=== PATIENT | female | born 1955 | race Caucasian/White ===

== ENCOUNTER 2019-11-07 06:00 | Outpatient (RCR) | payer MEDICARE, SELFPAY | END 2019-12-07 23:59 | disposition home or self-care (01) | LOC: TPT 06:00 | PROVIDERS: PCP Nurse Practitioner; Referring Provider Specialist; Visit Provider Specialist | DX: M75.02 Adhesive capsulitis of left shoulder (principal) | CPT/HCPCS: 80053; 80061; 82306; 84443; 85025 ==

== ENCOUNTER 2020-08-23 12:28 | Emergency (ER) | payer MEDICARE, SELFPAY ==
--- NOTE | 2020-08-23 12:34 | ECG_ITS ---
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 Measurements Intervals Proctor Rate: 75 P: 46 OH: 173 QRS: 8 QRSD: 76 T: 75 QT: 395 QTc: 444 Interpretive Statements SINUS RHYTHM SEPTAL MYOCARDIAL INFARCTION , OF INDETERMINATE AGE [40+ ms Q WAVE IN V1/V2] No previous ECG available for comparison Electronically Signed On 08-24-2020 6:50:28 CDT by Leigh Pratt M.D. [email or web address] [email or web address] – the jewish hospitalKids Quizine/store/[id number]
--- NOTE | 2020-08-23 12:34 | CT_ITS ---
WS: [id number] CT HEAD TECHNIQUE: Noncontrast CT of the head obtained from the skullbase to the vertex. CLINICAL INFORMATION: Symptoms of Acute Stroke COMPARISON: None. DLP: 835.[address] scans at [facility] use at least one of these dose optimization techniques: automat ed exposure control; mA and/or kV adjustment per patient size (includes targeted exams where dose is matched to clinical indication); or iterative reconstruction. FINDINGS: No evidence of intracranial hemorrhage or mass effect. Ventricular system and basal cisterns are zamarripa nt. Mild small vessel changes with mild parenchymal volume loss. Chronic infarct with encephalomalaci a involving the left caudate and lentiform nucleus. No extra-axial fluid collections. No evidence of mass or mass effect. Mild intracranial vascular calcification. Paranasal sinuses and mastoid air cells are well aerated. .Normal visualized soft tissues. CT/CT head wo con* [id number] IMPRESSION: 1. No evidence of intracranial hemorrhage or mass effect. 2. Mild small vessel changes moderate parenchymal volume loss. 3. Chronic lacunar infarcts left caudate and lentiform nucleus. 4. No acute intracranial findings. Notified Gaston Gomez DO at 08/23/2020 1:30 PM.
--- NOTE | 2020-08-23 12:34 | XRR_ITS ---
PROCEDURE INFORMATION: Exam: XR Chest Exam date and time: 08/23/2020 12:56 PM Age: 64 years old Clinical indication: Dyspnea TECHNIQUE: Imaging protocol: XR of the chest. Views: 1 view. COMPARISON: No relevant prior studies available. FINDINGS: Lungs: Unremarkable. No consolidation. Pleural spaces: Unremarkable. No pleural effusion. No pneumothorax. Heart/Mediastinum: Unremarkable. No cardiomegaly. Bones/joints: Unremarkable. XR/XR chest 1V portable [id number] IMPRESSION: No acute findings.
[2020-08-23 12:40] VITALS: BP 208/119; PULSE 88; RESP 16; TEMP 36.6; O2SAT 98; BMI 33.9
[2020-08-23 13:06] LABS: Basophils # 0.1 10^3/uL (0.0-0.1); Basophils % 1.1 %; Eosinophils # 0.3 10^3/uL (0.0-0.8); Eosinophils % 3.3 %; Hematocrit 45.3 % (37.0-47.0); Hemoglobin 14.7 g/dL (11.5-15.3); Lymphocytes % 36.6 %; Mean Corpuscular HGB Conc 32.5 g/dL (30.0-36.0); Mean Corpuscular Hemoglobin 30.1 pg (28.0-34.0); Mean Corpuscular Volume 92.8 fL (81-99); Mean Platelet Volume 10.9 fL (7.4-10.4); Monocytes # 0.7 10^3/uL (0.2-0.9); Monocytes % 8.3 %; Neutrophils % 50.6 %; Nucleated Red Blood Cells % 0 %; Platelet Count 299 10^3/cmm (130-400); Red Blood Count 4.88 10^6/uL (4.1-5.3); Red Cell Distribution Width 13.3 % (12.1-15.1); White Blood Count 8.3 10^3/uL (4.0-10.0)
[2020-08-23 13:16] LABS: Urine Appearance Clear (CLEAR); Urine Color Straw (Yellow); pH Urine 7 (5-7)
[2020-08-23 13:17] LABS: Add Urine Microscopic? YES; Bilirubin Urine Neg (Negative); Blood Urine 2+ (Negative); Glucose Urine UA Norm (Normal); Ketones Urine Negative (Negative); Leukocyte Esterase Urine Negative (Negative); Nitrate Urine Negative (Negative); Protein Urine Neg (Negative); Urobilinogen Urine Norm (Negative)
[2020-08-23 13:29] LABS: Amphetamines Screen Urine Negative (Negative); Barbiturates Screen Urine Negative (Negative); Benzodiazepines Screen Urine Negative (Negative); Cocaine Screen Urine Negative (Negative); Opiate Screen Urine Negative (Negative); PCP Screen Urine Negative (Negative); THC Screen Urine Negative (Negative)
[2020-08-23 13:37] LABS: Add Urine Culture? No; Bacteria Urine TRACE /hpf; Squamous Epithelial Cell Urine 0-4 /hpf (0-5)
[2020-08-23 13:47] LABS: Alanine Aminotransferase 13 U/L (0-33); Albumin Level 4.7 g/dL (3.5-5.2); Alkaline Phosphatase 83 IU/L (35-105); Aspartate Amino Transferase 18 U/L (0-32); Blood Urea Nitrogen 12 mg/dL (8-23); Calcium 9.1 mg/dL (8.5-10.5); Carbon Dioxide 27 mmol/L (22-29); Chloride 103 mmol/L (98-107); Globulin 2.7 g/dL (1.3-4.6); Glomerular Filtration Rate 62.8 mL/min (90-130); Glucose 86 mg/dL (65-115); Osmolality Calculated 289 mOsm/kg (285-295); Sodium 140 mmol/L (136-145); Total Bilirubin 0.3 mg/dL (0.15-1.2); Total Protein 7.4 g/dL (6.6-8.7)
[2020-08-23 13:50] LABS: Anion Gap 14.5 (5-19); Potassium 4.5 mmol/L (3.5-5.1)
[2020-08-23 14:02] LABS: INR 0.91 (0.8-1.2); Partial Thromboplastin Time 26.3 SECONDS (23.9-36.7)
[2020-08-23 14:50] VITALS: BP 183/94; PULSE 78; RESP 18; O2SAT 98
--- NOTE | 2020-08-23 14:55 | W.ED.DIZZY ---
HPI - Dizziness General: Chief Complaint: Dizziness Stated Complaint: dizzy, HTN, family states slurring words Time Seen by Provider: 08/23/20 12:53 Source: patient and family () Mode of arrival: ambulatory Limitations: no limitations History of Present Illness: HPI Narrative: This is a 64-year-old female with a prior history of hypertension but who has been off her antihypertensives for many years because she says her blood pressure was under control. She has no prior history of CVA. She was in her usual state of health until earlier today when her noticed that she was slurring her speech. At that time her blood pressure was significantly elevated with his systolic in the 200s when he saw her. He gave her one of his lisinopril tablets to attempt to bring her blood pressure down and then brought her to the emergency department to be evaluated. He also states that he thinks the left side of her face was drooping. The patient states that her symptoms have resolved now, she is no longer slurring her words and she feels almost back to her baseline. No focal weakness. MD elicited complaint: dizziness Onset (ago): hour(s) (2) Timing: sudden onset Severity: mild Exacerbating factors: nothing Relieving factors: rest Associated symptoms: Reports headache(s); Denies abnormal vaginal bleeding, change in hearing, chest pain, chills, cough, diaphoresis, ear discharge, ear pressure, fevers/chills, malaise, nausea, nasal congestion, palpitations, rash, short of breath, syncope, tinnitus, vomiting or weakness Associated neuro symptoms: Deny confusion, difficulty speaking, dysphagia, diplopia, extremity weakness, facial numbness, facial weakness, gait changes, numbness in extremities or visual changes Review of Systems General: Reports: 10 or more systems reviewed and unremarkable except in HPI and below Const: Denies: chills, malaise or diaphoresis ENMT: Denies: ear discharge, change in hearing, tinnitus or nasal congestion Card: Denies: chest pain, palpitations or syncope GI: Denies: nausea, vomiting or dysphagia Neuro: Reports: headache(s); Denies: numbness in extremities or confusion Physical Exam Const: COMMON NORMALS: no acute distress, average body habitus, patient oriented x3, no limitations, healthy appearing, alert and well nourished HENMT: COMMON NORMALS: normocephalic, atraumatic and moist oral mucous membranes HEAD & SCALP: normocephalic and atraumatic Eye: COMMON NORMALS: Equal, round and reactive pupils present, EOMs intact bilaterally, conjunctivae normal and no scleral icterus CONJUNCTIVA: Yes conjunctivae normal PUPIL: Yes Equal, round and reactive pupils present Neck/C-Spine: COMMON NORMALS: no meningeal signs and no JVD Resp: COMMON NORMALS: normal respiratory effort, No retractions, No use of accessory muscles, clear to auscultation bilaterally and percussion normal AUSCULTATION: clear to auscultation bilaterally PERCUSSION: percussion normal Cardio: COMMON NORMALS: no JVD, regular rate, regular rhythm, S1 normal heart sound present, S2 normal heart sound present, No gallops present (Cardio), No clicks present (Cardio), No murmurs present (Cardio), No rub (Cardio) and Peripheral pulses 2+ throughout RATE: regular rate RHYTHM: regular rhythm HEART SOUNDS: S1 normal heart sound present and S2 normal heart sound present PERIPHERAL PULSES: Peripheral pulses 2+ throughout GI: COMMON NORMALS: Normal to inspection, nondistended, normoactive bowel sounds present, Soft to palpation, non-tender, No hepatosplenomegaly present, no masses and no bruits PALPATION: Yes Soft to palpation and Yes No hepatosplenomegaly present Extremity: COMMON NORMALS: normal to inspection, full ROM, capillary refill normal, no calf tenderness and no pedal edema Neuro: COMMON NORMALS: patient oriented x3 SENSORIUM/ORIENTATION: Yes alert MENINGEAL SIGNS: Yes no meningeal signs OTHER: NIHSS zero Skin: COMMON NORMALS: no rashes or lesions noted, no wounds, turgor normal, no jaundice, no petechiae and no mottling GENERAL SKIN EXAM: no rashes or lesions noted and turgor normal Course Reevaluation(s): Reevaluation #1: Discussed her lab and imaging findings with her. Explained to her NIHSS score of 0 [address] her [address] Since her symptoms have all resolved I do not think there is any need for further aggressive work-up. She may benefit from some outpatient evaluation such as carotid Dopplers, echocardiogram. Patient and her were hesitant as they said they are uninsured and he may not be able to afford these test. I however advised that she start antihypertensives, statin, but she is unable to take aspirin. Since she said her blood pressure was well controlled with lisinopril 10 mg we will start her on the same medication and she is to follow-up with her primary care provider. They voiced understanding and they are in agreement with the plan. I explained that she may have had a TIA or may be her blood pressure was just high Time: 14:55 Vital Signs: Vital signs: Vital Signs Temperature 97.9 F 08/23/20 12:40 Pulse Rate 78 08/23/20 14:50 Respiratory Rate 18 08/23/20 14:50 Blood Pressure 183/94 08/23/20 14:50 Pulse Oximetry 98 08/23/20 14:50 MDM - Dizziness MDM Narrative: Medical decision making narrative: 64-year-old female patient who came into the emergency department with slurred speech, possible facial droop, all of which had resolved prior to arrival at the ED. Blood pressure was significantly elevated, however it improved without intervention. She used to be on antihypertensives but has been off her antihypertensives for several years. She was given a prescription for lisinopril and atorvastatin. She will follow-up with her primary care provider. Medical Records: Attestation: I reviewed the patient's medical records. Lab Data: Attestation: I reviewed the patient's lab results. Labs: Lab Results 08/23/20 08/23/20 08/23/20 Range/Units 13:00 13:00 13:00 WBC 8.3 (4.0-10.0) 10^3/ uL RBC 4.88 (4.1-5.3) 10^6/u L Hgb 14.7 (11.5-15.3) g/dL Hct 45.3 (37.0-47.0) % MCV 92.8 (81-99) fL MCH 30.1 (28.0-34.0) pg MCHC 32.5 (30.0-36.0) g/dL RDW 13.3 (12.1-15.1) % Plt Count 299 (130-400) 10^3/c mm MPV 10.9 H (7.4-10.4) fL Neut % (Auto) 50.6 % Lymph % (Auto) 36.6 % Rapides % (Auto) 8.3 % Eos % (Auto) 3.3 % Baso % (Auto) 1.1 % Neut # (Auto) 4.20 (1.8-7.7) 10^3/u L Lymph # (Auto) 3.0 (0.8-4.8) 10^3/u L Rapides # (Auto) 0.7 (0.2-0.9) 10^3/u L Eos # (Auto) 0.3 (0.0-0.8) 10^3/u L Baso # (Auto) 0.1 (0.0-0.1) 10^3/u L Nucleated RBC % (a uto) 0 % Nucleated RBCs # 0.0 /100WBC PT (12.1-14.9) SECO NDS INR (0.8-1.2) APTT (23.9-36.7) SECO NDS Sodium 140 (136-145) mmol/L Potassium 4.5 (3.5-5.1) mmol/L Chloride 103 (98-107) mmol/L Carbon Dioxide 27 (22-29) mmol/L Anion Gap 14.5 (5-19) BUN 12 (8-23) mg/dL Creatinine 0.9 (0.5-0.9) mg/dL GFR Calculation 62.8 L (90-130) mL/min Glucose 86 (65-115) mg/dL Calculated Osmolal ity 289 (285-295) mOsm/k g Calcium 9.1 (8.5-10.5) mg/dL Total Bilirubin 0.3 (0.15-1.2) mg/dL AST 18 (0-32) U/L ALT 13 (0-33) U/L Alkaline Phosphata se 83 (35-105) IU/L Total Protein 7.4 (6.6-8.7) g/dL Albumin 4.7 (3.5-5.2) g/dL Globulin 2.7 (1.3-4.6) g/dL Urine Color Straw (Yellow) Urine Appearance Clear (CLEAR) Urine pH 7 (5-7) Ur Specific Gravit y 1.010 (1.005-1.030) Urine Protein Neg (Negative) Urine Glucose (UA) Norm (Normal) Urine Ketones Negative (Negative) Urine Blood 2+ H (Negative) Urine Nitrate Negative (Negative) Urine Bilirubin Neg (Negative) Urine Urobilinogen Norm (Negative) mg/dL Ur Leukocyte Soila ase Negative (Negative) Urine RBC 5-10 H (0-2) /hpf Urine WBC None (0-5) /hpf Ur Squamous Epith Cells 0-4 H (0-5) /hpf Amorphous Sediment Not Reportable Urine Bacteria Trace (NONE) /hpf Urine Opiates Scre en (Negative) ng/mL Ur Barbiturates Sc reen (Negative) ng/mL Ur Phencyclidine S crn (Negative) ng/mL Ur Amphetamines Sc reen (Negative) ng/mL U Benzodiazepines Scrn (Negative) ng/mL Urine Cocaine Scre en (Negative) ng/mL U Marijuana (THC) Screen (Negative) ng/mL 08/23/20 08/23/20 Range/Units 13:00 13:44 WBC (4.0-10.0) 10^3/ uL RBC (4.1-5.3) 10^6/u L Hgb (11.5-15.3) g/dL Hct (37.0-47.0) % MCV (81-99) fL MCH (28.0-34.0) pg MCHC (30.0-36.0) g/dL RDW (12.1-15.1) % Plt Count (130-400) 10^3/c mm MPV (7.4-10.4) fL Neut % (Auto) % Lymph % (Auto) % Rapides % (Auto) % Eos % (Auto) % Baso % (Auto) % Neut # (Auto) (1.8-7.7) 10^3/u L Lymph # (Auto) (0.8-4.8) 10^3/u L Rapides # (Auto) (0.2-0.9) 10^3/u L Eos # (Auto) (0.0-0.8) 10^3/u L Baso # (Auto) (0.0-0.1) 10^3/u L Nucleated RBC % (a uto) % Nucleated RBCs # /100WBC PT 12.50 (12.1-14.9) SECO NDS INR 0.91 (0.8-1.2) APTT 26.3 (23.9-36.7) SECO NDS Sodium (136-145) mmol/L Potassium (3.5-5.1) mmol/L Chloride (98-107) mmol/L Carbon Dioxide (22-29) mmol/L Anion Gap (5-19) BUN (8-23) mg/dL Creatinine (0.5-0.9) mg/dL GFR Calculation (90-130) mL/min Glucose (65-115) mg/dL Calculated Osmolal ity (285-295) mOsm/k g Calcium (8.5-10.5) mg/dL Total Bilirubin (0.15-1.2) mg/dL AST (0-32) U/L ALT (0-33) U/L Alkaline Phosphata se (35-105) IU/L Total Protein (6.6-8.7) g/dL Albumin (3.5-5.2) g/dL Globulin (1.3-4.6) g/dL Urine Color (Yellow) Urine Appearance (CLEAR) Urine pH (5-7) Ur Specific Gravit y (1.005-1.030) Urine Protein (Negative) Urine Glucose (UA) (Normal) Urine Ketones (Negative) Urine Blood (Negative) Urine Nitrate (Negative) Urine Bilirubin (Negative) Urine Urobilinogen (Negative) mg/dL Ur Leukocyte Soila ase (Negative) Urine RBC (0-2) /hpf Urine WBC (0-5) /hpf Ur Squamous Epith Cells (0-5) /hpf Amorphous Sediment Urine Bacteria (NONE) /hpf Urine Opiates Scre en Negative (Negative) ng/mL Ur Barbiturates Sc reen Negative (Negative) ng/mL Ur Phencyclidine S crn Negative (Negative) ng/mL Ur Amphetamines Sc reen Negative (Negative) ng/mL U Benzodiazepines Scrn Negative (Negative) ng/mL Urine Cocaine Scre en Negative (Negative) ng/mL U Marijuana (THC) Screen Negative (Negative) ng/mL Imaging Data^: CXR: Attestation: I personally reviewed and interpreted this imaging study as follows: Radiologist's impression: [address] [id number] ReportSigned Patient: Connie Daugherty #: [id number]: 5Acct#:[id number]/Sex: 64 / FADM Date: 08/23/20Loc: ERRoom/Bed:Attending Dr: Ordering Provider/Ordering MD: Gaston Gomez DO Date of Service: 08/23/20 Procedure(s): XR chest 1V portable [id number] Accession Number(s): [id number] Report Number: [id number] PROCEDURE INFORMATION: Exam: XR Chest Exam date and time: 08/23/2020 12:56 PM Age: 64 years old Clinical indication: Dyspnea TECHNIQUE: Imaging protocol: XR of the chest. Views: 1 view. COMPARISON: No relevant prior studies available. FINDINGS: Lungs: Unremarkable. No consolidation. Pleural spaces: Unremarkable. No pleural effusion. No pneumothorax. Heart/Mediastinum: Unremarkable. No cardiomegaly. Bones/joints: Unremarkable. XR/XR chest 1V portable [id number] IMPRESSION: No acute findings. Dictated By:Laly Osorio By:Laly Osorio Date/Time:08/23/20 1313DD/ 1312 CT Head: Attestation: I personally reviewed and interpreted this imaging study as follows: Radiologist's impression: [address] [id number] Scan ReportSigned Patient: Connie Daugherty #: [id number]: 5Acct#:[id number]/Sex: 64 / FADM Date: 08/23/20Loc: ERRoom/Bed:Attending Dr: Ordering Provider/Ordering MD: Gaston Gomez DO Date of Service: 08/23/20 Procedure(s): CT head wo con* [id number] Accession Number(s): [id number] Report Number: [id number] WS: [id number] CT HEAD TECHNIQUE: Noncontrast CT of the head obtained from the skullbase to the vertex. CLINICAL INFORMATION: Symptoms of Acute Stroke COMPARISON: None. DLP: 835.[address] scans at [facility] use at least one of these dose optimization techniques: automated exposure control; mA and/or kV adjustment per patient size (includes targeted exams where dose is matched to clinical indication); or iterative reconstruction. FINDINGS: No evidence of intracranial hemorrhage or mass effect. Ventricular system and basal cisterns are patent. Mild small vessel changes with mild parenchymal volume loss. Chronic infarct with encephalomalacia involving the left caudate and lentiform nucleus. No extra-axial fluid collections. No evidence of mass or mass effect. Mild intracranial vascular calcification. Paranasal sinuses and mastoid air cells are well aerated. .Normal visualized soft tissues. CT/CT head wo con* [id number] IMPRESSION: 1. No evidence of intracranial hemorrhage or mass effect. 2. Mild small vessel changes moderate parenchymal volume loss. 3. Chronic lacunar infarcts left caudate and lentiform nucleus. 4. No acute intracranial findings. Notified Gaston Gomez DO at 08/23/2020 1:30 PM. Dictated By:Arnaldo Paulson MDSigned By:Arnaldo Paulson MDSigned Date/Time:08/23/20 1332DD/ 1324 EKG Data^: EKG 1: Attestation: I personally reviewed and interpreted this EKG as follows: EKG interpretation date: 08/23/20 EKG interpretation time: 13:45 Prior EKG tracings: not available for review Interpretation: Sinus rhythm. Heart rate [address] changes. Discharge Plan Discharge Patient Disposition: Home Clinical Impression: TIA (transient ischemic attack), Hypertensive urgency Condition: Stable Prescriptions: New lisinopril 10 mg tablet 10 mg PO DAILY Qty: 30 RF: 0 Lipitor 40 mg tablet 40 mg PO DAILY Qty: 30 RF: 0 Discharge Orders: Discharge ED (Routine); Ordered 08/23/20 Ordered By: Jennifer Alicia Discharge Diet: Usual diet Discharge Activity: Increase activity as tolerated Patient Instructions: Transient Ischemic Attack (ED), Hypertensive Crisis (ED) Activity Restrictions/Additional Instructions: Return for any new or worsening symptoms. Take the medications as prescribed. It is important to get your blood pressure under control to prevent worsening symptoms. Follow-up with your primary care provider within 3 days. Check your blood pressure at least once a day and keep a record of your readings so that your doctor can monitor your blood pressures and make adjustments if necessary. Coding Level of Care Code ED Business Systems Advisor for Chg Fwd Exam Comprehensive
== END 2020-08-23 15:17 | disposition home or self-care (01) ==
PROVIDERS: Family Medicine; Emergency Provider Family Medicine
DX: G45.9 Transient cerebral ischemic attack, unspecified (principal); I16.0 Hypertensive urgency
CPT/HCPCS: 70450; 71045; 80053; 80306; 81001; 85025; 85610; 85730; 93005; 99283

== ENCOUNTER 2020-08-23 19:50 | Inpatient (IN) | payer MEDICARE, SELFPAY ==
[2020-08-23 19:53] VITALS: BP 276/142; PULSE 89; RESP 18; TEMP 36.3; O2SAT 98; BMI 34.3
--- NOTE | 2020-08-23 19:56 | XRR_ITS ---
PROCEDURE INFORMATION: Exam: XR Chest Exam date and time: 08/23/2020 8:01 PM Age: 64 years old Clinical indication: Pain; Chest pressure; Additional info: Cp TECHNIQUE: Imaging protocol: XR of the chest. Views: 1 view. COMPARISON: CR XR chest 1V portable [id number] 08/23/2020 12:46 PM FINDINGS: Lungs: Mild chronic interstitial prominence in the lungs. The lungs are otherwise clear. No consolidation. Pleural spaces: Unremarkable. No pleural effusion. No pneumothorax. Heart/Mediastinum: Unremarkable. No cardiomegaly. Bones/joints: Mild thoracic curvature. XR/XR chest 1V portable [id number] IMPRESSION: No acute finding.
--- NOTE | 2020-08-23 19:56 | CTR_ITS ---
PROCEDURE INFORMATION: Exam: CT Angiography Head With Contrast, Arteriography Exam date and time: 08/23/2020 8:25 PM Age: 64 years old Clinical indication: Pain; Weakness and other: Nausea; Headache; Additional info: RAYA TECHNIQUE: Imaging protocol: Computed tomography angiography of the head with contrast. Exam focused on the arteries. 3D rendering (Not supervised by radiologist): MIP and/or 3D reconstructed images were created by the technologist. Radiation optimization: All CT scans at this facility use at least one of these dose optimization techniques: automated exposure control; mA and/or kV adjustment per patient size (includes targeted exams where dose is matched to clinical indication); or iterative reconstruction. Contrast material: OMNI 350; Contrast volume: 95 ml; Contrast route: INTRAVENOUS (IV); COMPARISON: CT head wo con* [id number] 08/23/2020 8:19 PM RADIATION DOSE METRICS: Total DLP (mGy-cm): 2283.23 FINDINGS: ANTERIOR CIRCULATION: Right internal carotid artery: Calcified plaque in the cavernous right internal carotid artery with moderate focal stenosis in the supraclinoid portion. Right middle cerebral artery: Unremarkable. No occlusion or significant stenosis. No aneurysm. Right anterior cerebral artery: Unremarkable. No occlusion or significant stenosis. No aneurysm. Left internal carotid artery: Mild calcified plaque in the left cavernous internal carotid artery without stenosis. Left middle cerebral artery: Unremarkable. No occlusion or significant stenosis. No aneurysm. Left anterior cerebral artery: Unremarkable. No occlusion or significant stenosis. No aneurysm. POSTERIOR CIRCULATION: Right vertebral artery: Unremarkable. No occlusion or significant stenosis. No aneurysm. Left vertebral artery: Unremarkable. No occlusion or significant stenosis. No aneurysm. Basilar artery: Unremarkable. No occlusion or significant stenosis. No aneurysm. Right posterior cerebral artery: Unremarkable. No occlusion or significant stenosis. No aneurysm. Left posterior cerebral artery: Unremarkable. No occlusion or significant stenosis. No aneurysm. Brain: No definite mass, mass effect, or midline shift. Cerebral ventricles: No ventriculomegaly. Bones/joints: Unremarkable. No acute fracture. Soft tissues: Unremarkable. IMPRESSION: 1. Moderate focal stenosis in the supraclinoid right internal carotid artery, most likely atherosclerotic disease. 2. No other large artery occlusion or stenosis identified. PROCEDURE INFORMATION: Exam: CT Angiography Neck With Contrast Exam date and time: 08/23/2020 8:25 PM Age: 64 years old Clinical indication: Pain; Weakness and other: Nausea; Headache; Additional info: RAYA TECHNIQUE: Imaging protocol: Computed tomography angiography of the neck with contrast. 3D rendering (Not supervised by radiologist): MIP and/or 3D reconstructed images were created by the technologist. Radiation optimization: All CT scans at this facility use at least one of these dose optimization techniques: automated exposure control; mA and/or kV adjustment per patient size (includes targeted exams where dose is matched to clinical indication); or iterative reconstruction. Contrast material: OMNI 350; Contrast volume: 95 ml; Contrast route: INTRAVENOUS (IV); COMPARISON: CT head wo con* [id number] 08/23/2020 8:19 PM RADIATION DOSE METRICS: Total DLP (mGy-cm): 2283.23 FINDINGS: Right common carotid artery: Hypodense segmental narrowing in the proximal right common carotid artery measures up to 3 mm in thickness and contributes up to 50% diameter stenosis. Right internal carotid artery: No stenosis of the extracranial segment. No dissection or occlusion. Right external carotid artery: No occlusion or stenosis of the origin. Right vertebral artery: No stenosis. No dissection or occlusion. Left common carotid artery: The left common carotid artery is widely patent and shares a common trunk with the innominate artery. Left internal carotid artery: No stenosis of the extracranial segment. No dissection or occlusion. Left external carotid artery: No occlusion or stenosis of the origin. Left vertebral artery: Tortuosity with kinking and mild narrowing in the proximal left vertebral artery. Otherwise widely patent. Subclavian arteries: Calcified plaque in the proximal left subclavian artery without stenosis. Thyroid: Subcentimeter hypodense nodule in the right thyroid lobe. No follow-up ultrasound is recommended. Bones/joints: No acute fracture. Soft tissues: Normal. No significant soft tissue swelling. Lymph nodes: Prominent mediastinal and hilar lymph nodes are most likely reactive. Calcified mediastinal lymph node. Lungs: Emphysema. CT/CT angio headneck* [id number] IMPRESSION: 1. 50% segmental narrowing of the proximal right common carotid artery is most likely atherosclerotic plaque. A small dissection cannot be entirely excluded. 2. No internal carotid artery stenosis. 3. Kinking and mild narrowing of the proximal left vertebral artery. COMMENTS: Consistent with the [employer]'s Incidental Findings Committee white paper (J Am Chelsey Radiol 2015): In patients aged 35 years and older with an incidental thyroid nodule equal to or greater than 1.[address], MRI or extrathyroidal US, further evaluation with dedicated thyroid US is recommended for patients with normal life expectancy and without comorbidities. For smaller nodules without suspicious features, no further evaluation or follow up is recommended. REFERENCES: NASCET CRITERIA. The degree of internal carotid artery stenosis is based on NASCET criteria. Normal is no stenosis. Mild is less than 50% stenosis. Moderate is 50-69% stenosis. Severe is 70% to 99% stenosis. Total occlusion is no detectable patent lumen. Radiation Dose CTDIVOL = (mGy): DLP = 2283.23~2283.23 (mGy-cm)
--- NOTE | 2020-08-23 19:58 | ECG_ITS ---
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 Measurements Intervals Malcolm Rate: 69 P: 57 WI: 175 QRS: 9 QRSD: 90 T: 77 QT: 424 QTc: 456 Interpretive Statements SINUS RHYTHM NONSPECIFIC T-WAVE ABNORMALITY Compared to ECG 08/23/2020 13:45:14 T-wave abnormality now present Myocardial infarct finding no longer present Electronically Signed On 08-25-2020 10:06:01 CDT by Thomas Kebede M.D. [id number]
--- NOTE | 2020-08-23 20:00 | W.ED.HA ---
HPI - Headache General: Chief Complaint: Headache Stated Complaint: RAYA Time Seen by Provider: 08/23/20 19:51 Source: patient and EMS Mode of arrival: EMS Limitations: no limitations History of Present Illness: HPI Narrative: 64-year-old female seen here earlier today for hypertensive emergency. Patient had a CT head and told she possibly could have a TIA as she had TIA-like symptoms but all her symptoms had completely resolved and her blood pressures improved. States that she went home and couple hours later started having a severe headache. She states she had difficulty walking and some slurred speech Associated symptoms: Deny chest pain, fever(s), nausea, rash or vomiting Review of Systems Const: Denies: fever(s), chills, body aches or change in appetite Eyes: Denies: blurry vision or eye discomfort ENMT: Denies: throat pain or dental pain Card: Denies: chest pain Resp: Denies: dyspnea GI: Denies: abdominal pain, nausea, vomiting or diarrhea : Denies: dysuria Musc: Denies: neck pain or back pain Skin/Breast: Denies: rash Neuro: Reports: headache(s) Psych: Denies: depression Seb/Lymph: Denies: easy bruising All/Imm: Denies: urticaria Physical Exam Const: COMMON NORMALS: no acute distress, patient oriented x3 and healthy appearing HENMT: COMMON NORMALS: normocephalic and atraumatic HEAD & SCALP: normocephalic and atraumatic Eye: COMMON NORMALS: Equal, round and reactive pupils present and EOMs intact bilaterally PUPIL: Yes Equal, round and reactive pupils present Neck/C-Spine: COMMON NORMALS: full ROM and supple Chest: COMMONS NORMALS: normal inspection of the chest and normal palpation of entire chest wall Resp: COMMON NORMALS: normal respiratory effort, No retractions, No use of accessory muscles and clear to auscultation bilaterally AUSCULTATION: clear to auscultation bilaterally Cardio: COMMON NORMALS: regular rate, regular rhythm and No murmurs present (Cardio) RATE: regular rate RHYTHM: regular rhythm GI: COMMON NORMALS: Normal to inspection, nondistended, normoactive bowel sounds present, Soft to palpation, non-tender and no masses PALPATION: Yes Soft to palpation Extremity: COMMON NORMALS: normal to inspection and full ROM Neuro: COMMON NORMALS: patient oriented x3, moves all extremities and no focal motor deficits CRANIAL NERVES: Yes CN normal except as noted SPEECH: speech normal GAIT: Yes Normal gait present Psych: COMMON NORMALS: mental status grossly normal, Normal thought process present and cooperative THOUGHT PROCESS: Normal thought process present Skin: COMMON NORMALS: no rashes or lesions noted and no wounds GENERAL SKIN EXAM: no rashes or lesions noted Course Vital Signs: Vital signs: Vital Signs Temperature 97.4 F L 08/23/20 19:53 Pulse Rate 71 08/23/20 22:20 Respiratory Rate 18 08/23/20 20:59 Blood Pressure 174/80 08/23/20 22:20 Pulse Oximetry 96 08/23/20 22:20 MDM - Headache MDM Narrative: Medical decision making narrative: Patient presents with hypertensive emergency. Patient's headache is improved and her blood pressure is improved here as well. She has no signs of a CVA. Spoke to Dr. Salcedo went over CT findings and will admit to the cardiac stepdown unit. Spoke to hospitalist who is admitting. Patient has been stable while here and is now pain-free and has no neurologic findings. Lab Data: Labs: Lab Results 08/23/20 08/23/20 08/23/20 Range/Units 20:00 20:00 20:00 WBC 10.7 H (4.0-10.0) 10^3/ uL RBC 4.81 (4.1-5.3) 10^6/u L Hgb 14.4 (11.5-15.3) g/dL Hct 44.3 (37.0-47.0) % MCV 92.1 (81-99) fL MCH 29.9 (28.0-34.0) pg MCHC 32.5 (30.0-36.0) g/dL RDW 13.2 (12.1-15.1) % Plt Count 291 (130-400) 10^3/c mm MPV 10.8 H (7.4-10.4) fL Neut % (Auto) 46.3 % Lymph % (Auto) 38.9 % Mcintosh % (Auto) 11.1 % Eos % (Auto) 2.5 % Baso % (Auto) 1.0 % Neut # (Auto) 4.95 (1.8-7.7) 10^3/u L Lymph # (Auto) 4.2 (0.8-4.8) 10^3/u L Mc[place]osh # (Auto) 1.2 H (0.2-0.9) 10^3/u L Eos # (Auto) 0.3 (0.0-0.8) 10^3/u L Baso # (Auto) 0.1 (0.0-0.1) 10^3/u L Nucleated RBC % (a uto) 0 % Nucleated RBCs # 0.0 /100WBC PT 12.60 (12.1-14.9) SECO NDS INR 0.92 (0.8-1.2) Sodium 140 (136-145) mmol/L Potassium 4.1 (3.5-5.1) mmol/L Chloride 104 (98-107) mmol/L Carbon Dioxide 27 (22-29) mmol/L Anion Gap 13.1 (5-19) BUN 17 (8-23) mg/dL Creatinine 1.2 H (0.5-0.9) mg/dL GFR Calculation 45.1 L (90-130) mL/min Glucose 74 (65-115) mg/dL Calculated Osmolal ity 290 (285-295) mOsm/k g Calcium 8.9 (8.5-10.5) mg/dL Total Bilirubin 0.2 (0.15-1.2) mg/dL AST 14 (0-32) U/L ALT 11 (0-33) U/L Alkaline Phosphata se 76 (35-105) IU/L Troponin T Baselin e (0-10) ng/L Total Protein 7.1 (6.6-8.7) g/dL Albumin 4.2 (3.5-5.2) g/dL Globulin 2.9 (1.3-4.6) g/dL 08/23/20 Range/Units 20:00 WBC (4.0-10.0) 10^3/ uL RBC (4.1-5.3) 10^6/u L Hgb (11.5-15.3) g/dL Hct (37.0-47.0) % MCV (81-99) fL MCH (28.0-34.0) pg MCHC (30.0-36.0) g/dL RDW (12.1-15.1) % Plt Count (130-400) 10^3/c mm MPV (7.4-10.4) fL Neut % (Auto) % Lymph % (Auto) % Mcintosh % (Auto) % Eos % (Auto) % Baso % (Auto) % Neut # (Auto) (1.8-7.7) 10^3/u L Lymph # (Auto) (0.8-4.8) 10^3/u L Mcintosh # (Auto) (0.2-0.9) 10^3/u L Eos # (Auto) (0.0-0.8) 10^3/u L Baso # (Auto) (0.0-0.1) 10^3/u L Nucleated RBC % (a uto) % Nucleated RBCs # /100WBC PT (12.1-14.9) SECO NDS INR (0.8-1.2) Sodium (136-145) mmol/L Potassium (3.5-5.1) mmol/L Chloride (98-107) mmol/L Carbon Dioxide (22-29) mmol/L Anion Gap (5-19) BUN (8-23) mg/dL Creatinine (0.5-0.9) mg/dL GFR Calculation (90-130) mL/min Glucose (65-115) mg/dL Calculated Osmolal ity (285-295) mOsm/k g Calcium (8.5-10.5) mg/dL Total Bilirubin (0.15-1.2) mg/dL AST (0-32) U/L ALT (0-33) U/L Alkaline Phosphata se (35-105) IU/L Troponin T Baselin e 8 (0-10) ng/L Total Protein (6.6-8.7) g/dL Albumin (3.5-5.2) g/dL Globulin (1.3-4.6) g/dL Imaging Data^: CT Head: Attestation: I personally reviewed and interpreted this imaging study as follows: Radiologist's impression: [address] [address] [address] Scan Report Signed Patient: Arianne Daugherty Unit #: [id number] : 1955 Age/Sex: 64 / F ADM Date: 08/23/20 Loc: ER Room/Bed: Attending Dr: Ordering Provider/Ordering MD: Miya Minor MD Date of Service: 08/23/20 Procedure(s): CT head wo con* [id number] Accession Number(s): [id number] Report Number: [id number] PROCEDURE INFORMATION: Exam: CT Head Without Contrast Exam date and time: 08/23/2020 8:13 PM Age: 64 years old Clinical indication: Pain; Headache not specified; Additional info: RAYA TECHNIQUE: Imaging protocol: Computed tomography of the head without contrast. Radiation optimization: All CT scans at this facility use at least one of these dose optimization techniques: automated exposure control; mA and/or kV adjustment per patient size (includes targeted exams where dose is matched to clinical indication); or iterative reconstruction. COMPARISON: CT head wo con* [id number] 08/23/2020 1:16 PM RADIATION DOSE METRICS: Total DLP (mGy-cm): 803.02 FINDINGS: Brain: Mild diffuse cortical volume loss. Mild hypodensities in supratentorial periventricular and subcortical white matter, consistent with microangiopathy. No intracranial hemorrhage. Stable lacunar infarcts involving the left caudate head, anterior limb of the left internal capsule, and lentiform nucleus. Cerebral ventricles: No ventriculomegaly. Bones/joints: Unremarkable. No acute fracture. Paranasal sinuses: Visualized sinuses are unremarkable. No fluid levels. Mastoid air cells: Visualized mastoid air cells are well aerated. Vasculature: No hyperdense artery. Soft tissues: Unremarkable. CT/CT head wo con* [id number] IMPRESSION: 1. Stable CT head. No acute findings. 2. Mild microangiopathy and chronic lacunar infarcts. EKG Data^: EKG 1: Attestation: I personally reviewed and interpreted this EKG as follows: EKG interpretation date: 08/23/20 EKG interpretation time: 21:59 Interpretation: nsr hr [address] or t wave abnormalities qrs 90 qtc 443 Discharge Plan Discharge Patient Disposition: Admitted As Inpatient Admit Provider: Raul Pineda Clinical Impression: Hypertensive urgency, Headache Condition: Stable Coding Level of Care Code ED Phlebotomy Director for Chg Fwd Exam Comprehensive
[2020-08-23] MEDS: labetalol 5 mg/mL SDV 20mL 10 MG IVP ×2 (20:02→20:53)
[2020-08-23 20:08] LABS: Basophils # 0.1 10^3/uL (0.0-0.1); Eosinophils # 0.3 10^3/uL (0.0-0.8); Eosinophils % 2.5 %; Hematocrit 44.3 % (37.0-47.0); Hemoglobin 14.4 g/dL (11.5-15.3); Lymphocytes # 4.2 10^3/uL (0.8-4.8); Lymphocytes % 38.9 %; Mean Corpuscular HGB Conc 32.5 g/dL (30.0-36.0); Mean Corpuscular Hemoglobin 29.9 pg (28.0-34.0); Mean Corpuscular Volume 92.1 fL (81-99); Mean Platelet Volume 10.8 fL (7.4-10.4); Monocytes # 1.2 10^3/uL (0.2-0.9); Monocytes % 11.1 %; Neutrophils # 4.95 10^3/uL (1.8-7.7); Neutrophils % 46.3 %; Nucleated Red Blood Cells % 0 %; Platelet Count 291 10^3/cmm (130-400); Red Blood Count 4.81 10^6/uL (4.1-5.3); Red Cell Distribution Width 13.2 % (12.1-15.1); White Blood Count 10.7 10^3/uL (4.0-10.0)
--- NOTE | 2020-08-23 20:08 | PC.NURSE ---
EKG taken and given to provider
--- NOTE | 2020-08-23 20:12 | CTR_ITS ---
PROCEDURE INFORMATION: Exam: CT Head Without Contrast Exam date and time: 08/23/2020 8:13 PM Age: 64 years old Clinical indication: Pain; Headache not specified; Additional info: RAYA TECHNIQUE: Imaging protocol: Computed tomography of the head without contrast. Radiation optimization: All CT scans at this facility use at least one of these dose optimization techniques: automated exposure control; mA and/or kV adjustment per patient size (includes targeted exams where dose is matched to clinical indication); or iterative reconstruction. COMPARISON: CT head wo con* [id number] 08/23/2020 1:16 PM RADIATION DOSE METRICS: Total DLP (mGy-cm): 803.02 FINDINGS: Brain: Mild diffuse cortical volume loss. Mild hypodensities in supratentorial periventricular and subcortical white matter, consistent with microangiopathy. No intracranial hemorrhage. Stable lacunar infarcts involving the left caudate head, anterior limb of the left internal capsule, and lentiform nucleus. Cerebral ventricles: No ventriculomegaly. Bones/joints: Unremarkable. No acute fracture. Paranasal sinuses: Visualized sinuses are unremarkable. No fluid levels. Mastoid air cells: Visualized mastoid air cells are well aerated. Vasculature: No hyperdense artery. Soft tissues: Unremarkable. CT/CT head wo con* [id number] IMPRESSION: 1. Stable CT head. No acute findings. 2. Mild microangiopathy and chronic lacunar infarcts. Radiation Dose CTDIVOL = (mGy): DLP = 803.02 (mGy-cm)
[2020-08-23 20:25] LABS: INR 0.92 (0.8-1.2)
[2020-08-23] MEDS: iohexol 350 mg/mL 100 mL Btl IV (20:28)
[2020-08-23 20:32] LABS: Alanine Aminotransferase 11 U/L (0-33); Albumin Level 4.2 g/dL (3.5-5.2); Alkaline Phosphatase 76 IU/L (35-105); Anion Gap 13.1 (5-19); Aspartate Amino Transferase 14 U/L (0-32); Blood Urea Nitrogen 17 mg/dL (8-23); Calcium 8.9 mg/dL (8.5-10.5); Carbon Dioxide 27 mmol/L (22-29); Chloride 104 mmol/L (98-107); Globulin 2.9 g/dL (1.3-4.6); Glomerular Filtration Rate 45.1 mL/min (90-130); Glucose 74 mg/dL (65-115); Osmolality Calculated 290 mOsm/kg (285-295); Potassium 4.1 mmol/L (3.5-5.1); Sodium 140 mmol/L (136-145); Total Bilirubin 0.2 mg/dL (0.15-1.2); Total Protein 7.1 g/dL (6.6-8.7)
[2020-08-23 20:34] LABS: Troponin(5th) Baseline 8 ng/L (0-10)
[2020-08-23 20:47] VITALS: BP 237/130; PULSE 82; RESP 19; O2SAT 96
[2020-08-23 20:59] VITALS: BP 185/84; PULSE 74; RESP 18; O2SAT 94
--- NOTE | 2020-08-23 21:58 | ECG_ITS ---
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 Measurements Intervals [place] Rate: 68 P: 10 VA: 168 QRS: 42 QRSD: 75 T: -15 QT: 407 QTc: 433 Interpretive Statements SINUS RHYTHM Compared to ECG 08/23/2020 13:45:14 Myocardial infarct finding no longer present Electronically Signed On 08-25-2020 23:58:32 CDT by Thomas Kebede M.D. [id number]
[2020-08-23 22:13] LABS: Troponin 5 2HR 8.63 ng/L (0-10); Troponin 5 2HR Delta 0.63 ABS# (0-10)
[2020-08-23 22:20] VITALS: BP 174/80; PULSE 71; O2SAT 96
--- NOTE | 2020-08-23 22:27 | PM.HP ---
Providers/Chief Complaint Admitting Physician: Raul Pineda Chief Complaint: RAYA History of Present Illness Arianne Daugherty is a 64 year old female with past medical history of hypertension, not treated currently who was initially seen in the emergency room this morning with complaints of headache, slurred speech, nausea, and facial droop. Blood pressure was above 200 at that time. After stabilization of the blood pressure her symptoms resolved and the patient was discharged with prescription for lisinopril and Lipitor home. However her symptoms started again later in the evening and the patient presented to emergency room. This time her blood pressure was in 260-270 range. 2 doses of labetalol were given and most of the symptoms have resolved. Currently she describes mild to moderate headache. CT in the morning and this evening showed no acute abnormalities. She has chronic microvascular changes described. Dr. Salcedo was contacted by ER physician. CTA was ordered: IMPRESSION: 1. 50% segmental narrowing of the proximal right common carotid artery is most likely atherosclerotic plaque. A small dissection cannot be entirely excluded. 2. No internal carotid artery stenosis. 3. Kinking and mild narrowing of the proximal left vertebral artery. Per ED physician, Dr. Salcedo recommended to keep the blood pressure between 160-180. She will see the patient in the morning. No additional testing at this time. The patient reports feeling better now. She reports mild to moderate headache. Her generalized weakness have resolved. No problems with speech, balance, vision at this time. Nausea has resolved. The patient denies associated sensory loss, chest pain, palpitations, vomiting, abdominal pain, fever or chills. Family history. The patient reports family history of hypertension, diabetes and heart disease. Social history. Denies alcohol and drugs. Reports regular tobacco use. Medications are reviewed. Currently takes only Tylenol. Past medical history. Hypertension, untreated Review of Systems General: Reports: 10 or more systems reviewed and unremarkable except in HPI and below Medications/Allergies Home Medications Medication Instructions Recorded Confirmed Last Taken Type atorvastatin [Lipitor] 40 mg PO DAILY #30 tab 08/23/20 Unknown Rx lisinopril 10 mg PO DAILY #30 tab 08/23/20 Unknown Rx Allergies Allergy/AdvReac Type Severity Reaction Status Date / Time codeine Allergy Unknown Verified 08/23/20 22:42 ibuprofen Allergy Unknown Verified 08/23/20 22:42 Penicillins Allergy Unknown Verified 08/23/20 22:42 oral antibiotics Allergy Unknown Uncoded 08/23/20 12:44 Vitals/I&O/Wt Last Vital Signs Temp 97.4 F L 08/23/20 19:53 Pulse 71 08/23/20 22:20 Resp 18 08/23/20 20:59 BP 174/80 08/23/20 22:20 Pulse Ox 96 08/23/20 22:20 Weight last 48 hrs Weight 77.111 kg Physical Exam Narrative: EXAM NARRATIVE: Currently the patient is awake alert oriented. No acute distress. Mood and affect are appropriate. Responses are adequate. Skin is warm and dry. Moist mucous membranes. Normal speech. No dysarthria or aphasia. No facial asymmetry. Cranial nerves II through XII are grossly intact. Eyes PERRL, extraocular muscles are intact No focal deficits or sensory loss on neuro exam. Cerebellar tests are within normal limits. Neck is supple. No JVD Lungs clear to auscultation bilaterally no wheezes or crackles Heart S1, S2, regular Abdomen soft, nontender, bowel sounds are present Extremities no edema cyanosis or calf tenderness bilaterally Data : 08/23/20 20:00 08/23/20 20:00 Other Labs: Laboratory Results WBC 10.7 10^3/uL (4.0-10.0) H 08/23/20 20:00 RBC 4.81 10^6/uL (4.1-5.3) 08/23/20 20:00 Hgb 14.4 g/dL (11.5-15.3) 08/23/20 20:00 Hct 44.3 % (37.0-47.0) 08/23/20 20:00 MCV 92.1 fL (81-99) 08/23/20 20:00 MCH 29.9 pg (28.0-34.0) 08/23/20 20:00 MCHC 32.5 g/dL (30.0-36.0) 08/23/20 20:00 RDW 13.2 % (12.1-15.1) 08/23/20 20:00 Plt Count 291 10^3/cmm (130-400) 08/23/20 20:00 MPV 10.8 fL (7.4-10.4) H 08/23/20 20:00 Neut % (Auto) 46.3 % 08/23/20 20:00 Lymph % (Auto) 38.9 % 08/23/20 20:00 [place] % (Auto) 11.1 % 08/23/20 20:00 Eos % (Auto) 2.5 % 08/23/20 20:00 Baso % (Auto) 1.0 % 08/23/20 20:00 Neut # (Auto) 4.95 10^3/uL (1.8-7.7) 08/23/20 20:00 Lymph # (Auto) 4.2 10^3/uL (0.8-4.8) 08/23/20 20:00 [place] # (Auto) 1.2 10^3/uL (0.2-0.9) H 08/23/20 20:00 Eos # (Auto) 0.3 10^3/uL (0.0-0.8) 08/23/20 20:00 Baso # (Auto) 0.1 10^3/uL (0.0-0.1) 08/23/20 20:00 Nucleated RBC % (auto) 0 % 08/23/20 20:00 Nucleated RBCs # 0.0 /100WBC 08/23/20 20:00 PT 12.60 SECONDS (12.1-14.9) 08/23/20 20:00 INR 0.92 (0.8-1.2) 08/23/20 20:00 Sodium 140 mmol/L (136-145) 08/23/20 20:00 Potassium 4.1 mmol/L (3.5-5.1) 08/23/20 20:00 Chloride 104 mmol/L (98-107) 08/23/20 20:00 Carbon Dioxide 27 mmol/L (22-29) 08/23/20 20:00 Anion Gap 13.1 (5-19) 08/23/20 20:00 BUN 17 mg/dL (8-23) 08/23/20 20:00 Creatinine 1.2 mg/dL (0.5-0.9) H 08/23/20 20:00 GFR Calculation 45.1 mL/min (90-130) L 08/23/20 20:00 Glucose 74 mg/dL (65-115) 08/23/20 20:00 Calculated Osmolality 290 mOsm/kg (285-295) 08/23/20 20:00 Calcium 8.9 mg/dL (8.5-10.5) 08/23/20 20:00 Total Bilirubin 0.2 mg/dL (0.15-1.2) 08/23/20 20:00 AST 14 U/L (0-32) 08/23/20 20:00 ALT 11 U/L (0-33) 08/23/20 20:00 Alkaline Phosphatase 76 IU/L (35-105) 08/23/20 20:00 Troponin T Baseline 8 ng/L (0-10) 08/23/20 20:00 Troponin T 120 Minute 8.63 ng/L (0-10) 08/23/20 21:47 Delta Troponin T 0.63 ABS# (0-10) 08/23/20 21:47 Total Protein 7.1 g/dL (6.6-8.7) 08/23/20 20:00 Albumin 4.2 g/dL (3.5-5.2) 08/23/20 20:00 Globulin 2.9 g/dL (1.3-4.6) 08/23/20 20:00 Impressions Chest X-Ray 08/23/20 19:56 IMPRESSION: No acute finding. Head/Neck CTA 08/23/20 19:56 IMPRESSION: 1. 50% segmental narrowing of the proximal right common carotid artery is most likely atherosclerotic plaque. A small dissection cannot be entirely excluded. 2. No internal carotid artery stenosis. 3. Kinking and mild narrowing of the proximal left vertebral artery. COMMENTS: Consistent with the [place] [employer]'s Incidental Findings Committee white paper (J Am Chelsey Radiol 2015): In patients aged 35 years and older with an incidental thyroid nodule equal to or greater than 1.[address], MRI or extrathyroidal US, further evaluation with dedicated thyroid US is recommended for patients with normal life expectancy and without comorbidities. For smaller nodules without suspicious features, no further evaluation or follow up is recommended. REFERENCES: NASCET CRITERIA. The degree of internal carotid artery stenosis is based on NASCET criteria. Normal is no stenosis. Mild is less than 50% stenosis. Moderate is 50-69% stenosis. Severe is 70% to 99% stenosis. Total occlusion is no detectable patent lumen. Radiation Dose CTDIVOL = (mGy): DLP = 2283.23~2283.23 (mGy-cm) Head CT 08/23/20 20:12 IMPRESSION: 1. Stable CT head. No acute findings. 2. Mild microangiopathy and chronic lacunar infarcts. Radiation Dose CTDIVOL = (mGy): DLP = 803.02 (mGy-cm) A&P Additional A&P Information 64-year-old female with past medical history of untreated hypertension who presents with complaints of generalized weakness, headache, nausea, slurred speech, and facial droop. The patient is found to have blood pressure reaching 270. Symptoms have resolved with correction of the blood pressure. Dr. Salcedo was called and will see the patient in the morning. Hypertensive encephalopathy. Now resolved. At this time will maintain her blood pressure at 160 180 range. The patient will be seen by Dr. Salcedo in the morning. Hypertensive emergency. We will start the patient on metoprolol and lisinopril. Will order as needed Vasotec. Possible hyperlipidemia. We will check her fasting lipids in the morning. We will continue Lipitor which was ordered earlier today by ER. DVT prophylaxis. Teds and SCDs. No anticoagulation due to hypertensive emergency and risk of intracranial bleeding. Tobacco abuse. Counseling is provided. She verbalized understanding. CODE STATUS. She wants to be full code. The plan of care was discussed with the patient. She verbalized agreement with the plan of care. Attestations Medical Necessity Statement*: Observation ..... Coding Level of Care Code Acute Optical Lab Technician for Brian Francois
[2020-08-23 22:46] VITALS: BP 168/88; PULSE 91; RESP 22; TEMP 36.5; O2SAT 97
[2020-08-23] MEDS: acetaminophen 325 mg Tablet 650 MG PO (23:38)
[2020-08-24] VITALS (13 sets, daily range): BP systolic 146–210; BP diastolic 65–106; PULSE 65–79; RESP 14–28; TEMP 36.4–36.8; O2SAT 93–96
--- NOTE | 2020-08-24 01:58 | ECG_ITS ---
[facility] Test Date: 2020-08-24 Pat Name: Arianne Daugherty Department: Room: 107 Gender: Female Program Manager Environmental Planning: : 1955 Requested By: Miya Minor Order Number: [id number] Erica MD: Thomas Kebede M.D. Measurements Intervals [place] Rate: 74 P: 45 IN: 184 QRS: 9 QRSD: 89 T: 73 QT: 408 QTc: 455 Interpretive Statements SINUS RHYTHM NONSPECIFIC T-WAVE ABNORMALITY Compared to ECG 08/23/2020 21:59:38 No significant changes Electronically Signed On 08-25-2020 23:59:06 CDT by Thomas Kebede M.D. [email or web address] [email or web address] clinic [email or web address] [email or web address], [email or web address]/store/[id number]
[2020-08-24 03:37] LABS: Basophils # 0.1 10^3/uL (0.0-0.1); Basophils % 0.8 %; Eosinophils # 0.2 10^3/uL (0.0-0.8); Eosinophils % 2.1 %; Hematocrit 39.5 % (37.0-47.0); Hemoglobin 12.4 g/dL (11.5-15.3); Lymphocytes # 3.3 10^3/uL (0.8-4.8); Lymphocytes % 32.2 %; Mean Corpuscular HGB Conc 31.4 g/dL (30.0-36.0); Mean Corpuscular Hemoglobin 29.7 pg (28.0-34.0); Mean Corpuscular Volume 94.5 fL (81-99); Mean Platelet Volume 11.1 fL (7.4-10.4); Monocytes # 1.1 10^3/uL (0.2-0.9); Monocytes % 10.4 %; Neutrophils # 5.62 10^3/uL (1.8-7.7); Neutrophils % 54.3 %; Nucleated Red Blood Cells % 0 %; Platelet Count 251 10^3/cmm (130-400); Red Blood Count 4.18 10^6/uL (4.1-5.3); Red Cell Distribution Width 13.5 % (12.1-15.1); White Blood Count 10.4 10^3/uL (4.0-10.0)
[2020-08-24 04:06] LABS: Chol HDL Ratio 4.04 mg/dL (0.0-4.40); Cholesterol 186 mg/dL (0-200); HDL Cholesterol 46 mg/dL (60-100); LDL Cholesterol Calculated 119 mg/dL (50-129); LDL HDL Ratio 2.59 RATIO (0.00-3.22); Triglycerides 107 mg/dL (0-150)
[2020-08-24 04:15] LABS: Blood Urea Nitrogen 16 mg/dL (8-23); Calcium 8.5 mg/dL (8.5-10.5); Carbon Dioxide 24 mmol/L (22-29); Chloride 104 mmol/L (98-107); Glomerular Filtration Rate 49.8 mL/min (90-130); Glucose 98 mg/dL (65-115); Magnesium 2.1 mg/dL (1.7-2.3); Osmolality Calculated 287 mOsm/kg (285-295); Sodium 138 mmol/L (136-145); Thyroid Stimulating Hormone 3.57 uIU/mL (0.27-4.20)
[2020-08-24] MEDS: lisinopril 5 mg Tablet PO ×2 (08:23→17:00)
[2020-08-24] MEDS: atorvastatin 40 mg Tablet PO (08:23)
[2020-08-24] MEDS: metoprolol tartrate 25 mg Tablet PO (08:23)
[2020-08-24] MEDS: acetaminophen 325 mg Tablet 650 MG PO ×2 (08:56→16:59)
--- NOTE | 2020-08-24 10:16 | PC.CHAP ---
Pastoral Care Encounter/Spiritual Assessment Type of Contact [] Declined patient account analyst visit [] Patient/Family/Request visit [] Outpatient visit [] Follow-up visit [] Physician referral [] Code/Alert [x] Routine visit [] Staff referral [] Actively dying [] Patient sleeping [x] Family support [] [] Out of room [] Palliative care [] [] Receiving care in room [] Pre-surgical visit [] Trauma [] Long length of stay [] ICU visit [] Other: Relational/Emotional Strength [] Patient feels connected with others/family/visitors/staff [] Distress [] Loneliness/isolation [] Abandonment Spirituality of Patient [] Person of Jessie [] Attends Moravian of their Jessie [] Believes in Prayer [] Reads Bible or Adventist materials [] There are Spiritual issues to be addressed Flat Bed Operator Interventions [x] Prayer [x] Active listening [x] Non-anxious presence [x] Spiritual/emotional support [] Crisis/trauma care [] Spiritual counseling [] Bereavement support [] Provided bereavement packet [] Provided Bible/devotional materials [] Provided toy/stuffed animal, coloring book to patient or family member [] Provided Communion [] Anointing/[place] [] Salvation [x] Completed spiritual assessment [] Other: Impact on Illness or Injury [] Angry [] Fearful [] Anxious [] Often cries [] Exhaustion [] Unable to work [] Unable to attend mandaeism [] Unable to walk/stand [] Unable to read [] Unable to drive [] Unable to eat/drink [] Unable to sleep [] Unable to be with family [] Patient intubated [] Other: Summary patient has terrible headache.. blood pressure is still high.... Time spent with patient 15 min
--- NOTE | 2020-08-24 11:20 | MR_ITS ---
WS: [id number] MRI HEAD WITHOUT CONTRAST TECHNIQUE: Sagittal T1, T2 axial, T2 axial FLAIR, axial and coronal T1 images, axial susceptibility w eighted imaging, axial diffusion weighted images, and coronal T2 images were obtained. CLINICAL INFORMATION: TIA, slurred speech, facial drooping, dizziness, RAYA COMPARISON: CT August 23, 2020 and CTA August 23, 2020 FINDINGS: Tiny focus of restricted diffusion in the right frost radiata consistent with a tiny focus of acute ischemia. Increased diffusion signal in the right centrum semiovale appears to represent T2 shine thr ough. No other foci of acute ischemia. Moderate small vessel changes. Mild parenchymal volume loss. S mall vessel changes in the sarah. Normal posterior fossa. Normal vascular flow voids at the skull base . No extra-axial fluid collections. No evidence of mass or mass effect. Chronic lacunar infarcts in the caudate bilaterally and left lent iform nucleus. Paranasal sinuses and mastoid air cells are well aerated. Normal optic chiasm and pitu itary infundibulum. Mild symmetric atrophy temporal lobes and hippocampal formations. No hemosiderin on susceptibly weighted images. MR/MR head wo con* [id number] IMPRESSION: 1. Tiny focus of acute ischemia involving the right frost radiata in the tess ventricular white matter. This most likely represents a tiny acute lacunar infa rct 2. No other foci of restricted diffusion. 3. Moderate small vessel changes with mild parenchymal volume loss. 4. Chronic lacunar infarcts involving the caudate bilaterally and left lentifo rm nucleus. 5. Small vessel changes in the sarha. 6. Mild symmetric atrophy temporal lobes and hippocampal formations. 7. No hemosiderin on susceptibly weighted images. Notified Ren Felix MD at 08/24/2020 4:15 PM.
--- NOTE | 2020-08-24 11:24 | USCV_ITS ---
Arianne Daugherty Age: 64 Gender: F : 1955 Exam Date: 08/24/2020 13:38 Ordering Phys: Ren Felix MD Technologist: Lizz Don Exam Location: [facility] [place] Indication: HTN BP: 176 / 70 HR: 67 Rhythm: Sinus Technical Quality: Adequate MEASUREMENTS (Male / Female) Normal Values 2D ECHO LV Diastolic Diameter PLAX 3.5 cm 4.2 - 5.9 / 3.9 - 5.3 cm LV Systolic Diameter PLAX 2.0 cm IVS Diastolic Thickness 1.1 cm 0.6 - 1.0 / 0.6 - 0.9 cm IVS Systolic Thickness 1.4 cm LVPW Diastolic Thickness 1.5 cm 0.6 - 1.0 / 0.6 - 0.9 cm LVPW Systolic Thickness 2.0 cm RV Chamber Size 3.6 cm LVOT Diameter 2.0 cm LV Ejection Fraction 2D Teich 73.7 % LV Ejection Fraction MOD 2C 78.5 % LV Ejection Fraction 2C AL 79.8 % LA Diameter 3.1 cm LA Width 3.3 cm LA Height 5.2 cm RA Width 3.2 cm RA Height 4.5 cm Aorta at Sinotubular Diameter 2.5 cm M-MODE LV Diastolic Diameter MM 4.0 cm 4.2 - 5.9 / 3.9 - 5.3 cm LV Systolic Diameter MM 2.2 cm LV Ejection Fraction MM Teich 77.1 % IVS Diastolic Thickness MM 1.0 cm 0.6 - 1.0 / 0.6 - 0.9 cm IVS Systolic Thickness MM 1.4 cm LVPW Diastolic Thickness MM 1.5 cm 0.6 - 1.0 / 0.6 - 0.9 cm LVPW Systolic Thickness MM 1.8 cm Aortic Annulus Diameter 2.5 cm LA Ao Ratio MM 1.2 MV E Point Septal Separation 0.4 cm DOPPLER AV Peak Velocity 163.0 cm/s LVOT Peak Velocity 132.3 cm/s AV Area Cont Eq vti 3.1 cm squared AV Area Cont Eq pk 2.6 cm squared MV Area PHT 4.4 cm squared Mitral E to A Ratio 0.9 MV E' Velocity 49.5 cm/s Mitral E to MV E' Ratio 12.5 Mitral E to LV E' Lateral Ratio 11.7 Mitral E to LV E' Septal Ratio 13.6 TR Peak Velocity 260.3 cm/s TR Peak Gradient 27.1 mmHg Right Atrial Pressure 3.0 mmHg Pulmonary Artery Systolic Pressu 30.1 mmHg PV Peak Velocity 97.0 cm/s RV Acceleration Time 0.1 s RV Ejection Time 0.3 s RV AcT/ET 0.3 FINDINGS Left Ventricle Normal left ventricular size and systolic function, EF 77 %. Mild left ventricular hypertrophy. No regional wall motion abnormalities. Grade I/IV diastolic dysfunction (abnormal relaxation filling pattern), normal to mildly elevated filling pressures. Right Ventricle The right ventricle is normal in size and function. Right Atrium The right atrium is normal in size. Left Atrium Mildly increased left atrial size. Mitral Valve Thickened mitral valve. Aortic Valve No gross abnormalities noted Tricuspid Valve Trace tricuspid valve regurgitation. Estimated pulmonary artery peak systolic pressure 30 mmHg Pulmonic Valve Structurally normal pulmonic valve without significant stenosis. There is no pulmonic regurgitation. Pericardium Normal pericardium without effusion. Aorta Normal ascending aorta dimension. CONCLUSIONS Normal left ventricular size and systolic function, EF 77 %. Mild left ventricular hypertrophy. No regional wall motion abnormalities. Grade I/IV diastolic dysfunction (abnormal relaxation filling pattern), normal to mildly elevated filling pressures. Thickened mitral valve. Trace tricuspid valve regurgitation. Estimated pulmonary artery peak systolic pressure 30 mmHg. There is no pericardial effusion. No previous study is available for comparison. Dr Thomas Kebede MD [facility] (Electronically Signed) Final Date: 25 Aug 2020 01:25 S
--- NOTE | 2020-08-24 11:25 | P.PN_ITS ---
Subjective Subjective: Interval history: Admitted overnight. H&P and labs noted. Examination patient's at bedside. Patient seems overall anxious. Denies any nausea, vomiting, headache, slurring of speech, dizziness, weakness in any of her arms or legs or facial droop anymore. Complaining of headache which is generalized. Denies any neck pain. Blood pressure better than before. Examination 140 systolics. Vitals/I&O/Wt Last Vital Signs Temp 98.3 F 08/24/20 07:20 Pulse 72 08/24/20 07:20 Resp 14 08/24/20 07:20 BP 176/70 08/24/20 07:20 Pulse Ox 93 08/24/20 07:20 08/23/20 08/24/20 08/24/20 22:59 06:59 14:59 Intake Total 50 / 50 360 / 360 Output Total Balance 49 / 49 360 / 360 Weight last 48 hrs Weight 77.111 kg Physical Exam Narrative: EXAM NARRATIVE: Currently the patient is awake alert oriented. No acute distress. Mood and affect are appropriate. Responses are adequate. Skin is warm and dry. Moist mucous membranes. Normal speech. No dysarthria or aphasia. No facial asymmetry. Cranial nerves II through XII are grossly intact. Eyes PERRL, extraocular muscles are intact No focal deficits or sensory loss on neuro exam. Cerebellar tests are within normal limits. Neck is supple. No JVD Lungs clear to auscultation bilaterally no wheezes or crackles Heart S1, S2, regular Abdomen soft, nontender, bowel sounds are present Extremities no edema cyanosis or calf tenderness bilaterally Data : 08/24/20 03:05 08/24/20 03:05 A&P Assessment and plan (1) Hypertensive urgency: Status: Acute (2) TIA (transient ischemic attack): Status: Acute (3) Headache: Status: Acute (4) HLD (hyperlipidemia): Status: Acute (5) HTN (hypertension): Status: Acute Additional A&P Information 64-year-old female with past medical history of untreated hypertension who presents with complaints of generalized weakness, headache, nausea, slurred speech, and facial droop. The patient is found to have blood pressure reaching 270. Symptoms have resolved with correction of the blood pressure. Dr. Salcedo was called and will see the patient in the morning. Hypertesive Emergency: Target BP around 170 mmhg- 25% of presenting BP. Start patient on amlodipine 10 mg daily. Change metoprolol to carvedilol 12.5 mg twice daily. Continue lisinopril 5 mg twice daily. Will uptitrate medication accordingly. Hydralazine 10 mg IV every 6 hours as needed for systolic blood pressure more than 180. TIA: Can be hypertensive encephalopathy but cannot rule out stroke given the fact that patient has hyperlipidemia and uncontrolled hypertension. MRI brain. Continue atorvastatin 40 mg daily. Lipid panel appreciated. Check HbA1c. Check echocardiogram. Continue telemetry. Possible carotid dissection: As per CTA done last night. Confirmed with Dr. Paulson. He states it is unlikely but difficult to exclude. Plan will be to follow-up with an MRI to rule out any bleed and then repeat CTA tomorrow that will be 24 hours after the last contrast study to confirm. For now continue with aspirin, statin. Headache: Could be because of hypertensive nephropathy. Case discussed with Dr. Salcedo. Have advised to start patient on D.H.E. 45 protocol. Topamax 50 mg twice daily. Check iron panel, ferritin, TSH. SCDs for DVT prophylaxis. No pharmacological DVT prophylaxis to avoid possible bleed. Cardiac diet. Physical therapy eval. Change admission to inpatient because of continuous hypertensive emergency, possible carotid dissection. Attestations Medical Necessity Statement*: Hospitalization for management of continuous hypertensive emergency, possible carotid dissection as seen on CTA head and neck. Time Spent in Patient Care: Greater than 35 minutes (>than 50% of time spent in counselling and/or direct pt care on unit) . Coding Level of Care Code Acute Planer Off Bearer for g Fwd Diagnoses Hypertensive urgency I16.0 TIA (transient ischemic attack) G45.9 Headache R51.9 HLD (hyperlipidemia) E78.5 HTN (hypertension) I10
[2020-08-24 12:04] LABS: Iron 35 ug/dL (37-145); Percent Saturation 14.6 % (20-50); Total Iron Binding Capacity 239 mcg/dl; Unsaturated Iron Binding 204 ug/dL (112-347)
[2020-08-24] MEDS: amlodipine 10 mg Tablet PO (12:10)
[2020-08-24] MEDS: topiramate 25 mg Tablet 50 MG PO ×2 (12:13→16:59)
--- NOTE | 2020-08-24 14:25 | PC.NURSE ---
to mri via stretcher at this time
--- NOTE | 2020-08-24 14:25 | PC.NURSE ---
pt's headache has gradually relieved,as bp has come under control
--- NOTE | 2020-08-24 15:49 | PC.NURSE ---
return from mri at 1530.bp 182/96.anterior headache rated 4-5/10.bp 165/71 at 1544.states when bp goes up,my headache increases.dr moses notified
[2020-08-24] MEDS: aspirin 81 mg EC Tablet PO (16:43)
[2020-08-24] MEDS: hyDRALAzine 20 mg/mL INJ 1 mL 10 MG IVP ×2 (16:44→19:55)
[2020-08-24] MEDS: carvedilol 12.5 mg Tablet PO (16:55)
--- NOTE | 2020-08-24 17:40 | CTR_ITS ---
PROCEDURE INFORMATION: Exam: CT Head Without Contrast Exam date and time: 08/24/2020 6:17 PM Age: 64 years old Clinical indication: Weakness, facial; Patient HX: Left sided facial droop, high BP TECHNIQUE: Imaging protocol: Computed tomography of the head without contrast. Radiation optimization: All CT scans at this facility use at least one of these dose optimization techniques: automated exposure control; mA and/or kV adjustment per patient size (includes targeted exams where dose is matched to clinical indication); or iterative reconstruction. Other technique: STROKE PROTOCOL was implemented. COMPARISON: CT head wo con* [id number] 08/23/2020 8:19 PM RADIATION DOSE METRICS: Total DLP (mGy-cm): 841.37 FINDINGS: Brain: There is a focal hypodensity in the left lentiform nucleus suggesting a chronic lacunar infarct. There is hypoattenuation in the periventricular and subcortical white matter consistent with chronic microvascular disease. There is no acute intracranial hemorrhage. Cerebral ventricles: There is no significant ventricular dilation. The basal cisterns are unremarkable. Bones/joints: The calvarium is intact. Paranasal sinuses: The paranasal sinuses are clear. Mastoid air cells: The mastoid air cells are clear. Soft tissues: The visible extracranial soft tissues are unremarkable. CT/CT head wo con* [id number] IMPRESSION: 1. No acute findings. 2. Old lacunar infarct in the left lentiform nucleus. ASSESSMENT: ASPECTS ([place] Stroke Program Early CT Score) is 10. Radiation Dose CTDIVOL = (mGy): DLP = 841.37 (mGy-cm)
[2020-08-24] MEDS: ondansetron 2 mg/ML SDV 2 mL 4 MG IVP (17:59)
[2020-08-24] MEDS: LORazepam 2 mg/mL INJ 1 mL 0.5 MG IVP (18:00)
--- NOTE | 2020-08-24 19:29 | PC.NURSE ---
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
[2020-08-24 20:23] LABS: Glucose Point of Care 132 mg/dL (70-110)
[2020-08-24] MEDS: sodium chloride 0.9% 1,000 ML 999 ML (20:30)
--- NOTE | 2020-08-24 20:40 | PC.NURSE ---
Around 1919: Patient sedated, drowsy, responds easily to verbal commands. Disoriented to situation. 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 Resting in bed, spouse at bedside. Around 2009: Notified by patient spouse that patient needed assistance. Entered room, Patient on diaphoretic on bedside commode c/o nausea, dizziness, and feeling hot . Spouse stated the patient threw up when he transferred her to the [facility] [place]. Patient speech slurred, hypotensive (Manual B/P:90/50). Transferred patient to bed with JENAE Delcid. All Vitals retaken taken, all WDL. Notified Dr. Pineda, Hospitalist. Orders received to transfer patient to ICU.
[2020-08-25] VITALS (20 sets, daily range): BP systolic 140–196; BP diastolic 64–102; PULSE 64–85; RESP 12–25; TEMP 36.7–36.9; O2SAT 92–97
--- NOTE | 2020-08-25 00:15 | PC.NURSE ---
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 [id number] this nurse noticed improved speech pattern, patient reported no pain at this time, able to follow commands, at bedside
--- NOTE | 2020-08-25 01:26 | P.PN_ITS ---
Subjective Subjective: Interval history: I was asked by the nurse to see the patient due to hypotension at about 1930. The patient was just diagnosed with lacunar stroke confirmed by MRI performed at about 1600. The patient received lorazepam and hydralazine prior to the event. On evaluation the patient is very weak and unresponsive, does not follow instructions. Her blood pressure is at 80s. The skin is cold and diaphoretic. The is at the bedside. He reports that the patient tried to get out just prior to the event and felt very dizzy and lightheaded. The patient was put in Trendelenburg position. A bolus of NS was given. Blood pressure improved after fluids and the patient was transferred to ICU. Their follow-up blood pressure was at 160s range. On repeat evaluation the patient has slurry speech. Mild left-sided facial droop and left upper extremity 4 out of 5 weakness. I spoke with the who is still at the bedside in ICU. According to him this weakness has improved compared to before the hypotensive event. The patient denies any headache, confusion, nausea or vomiting. No chest pain. Medications: Reviewed: Yes Medication Review Details: 3Generic Name Dose Route Start Last Admin Trade Name Freq PRN Reason Stop Dose Admin Acetaminophen 650 mg 08/23/20 22:19 08/24/20 16:59 Acetaminophen 32 5 Mg Tablet PO 650 mg Q6H PRN Administration Mild/Mod Pain Or Temp >/= 101 Amlodipine Besylat e 10 mg 08/24/20 11:25 08/24/20 12:10 Amlodipine 10 Mg Tablet PO 10 mg DAILY THEA Administration Aspirin 81 mg 08/24/20 17:00 08/24/20 16:43 Aspirin 81 Mg Ec Tablet PO 81 mg DAILY THEA Administration Atorvastatin Calci um 40 mg 08/24/20 09:00 08/24/20 08:23 Atorvastatin 40 Mg Tablet PO 40 mg DAILY THEA Administration Carvedilol 12.5 mg 08/24/20 18:00 08/24/20 16:55 Carvedilol 12.5 Mg Tablet PO 12.5 mg BID THEA Administration Hydralazine HCl 10 mg 08/24/20 16:26 08/24/20 19:55 Hydralazine 20 M g/Ml Inj 1 Ml IVP 10 mg Q4H PRN Administration SBP more than 180 mmhg Lisinopril 5 mg 08/24/20 09:00 08/24/20 17:00 Lisinopril 5 Mg Tablet PO 5 mg BID THEA Administration Lorazepam 0.5 mg 08/24/20 17:53 08/24/20 18:00 Lorazepam 2 Mg/M l Inj 1 Ml IVP 0.5 mg NOW PRN Administration ANXIETY Ondansetron HCl 4 mg 08/23/20 22:19 08/24/20 17:59 Ondansetron 2 Mg /Ml Sdv 2 Ml IVP 4 mg Q6H PRN Administration vomiting, or N/V if npo Topiramate 50 mg 08/24/20 11:05 08/24/20 16:59 Topiramate 25 Mg Tablet PO 50 mg BID THEA Administration Vitals/I&O/Wt Last Vital Signs Temp 97.6 F 08/24/20 15:32 Pulse 78 08/24/20 17:35 Resp 28 H 08/24/20 17:35 BP 178/88 08/25/20 00:00 Pulse Ox 95 08/24/20 17:35 08/24/20 08/24/20 08/25/20 14:59 22:59 06:59 Intake Total 360 / 360 Balance 360 / 360 Weight last 48 hrs Weight 77.111 kg Data : 08/24/20 03:05 08/24/20 03:05 Other Labs: Laboratory Results WBC 10.4 10^3/uL (4.0-10.0) H 08/24/20 03:05 RBC 4.18 10^6/uL (4.1-5.3) 08/24/20 03:05 Hgb 12.4 g/dL (11.5-15.3) 08/24/20 03:05 Hct 39.5 % (37.0-47.0) 08/24/20 03:05 MCV 94.5 fL (81-99) 08/24/20 03:05 MCH 29.7 pg (28.0-34.0) 08/24/20 03:05 MCHC 31.4 g/dL (30.0-36.0) 08/24/20 03:05 RDW 13.5 % (12.1-15.1) 08/24/20 03:05 Plt Count 251 10^3/cmm (130-400) 08/24/20 03:05 MPV 11.1 fL (7.4-10.4) H 08/24/20 03:05 Neut % (Auto) 54.3 % 08/24/20 03:05 Lymph % (Auto) 32.2 % 08/24/20 03:05 [place] % (Auto) 10.4 % 08/24/20 03:05 Eos % (Auto) 2.1 % 08/24/20 03:05 Baso % (Auto) 0.8 % 08/24/20 03:05 Neut # (Auto) 5.62 10^3/uL (1.8-7.7) 08/24/20 03:05 Lymph # (Auto) 3.3 10^3/uL (0.8-4.8) 08/24/20 03:05 [place] # (Auto) 1.1 10^3/uL (0.2-0.9) H 08/24/20 03:05 Eos # (Auto) 0.2 10^3/uL (0.0-0.8) 08/24/20 03:05 Baso # (Auto) 0.1 10^3/uL (0.0-0.1) 08/24/20 03:05 Nucleated RBC % (auto) 0 % 08/24/20 03:05 Nucleated RBCs # 0.0 /100WBC 08/24/20 03:05 PT 12.60 SECONDS (12.1-14.9) 08/23/20 20:00 INR 0.92 (0.8-1.2) 08/23/20 20:00 Sodium 138 mmol/L (136-145) 08/24/20 03:05 Potassium 4.0 mmol/L (3.5-5.1) 08/24/20 03:05 Chloride 104 mmol/L (98-107) 08/24/20 03:05 Carbon Dioxide 24 mmol/L (22-29) 08/24/20 03:05 Anion Gap 14.0 (5-19) 08/24/20 03:05 BUN 16 mg/dL (8-23) 08/24/20 03:05 Creatinine 1.1 mg/dL (0.5-0.9) H 08/24/20 03:05 GFR Calculation 49.8 mL/min (90-130) L 08/24/20 03:05 Glucose 98 mg/dL (65-115) 08/24/20 03:05 POC Glucose 132 mg/dL (70-110) H 08/24/20 20:21 Calculated Osmolality 287 mOsm/kg (285-295) 08/24/20 03:05 Calcium 8.5 mg/dL (8.5-10.5) 08/24/20 03:05 Magnesium 2.1 mg/dL (1.7-2.3) 08/24/20 03:05 Iron 35 ug/dL (37-145) L 08/24/20 03:05 TIBC 239 mcg/dl 08/24/20 03:05 % Saturation 14.6 % (20-50) L 08/24/20 03:05 Unsat Iron Binding 204 ug/dL (112-347) 08/24/20 03:05 Total Bilirubin 0.2 mg/dL (0.15-1.2) 08/23/20 20:00 AST 14 U/L (0-32) 08/23/20 20:00 ALT 11 U/L (0-33) 08/23/20 20:00 Alkaline Phosphatase 76 IU/L (35-105) 08/23/20 20:00 Troponin T Baseline 8 ng/L (0-10) 08/23/20 20:00 Troponin T 120 Minute 8.63 ng/L (0-10) 08/23/20 21:47 Delta Troponin T 0.63 ABS# (0-10) 08/23/20 21:47 Troponin T Hi Sens 6Hr 6.00 ng/L (0-10) 08/24/20 03:05 Troponin T Hi Sens 6Hr Delta -2.00 ng/L (0-12) L 08/24/20 03:05 Total Protein 7.1 g/dL (6.6-8.7) 08/23/20 20:00 Albumin 4.2 g/dL (3.5-5.2) 08/23/20 20:00 Globulin 2.9 g/dL (1.3-4.6) 08/23/20 20:00 Triglycerides 107 mg/dL (0-150) 08/24/20 03:05 Cholesterol 186 mg/dL (0-200) 08/24/20 03:05 LDL Cholesterol, Calc 119 mg/dL (50-129) 08/24/20 03:05 HDL Cholesterol 46 mg/dL (60-100) L 08/24/20 03:05 LDL/HDL Ratio 2.59 RATIO (0.00-3.22) 08/24/20 03:05 Cholesterol/HDL Ratio 4.04 mg/dL (0.0-4.40) 08/24/20 03:05 TSH 3.57 uIU/mL (0.27-4.20) 08/24/20 03:05 Impressions Chest X-Ray 08/23/20 19:56 IMPRESSION: No acute finding. Head/Neck CTA 08/23/20 19:56 IMPRESSION: 1. 50% segmental narrowing of the proximal right common carotid artery is most likely atherosclerotic plaque. A small dissection cannot be entirely excluded. 2. No internal carotid artery stenosis. 3. Kinking and mild narrowing of the proximal left vertebral artery. COMMENTS: Consistent with the [employer]'s Incidental Findings Committee white paper (J Am Chelsey Radiol 2015): In patients aged 35 years and older with an incidental thyroid nodule equal to or greater than 1.[address], MRI or extrathyroidal US, further evaluation with dedicated thyroid US is recommended for patients with normal life expectancy and without comorbidities. For smaller nodules without suspicious features, no further evaluation or follow up is recommended. REFERENCES: NASCET CRITERIA. The degree of internal carotid artery stenosis is based on NASCET criteria. Normal is no stenosis. Mild is less than 50% stenosis. Moderate is 50-69% stenosis. Severe is 70% to 99% stenosis. Total occlusion is no detectable patent lumen. Radiation Dose CTDIVOL = (mGy): DLP = 2283.23~2283.23 (mGy-cm) Head MRI 08/24/20 11:20 IMPRESSION: 1. Tiny focus of acute ischemia involving the right frost radiata in the periventricular white matter. This most likely represents a tiny acute lacunar infarct 2. No other foci of restricted diffusion. 3. Moderate small vessel changes with mild parenchymal volume loss. 4. Chronic lacunar infarcts involving the caudate bilaterally and left lentiform nucleus. 5. Small vessel changes in the sarah. 6. Mild symmetric atrophy temporal lobes and hippocampal formations. 7. No hemosiderin on susceptibly weighted images. Notified Ren Felix MD at 08/24/2020 4:15 PM. A&P Additional A&P Information Acute hypotensive event/orthostatic hypotension. Currently stabilized. We will go ahead and hold her maintenance blood pressure medications. The patient is transferred to ICU. Discussed with the nurse. I asked him to call me if the blood pressure is above 180. We will make a clinical decision at that time. Will allow permissive hypertension due to CVA. Acute CVA. right frost radiata. Left-sided weakness according to the has improved. Slurry speech. Continue aspirin, Lipitor, permissive hypertension. Attestations Medical Necessity Statement*: 40 minutes are spent on this encounter. Coding Level of Care Code Acute Medical Claims Analyst for Brian Francois
[2020-08-25 05:07] LABS: Basophils # 0.1 10^3/uL (0.0-0.1); Basophils % 0.7 %; Eosinophils # 0.1 10^3/uL (0.0-0.8); Eosinophils % 0.9 %; Hematocrit 44.8 % (37.0-47.0); Hemoglobin 13.8 g/dL (11.5-15.3); Lymphocytes # 2.8 10^3/uL (0.8-4.8); Lymphocytes % 24.8 %; Mean Corpuscular HGB Conc 30.8 g/dL (30.0-36.0); Mean Corpuscular Hemoglobin 29.7 pg (28.0-34.0); Mean Corpuscular Volume 96.3 fL (81-99); Mean Platelet Volume 11.2 fL (7.4-10.4); Monocytes # 0.7 10^3/uL (0.2-0.9); Monocytes % 5.9 %; Neutrophils % 67.4 %; Nucleated Red Blood Cells % 0 %; Platelet Count 284 10^3/cmm (130-400); Red Blood Count 4.65 10^6/uL (4.1-5.3); Red Cell Distribution Width 13.6 % (12.1-15.1); White Blood Count 11.1 10^3/uL (4.0-10.0)
[2020-08-25 05:21] LABS: Alanine Aminotransferase 10 U/L (0-33); Albumin Level 3.9 g/dL (3.5-5.2); Alkaline Phosphatase 73 IU/L (35-105); Anion Gap 15.2 (5-19); Aspartate Amino Transferase 14 U/L (0-32); Blood Urea Nitrogen 19 mg/dL (8-23); Calcium 8.9 mg/dL (8.5-10.5); Carbon Dioxide 20 mmol/L (22-29); Chloride 106 mmol/L (98-107); Glomerular Filtration Rate 49.8 mL/min (90-130); Glucose 108 mg/dL (65-115); Osmolality Calculated 287 mOsm/kg (285-295); Potassium 4.2 mmol/L (3.5-5.1); Sodium 137 mmol/L (136-145); Total Bilirubin 0.4 mg/dL (0.15-1.2); Total Protein 6.9 g/dL (6.6-8.7)
--- NOTE | 2020-08-25 05:35 | PC.NURSE ---
Unable to scan patient at time of delivery of fluid bolus given around [address] Pineda's orders. See MAR.
[2020-08-25 05:49] LABS: Estmated Average Glucose 97
--- NOTE | 2020-08-25 07:00 | CT_ITS ---
WS: [id number] CTA HEAD AND NECK TECHNIQUE: Contrast enhanced CTA of the head and neck with coronal and sagittal reformatted images an d maximum intensity projection (MIP) images. NASCET criteria utilized. CLINICAL INFORMATION: HTN urgency, Possible right carotid dissection COMPARISON: CTA August 23, 2020 and MRI August 24, 2020 DLP: 2354.[address] scans at [facility] use at least one of these dose optimization techniques: automat ed exposure control; mA and/or kV adjustment per patient size (includes targeted exams where dose is matched to clinical indication); or iterative reconstruction. FINDINGS: Low-attenuation change in the right frost radiata extending into the right basal ganglia consistent with subacute ischemia. This is new or progressed compared to the MRI from yesterday. This measures a pproximately 10 mm in the right frost radiata/basal ganglia. RIGHT: Right common carotid artery is patent with a more normal appearance today. No dissection. No s ignificant right ICA stenosis. Tortuous right cervical ICA. ICA is patent to the skull base. No disse ction. LEFT: Left common carotid artery is patent. Normal carotid bulb and proximal ICA. Left ICA is patent to the skull base. No significant left ICA stenosis. Tortuous cervical ICA. INTRACRANIAL CTA: Codominant and patent vertebral arteries bilaterally. Basilar artery is patent. Nor mal vascularity to the CONSUMER ATTORNEY territory bilaterally. Both ICAs are patent at the skull base. Mild cavernous carotid calcification. Moderate to severe narr owing right supraclinoid ICA unchanged from previous. Hypoplastic right A1 segment. Normal anterior c ommunicating artery. Normal vascularity to the PAULO and MCA territories bilaterally. No flow-limiting stenosis. Stable thyroid nodules CT/CT angio headneck* [id number] IMPRESSION: 1. Progression of the ischemia seen on the recent MRI involving the right sonny na radiata and extending into the basal ganglia measuring approximately 10 mm w ith low-attenuation change. 2. Moderate/severe narrowing of the right supraclinoid ICA is stable in appear ance. Residual patent lumen measuring 1.5 mm. 3. No flow-limiting intracranial stenosis. Hypoplastic right A1 segment. 4. Right common carotid artery has a more normal appearance today. No evidence of dissection. No significant right ICA stenosis. 5. No significant left ICA stenosis. 6. Both vertebral arteries are patent. 7. No other significant changes from previous. Message left for Ren Felix MD at 08/25/2020 10:43 AM.
--- NOTE | 2020-08-25 08:46 | P.CONIM_ITS ---
Providers/Reason For Consult Consulting Physican/Specialty*: Ren Felix Reason for Consult*: Waxing and waning neurologic symptoms Requesting Physcian: Ren Felix Attending Physician: Ren Felix MD History of Present Illness History of Present Illness Arianne Daugherty is a 64 year old woman with recent problems with hypertension and migrainous headache. She came to the emergency department complaining of dizziness and slurred speech with elevated blood pressure. She had a normal neurologic exam when she came to the emergency department and felt that her symptoms had resolved. Her NIH stroke scale score was [address] scan of the head was negative. Her blood pressure was treated and she was sent home. She returned several hours later complaining that she was having trouble walking and her speech was slurred. In the emergency department she had a negative n eurologic exam with stroke scale score of 0, and CT scan of the head once again showed nonspecific white matter changes. Dr. Minor called me about the patient and we discussed that it would be better, in view of the neurologic symptoms, to be cautious about dropping the blood pressure. CT angiogram showed 50% narrowing of the proximal right common carotid and the radiologist could not rule out a dissection. I discussed with Dr. Minor that the patient should be treated as a stroke with antiplatelet therapy, atorvastatin and gentle blood pressure management. I talked with Dr. Omalley yesterday as the patient was still complaining of headache and her blood pressure was elevated. I recommended D.H.E. [facility] protocol. I was called last evening stat for stroke alert because the patient had markedly elevated blood pressure with a severe headache. She was anxious and diaphoretic. She had mild dysarthria. Repeat CT scan of the head showed no changes. Brain MRI yesterday showed a tiny punctate region of ischemia in the subcortical right frost radiata. There was an old lacunar in the left internal capsule and multiple chronic white matter changes consistent with her history of smoking and migraine. She got up to the bathroom about 9:00 last night after receiving hydralazine and lorazepam. Her blood pressure dropped to 80. She was pale. She received a bolus of normal saline was transferred to ICU. Her reports that she is much better today than she was yesterday. Review of Systems Const: Reports: body aches and fatigue; Denies: fever(s) or chills Eyes: Reports: photophobia; Denies: change in vision Card: Denies: chest pain or palpitations Resp: Denies: dyspnea GI: Denies: abdominal pain or nausea : Denies: flank pain or urinary frequency Musc: Reports: neck pain Neuro: Reports: headache(s), weakness in extremities, lack of coordination, difficulty walking and dizziness; Denies: sensory changes Psych: Reports: anxiety; Denies: depression Seb/Lymph: Denies: easy bruising Meds/Allergies Home Medications and Allergies Home Medications Medication Instructions Recorded Confirmed Last Taken Type atorvastatin [Lipitor] 40 mg PO DAILY #30 tab 08/23/20 08/23/20 08/23/20 Rx diphenhydramine-acetaminophen 1 tab PO BEDTIME 08/23/20 08/23/20 1 Day Ago History [Tylenol PM Extra Strength] ~08/22/20 lisinopril 10 mg PO DAILY #30 tab 08/23/20 08/23/20 08/23/20 Rx Allergies Allergy/AdvReac Type Severity Reaction Status Date / Time codeine Allergy Unknown Verified 08/23/20 22:42 ibuprofen Allergy Unknown Verified 08/23/20 22:42 Penicillins Allergy Unknown Verified 08/23/20 22:42 oral antibiotics Allergy Unknown Uncoded 08/23/20 12:44 Current Medications Current Medications Generic Name Dose Route Start Last Admin Trade Name Freq PRN Reason Stop Dose Admin Acetaminophen 650 mg 08/23/20 22:19 08/24/20 16:59 Acetaminophen 325 Mg Tablet PO 650 mg Q6H PRN Administration Mild/Mod Pain Or Temp >/= 101 Aspirin 81 mg 08/24/20 17:00 08/24/20 16:43 Aspirin 81 Mg Ec Tablet PO 81 mg DAILY THEA Administration Atorvastatin Calcium 40 mg 08/24/20 09:00 08/24/20 08:23 Atorvastatin 40 Mg Tablet PO 40 mg DAILY THEA Administration Ondansetron HCl 4 mg 08/23/20 22:19 08/24/20 17:59 Ondansetron 2 Mg/Ml Sdv 2 Ml IVP 4 mg Q6H PRN Administration vomiting, or N/V if npo Topiramate 50 mg 08/24/20 11:05 08/24/20 16:59 Topiramate 25 Mg Tablet PO 50 mg BID THEA Administration PFSH Acute PFSH: Medical History HLD (hyperlipidemia) HTN (hypertension) Vitals/I&O/Wt Last Vital Signs Temp 97.6 F 08/24/20 15:32 Pulse 66 08/25/20 07:01 Resp 19 H 08/25/20 04:00 BP 161/80 08/25/20 04:00 Pulse Ox 92 08/25/20 04:00 08/24/20 08/25/20 08/25/20 22:59 06:59 14:59 Intake Total 482.85 / 842.85 Output Total 450 / 450 Balance 482.85 / 842.85 -450 / 392.85 Weight last 48 hrs Weight 170 lb Physical Exam Narrative: EXAM NARRATIVE: GENERAL: The patient was overweight with short stature and appropriately groomed in hospital attire. MENTAL STATUS: She has a left gaze preference. Orientation was full to 10 of 10 questions of orientation. Speech was moderately dysarthric but easily intelligible. No difficulty following a complex command. The affect was euthymic. CRANIAL NERVES: Visual hidalgo were full to confrontation, direct and consensual. Extraocular movements were full without nystagmus. Eye movements somewhat ratchety. PERRLA. Face was flat on the left. Facial sensation was intact in all three distributions of the fifth cranial nerve bilaterally to touch. Hearing was intact to soft spoken voice. Guttural and lingual movements slow. Shoulders were symmetric at rest and with shoulder shrug. MOTOR: There was no drift of the extended arms. Fine movements in the hands were rapid and symmetric. Toe tapping was rapid and symmetric. Power was 5/5 in all the muscles of all four extremities tested individually. Bulk and tone were normal. There was no atrophy. No fasciculations were seen. SENSATION: No subjective change in pin and touch on the right side compared to the left COORDINATION: No specific cerebellar findings. DEEP TENDON REFLEXES: Toes upgoing bilaterally GAIT: Not tested HEENT: Normocephalic without dysmorphic features. Conjunctivae were not injected and sclerae were nonicteric. Temporal artery pulses were strong bilaterally and the arteries were nontender. NECK: Carotid upstroke was strong bilaterally without bruits. CHEST: Clear to auscultation. CARDIOVASCULAR: The heart sounds were normal without murmur or gallop. Regular rate and rhythm. EXTREMITIES: Short stature. No deformities. A&P Assessment and plan (1) Acute right arterial ischemic stroke, middle cerebral artery (MCA): 64-year-old woman with multiple risk factors for stroke including smoking and hypertension [id number] who presents with status migrainosus and findings that suggest a right middle cerebral artery stroke. She has a suspicious region in the proximal right carotid artery that looks like a dissection. Efforts have been made to keep her blood pressure within a mild hypertensive range without overshooting. She is to have repeat CT angiogram t his morning to look for any progression of the potential dissection in the right carotid artery. Recommendations for treatment of carotid dissection, it is extracranial, have shown no difference between antiplatelet therapy and anticoagulation, a trend toward increasing hemorrhages in the anticoagulation group. There is no consensus on appropriate treatment. If there is progression of her dissection we could talk with a higher level of care about whether she would be a candidate for stenting. Continued cautious management of blood pressure is advised, as autoregulation is disturbed in the setting of acute ischemic stroke. Status: Acute (2) Hypertensive urgency: Status: Acute (3) Status migrainosus: Her headache is much better today and so is her neurologic state. Continue to use morphine as needed since all other options failed and it would be reasonable to start her on Topamax 50 mg twice a day. There is a big disconnect between her examination and her findings on MRI which could imply that some of her symptoms are migrainous. Status: Acute Coding Level of Care Code Acute Nuts And Bolts Assembler for Brian Francois Diagnoses Acute right arterial ischemic stroke, middle cerebral artery (MCA) I63.511 Hypertensive urgency I16.0 Status migrainosus G43.901
--- NOTE | 2020-08-25 08:47 | PC.CHAP ---
Pastoral Care Encounter/Spiritual Assessment Type of Contact [] Declined patient navigator visit [] Patient/Family/Request visit [] Outpatient visit [] Follow-up visit [] Physician referral [] Code/Alert [x] Routine visit [] Staff referral [] Actively dying [] Patient sleeping [x] Family support [] [] Out of room [] Palliative care [] [] Receiving care in room [] Pre-surgical visit [] Trauma [] Long length of stay [x] ICU visit [x] Other: moved from cardiac unit to ICU lst night... blood pressure dropped Relational/Emotional Strength [] Patient feels connected with others/family/visitors/staff [] Distress [] Loneliness/isolation [] Abandonment Spirituality of Patient [x] Person of Jessie [] Attends Sikh of their Jessie [] Believes in Prayer [] Reads Bible or Quaker materials [] There are Spiritual issues to be addressed A And P Technician Interventions [x] Prayer [x] Active listening [x] Non-anxious presence []x Spiritual/emotional support [] Crisis/trauma care [] Spiritual counseling [] Bereavement support [] Provided bereavement packet [] Provided Bible/devotional materials [] Provided toy/stuffed animal, coloring book to patient or family member [] Provided Communion [] Anointing/[place] [] Salvation [x] Completed spiritual assessment [] Other: Impact on Illness or Injury [] Angry [] Fearful [] Anxious [] Often cries [] Exhaustion [] Unable to work [] Unable to attend baptist [] Unable to walk/stand [] Unable to read [] Unable to drive [] Unable to eat/drink [] Unable to sleep [] Unable to be with family [] Patient intubated [] Other: Summary setting well... blood pressure seems stable.. spouse present... Time spent with patient 10 min
[2020-08-25] MEDS: aspirin 81 mg EC Tablet PO (08:57)
[2020-08-25] MEDS: atorvastatin 40 mg Tablet PO (08:57)
[2020-08-25] MEDS: topiramate 25 mg Tablet 50 MG PO ×2 (08:57→17:26)
[2020-08-25] MEDS: iodixanol 320 mg/mL 100mL Btl IV (09:50)
--- NOTE | 2020-08-25 10:32 | P.PN_ITS ---
Subjective Subjective: Interval history: Patient had hypotension for which she was moved to the ICU after giving 1 L bolus IV fluid. After that blood pressures became better. She had symptoms of slurred speech, facial droop, weakness in arms and legs which resolved a little bit but have remained persistent since then. Patient denies any headache anymore. Denies any nausea or vomiting. Medications: Reviewed: Yes Vitals/I&O/Wt Last Vital Signs Temp 97.6 F 08/24/20 15:32 Pulse 66 08/25/20 07:01 Resp 19 H 08/25/20 04:00 BP 161/80 08/25/20 04:00 Pulse Ox 92 08/25/20 04:00 08/24/20 08/25/20 08/25/20 22:59 06:59 14:59 Intake Total 482.85 / 842.85 Output Total 450 / 450 Balance 482.85 / 842.85 -450 / 392.85 Weight last 48 hrs Weight 77.111 kg Physical Exam Narrative: EXAM NARRATIVE: General: No acute distress, AO x3 HEENT: PERRLA, pupils bilaterally equal and reactive Chest: Normal vesicular breath sounds, no added sounds, equal good air entry bilaterally CVS: S1-S2 regular, no murmurs, no tachycardia, no gallops, no rubs Abdomen: Soft, nontender, no organomegaly, bowel sounds present Neuro: Facial droop present, AO x3, Visual hidalgo were full to confrontation, direct and consensual. Extraocular movements were full without nystagmus. Eye movements somewhat ratchety. PERRLA. Face was flat on the left. Facial sensation was intact in all three distributions of the fifth cranial nerve bilaterally to touch. Hearing was intact to soft spoken voice. Guttural and lingual movements slow. Shoulders were symmetric at rest and with shoulder shrug. MOTOR: There was no drift of the extended arms. Fine movements in the hands were rapid and symmetric. Toe tapping was rapid and symmetric. Power was 5/5 in all the muscles of all four extremities tested individually. Bulk and tone were normal. There was no atrophy. No fasciculations were seen. Data : 08/25/20 04:25 08/25/20 04:25 A&P Assessment and plan (1) Acute right arterial ischemic stroke, middle cerebral artery (MCA): Status: Acute (2) Status migrainosus: Status: Acute (3) Hypertensive urgency: Status: Acute (4) TIA (transient ischemic attack): Status: Acute (5) Headache: Status: Acute (6) HLD (hyperlipidemia): Status: Acute (7) HTN (hypertension): Status: Acute Additional A&P Information 64-year-old female with past medical history of untreated hypertension who presents with complaints of generalized weakness, headache, nausea, slurred speech, and facial droop. The patient is found to have blood pressure reaching 270. Symptoms have resolved with correction of the blood pressure. Dr. Salcedo was called and will see the patient in the morning. Right MCA stroke: Progressive changes on the CTA done today as compared to MRI yesterday. Appreciate Dr. Salcedo's recommendations. Permissive hypertension.We will treat if blood pressures go over 200 mmHg. Aspirin, Plavix, statin. Physical therapy, Occupational Therapy, speech therapy. Echocardiogram shows an EF of 77% with grade 1 diastolic dysfunction, mild LVH, thickened mitral valve. Patient will most likely need an event monitor and JAYSHREE as an outpatient. Hypertension: Most likely patient has had uncontrolled hypertension for a long time. Once the acute stage is gone patient will need a tighter blood pressure monitoring. Patient would benefit from lisinopril 10 mg, carvedilol 6.25 mg twice daily with up titration as an outpatient once. Of permissive hypertension is gone. Carotid dissection: Ruled out on repeat CTA. Headache: Continue with Topamax as recommended by Dr. Salcedo. Move to CSU for further monitoring. Oral iron supplementation for iron deficiency anemia. TSH, lipid panel, A1c results appreciated. Lovenox for DVT prophylaxis. Cardiac diet. Famotidine for PUD prophylaxis. Attestations Medical Necessity Statement*: Patient requires further hospitalization for progressive right MCA stroke, tighter blood pressure monitoring. Time Spent in Patient Care: Greater than 35 minutes (>than 50% of time spent in counselling and/or direct pt care on unit) . Coding Level of Care Code Acute Truck Guard for Brian Francois Diagnoses Acute right arterial ischemic stroke, middle cerebral artery (MCA) I63.511 Status migrainosus G43.901 Hypertensive urgency I16.0 TIA (transient ischemic attack) G45.9 Headache R51.9 HLD (hyperlipidemia) E78.5 HTN (hypertension) I10
[2020-08-25] MEDS: clopidogrel 75 mg Tablet PO (11:29)
[2020-08-25] MEDS: aspirin 81 mg EC Tablet 162 MG PO (11:29)
[2020-08-25] MEDS: enoxaparin 40 mg/0.4 mL Syringe SUBCUT (11:29)
--- NOTE | 2020-08-25 16:18 | PC.RESP ---
SMOKING CESSATION INFORMATION SENT TO PATIENT.
[2020-08-25] MEDS: famotidine 20 mg Tablet PO (17:26)
[2020-08-26 03:13] VITALS: BP 216/94; PULSE 81; RESP 15; TEMP 36.7; O2SAT 98
--- NOTE | 2020-08-26 03:24 | PC.NURSE ---
Spoke with Dr. Pineda regarding this patient's HTN 218/93. Received order for Hydralazine see
[2020-08-26] MEDS: hyDRALAzine 20 mg/mL INJ 1 mL 5 MG IVP (03:31)
[2020-08-26 03:55] LABS: Basophils # 0.1 10^3/uL (0.0-0.1); Basophils % 0.9 %; Eosinophils # 0.3 10^3/uL (0.0-0.8); Hematocrit 42.7 % (37.0-47.0); Hemoglobin 13.5 g/dL (11.5-15.3); Lymphocytes # 4.2 10^3/uL (0.8-4.8); Lymphocytes % 44.9 %; Mean Corpuscular HGB Conc 31.6 g/dL (30.0-36.0); Mean Corpuscular Hemoglobin 29.7 pg (28.0-34.0); Mean Corpuscular Volume 94.1 fL (81-99); Mean Platelet Volume 11.2 fL (7.4-10.4); Monocytes # 0.8 10^3/uL (0.2-0.9); Monocytes % 8.4 %; Neutrophils # 3.94 10^3/uL (1.8-7.7); Neutrophils % 42.6 %; Nucleated Red Blood Cells % 0 %; Platelet Count 287 10^3/cmm (130-400); Red Blood Count 4.54 10^6/uL (4.1-5.3); Red Cell Distribution Width 13.4 % (12.1-15.1); White Blood Count 9.3 10^3/uL (4.0-10.0)
[2020-08-26 04:29] LABS: Alanine Aminotransferase 9 U/L (0-33); Albumin Level 3.8 g/dL (3.5-5.2); Alkaline Phosphatase 70 IU/L (35-105); Anion Gap 15.7 (5-19); Aspartate Amino Transferase 14 U/L (0-32); Blood Urea Nitrogen 17 mg/dL (8-23); Calcium 8.9 mg/dL (8.5-10.5); Carbon Dioxide 20 mmol/L (22-29); Chloride 108 mmol/L (98-107); Glucose 80 mg/dL (65-115); Osmolality Calculated 291 mOsm/kg (285-295); Potassium 3.7 mmol/L (3.5-5.1); Sodium 140 mmol/L (136-145); Total Bilirubin 0.5 mg/dL (0.15-1.2); Total Protein 6.8 g/dL (6.6-8.7)
[2020-08-26 06:11] VITALS: PULSE 89
[2020-08-26 07:29] VITALS: BP 179/81; PULSE 75; RESP 19; TEMP 36.8; O2SAT 97
[2020-08-26] MEDS: topiramate 25 mg Tablet 50 MG PO (08:44)
[2020-08-26] MEDS: aspirin 81 mg EC Tablet PO (08:45)
[2020-08-26] MEDS: clopidogrel 75 mg Tablet PO (08:45)
[2020-08-26] MEDS: atorvastatin 40 mg Tablet PO (08:45)
[2020-08-26] MEDS: famotidine 20 mg Tablet PO (08:45)
--- NOTE | 2020-08-26 11:07 | PM.DCS ---
Discharge Providers Date of Admission: 08/24/20 11:20 Date of Discharge: August 26, 2020 Attending Provider at Admission: Raul Pineda Attending Provider at Discharge: Ren Felix MD Consults: Neurology: Dr. Salcedo Diagnoses at Discharge Discharge Diagnosis (1) Acute right arterial ischemic stroke, middle cerebral artery (MCA): Status: Acute (2) Status migrainosus: Status: Acute (3) Hypertensive urgency: Status: Acute (4) TIA (transient ischemic attack): Status: Acute (5) Headache: Status: Acute (6) HLD (hyperlipidemia): Status: Acute (7) HTN (hypertension): Status: Acute Reason for Visit Reason for Visit: RAYA Hospital Course Hospital Course Arianne Daugherty is a 64 year old female with past medical history of hypertension, not treated currently who was initially seen in the emergency room this morning with complaints of headache, slurred speech, nausea, and facial droop. Blood pressure was above 200 at that time. After stabilization of the blood pressure her symptoms resolved and the patient was discharged with prescription for lisinopril and Lipitor home. However her symptoms started again later in the evening and the patient presented to emergency room. This time her blood pressure was in 260-270 range. 2 doses of labetalol were given and most of the symptoms have resolved. Currently she describes mild to moderate headache. CT in the morning and this evening showed no acute abnormalities. She has chronic microvascular changes described. Dr. Salcedo was contacted by ER physician. Patient was admitted to the hospital for further management. At first it was thought that patient's symptoms are most likely because of hypertensive urgency. She was treated by oral antihypertensives with goal blood pressures of 20 to 25% of her presenting blood pressures. CTA done on the admission was suspicious for possible right common carotid small dissection. MRI was done which was consistent with lacunar infarct. Her hospital stay was complicated by developing further neurological symptoms for which repeat CTA was done which was consistent with progressive right MCA infarct but ruled out common carotid dissection. She was treated with permissible hypertension and once out of window antihypertensives were adjusted. Patient was seen by physical therapy, social welfare administrator, occupational and speech therapy. She is been discharged with home health for further rehabitation on oral antihypertensives. Family and patient has been counseled in detail regarding proper medication and blood pressure monitoring at home while she would maintain a blood pressure diary and foot follow-up with her primary care provider on the same date for further adjustment of antihypertensives and follow-up with Dr. Salcedo in 2 weeks. Medications have been provided to her at bedside. Walker has been ordered for her as per physical therapy recommendations. Physical Exam Narrative: EXAM NARRATIVE: General: No acute distress, AO x3 HEENT: PERRLA, pupils bilaterally equal and reactive Chest: Normal vesicular breath sounds, no added sounds, equal good air entry bilaterally CVS: S1-S2 regular, no murmurs, no tachycardia, no gallops, no rubs Abdomen: Soft, nontender, no organomegaly, bowel sounds present Neuro: Facial droop present, AO x3, Visual h[place] were full to confrontation, direct and consensual. Extraocular movements were full without nystagmus. Eye movements somewhat ratchety. PERRLA. Face was flat on the left. Facial sensation was intact in all three distributions of the fifth cranial nerve bilaterally to touch. Hearing was intact to soft spoken voice. Guttural and lingual movements slow. Shoulders were symmetric at rest and with shoulder shrug. MOTOR: There was no drift of the extended arms. Fine movements in the hands were rapid and symmetric. Toe tapping was rapid and symmetric. Power was 5/5 in all the muscles of all four extremities tested individually. Bulk and tone were normal. There was no atrophy. No fasciculations were seen. Discharge Data Data Completed and Pending: Completed Studies During Hospitalization Category Date Time Status CT angio headneck * [id number] Rout ine Cat Scan 08/25/20 07:[address] angio headneck * [id number] Urge nt Cat Scan 08/23/20 19:[address] head wo con* 7 0450 Stat Cat Scan 08/24/20 17:[address] head wo con* 7 0450 Urgent Cat Scan 08/23/20 20:12 Completed XR chest 1V emma ble [id number] Urgent Exams 08/23/20 19:56 Completed MR head wo con* 7 0551 Urgent MRI 08/24/20 11:20 Completed CV echo complete* [id number] Routine Ultrasound 08/24/20 11:24 Completed Pending at discharge Category Date Time Status MR head wo con* 7 0551 Urgent MRI 08/24/20 14:30 Unverified Labs from last 24 hours 08/26/20 08/26/20 03:15 03:15 WBC 9.3 RBC 4.54 Hgb 13.5 Hct 42.7 MCV 94.1 MCH 29.7 MCHC 31.6 RDW 13.4 Plt Count 287 MPV 11.2 H Neut % (Auto) 42.6 Lymph % (Auto) 44.9 [place] % (Auto) 8.4 Eos % (Auto) 3.0 Baso % (Auto) 0.9 Neut # (Auto) 3.94 Lymph # (Auto) 4.2 [place] # (Auto) 0.8 Eos # (Auto) 0.3 Baso # (Auto) 0.1 Nucleated RBC % (a uto) 0 Nucleated RBCs # 0.0 Sodium 140 Potassium 3.7 Chloride 108 H Carbon Dioxide 20 L Anion Gap 15.7 BUN 17 Creatinine 0.8 GFR Calculation 72.0 L Glucose 80 Calculated Osmolal ity 291 Calcium 8.9 Total Bilirubin 0.5 AST 14 ALT 9 Alkaline Phosphata se 70 Total Protein 6.8 Albumin 3.8 Globulin 3.0 Addt'l Data from Hospital Stay: Laboratory Results WBC 9.3 10^3/uL (4.0- 10.0) 08/26/20 03:15 RBC 4.54 10^6/uL (4.1 -5.3) 08/26/20 03:15 Hgb 13.5 g/dL (11.5-1 5.3) 08/26/20 03:15 Hct 42.7 % (37.0-47.0 ) 08/26/20 03:15 MCV 94.1 fL (81-99) 08/26/20 03:15 MCH 29.7 pg (28.0-34. 0) 08/26/20 03:15 MCHC 31.6 g/dL (30.0-3 6.0) 08/26/20 03:15 RDW 13.4 % (12.1-15.1 ) 08/26/20 03:15 Plt Count 287 10^3/cmm (130 -400) 08/26/20 03:15 MPV 11.2 fL (7.4-10.4 ) H 08/26/20 03:15 Neut % (Auto) 42.6 % 08/26/20 03:15 Lymph % (Auto) 44.9 % 08/26/20 03:15 [place] % (Auto) 8.4 % 08/26/20 03:15 Eos % (Auto) 3.0 % 08/26/20 03:15 Baso % (Auto) 0.9 % 08/26/20 03:15 Neut # (Auto) 3.94 10^3/uL (1.8 -7.7) 08/26/20 03:15 Lymph # (Auto) 4.2 10^3/uL (0.8- 4.8) 08/26/20 03:15 [place] # (Auto) 0.8 10^3/uL (0.2- 0.9) 08/26/20 03:15 Eos # (Auto) 0.3 10^3/uL (0.0- 0.8) 08/26/20 03:15 Baso # (Auto) 0.1 10^3/uL (0.0- 0.1) 08/26/20 03:15 Nucleated RBC % (a uto) 0 % 08/26/20 03:15 Nucleated RBCs # 0.0 /100WBC 08/26/20 03:15 PT 12.60 SECONDS (12 .1-14.9) 08/23/20 20:00 INR 0.92 (0.8-1.2) 08/23/20 20:00 Sodium 140 mmol/L (136-1 45) 08/26/20 03:15 Potassium 3.7 mmol/L (3.5-5 .1) 08/26/20 03:15 Chloride 108 mmol/L (98-10 7) H 08/26/20 03:15 Carbon Dioxide 20 mmol/L (22-29) L 08/26/20 03:15 Anion Gap 15.7 (5-19) 08/26/20 03:15 BUN 17 mg/dL (8-23) 08/26/20 03:15 Creatinine 0.8 mg/dL (0.5-0. 9) 08/26/20 03:15 GFR Calculation 72.0 mL/min (90-1 30) L 08/26/20 03:15 Glucose 80 mg/dL (65-115) 08/26/20 03:15 POC Glucose 132 mg/dL (70-110 ) H 08/24/20 20:21 Estimat Average Gl ucose 97 08/25/20 04:25 Hemoglobin A1c 5.0 % (4.0-6.0) 08/25/20 04:25 Calculated Osmolal ity 291 mOsm/kg (285- 295) 08/26/20 03:15 Calcium 8.9 mg/dL (8.5-10 .5) 08/26/20 03:15 Magnesium 2.1 mg/dL (1.7-2. 3) 08/24/20 03:05 Iron 35 ug/dL (37-145) L 08/24/20 03:05 TIBC 239 mcg/dl 08/24/20 03:05 % Saturation 14.6 % (20-50) L 08/24/20 03:05 Unsat Iron Binding 204 ug/dL (112-34 7) 08/24/20 03:05 Total Bilirubin 0.5 mg/dL (0.15-1 .2) 08/26/20 03:15 AST 14 U/L (0-32) 08/26/20 03:15 ALT 9 U/L (0-33) 08/26/20 03:15 Alkaline Phosphata se 70 IU/L (35-105) 08/26/20 03:15 Troponin T Baselin e 8 ng/L (0-10) 08/23/20 20:00 Troponin T 120 Min nome 8.63 ng/L (0-10) 08/23/20 21:47 Delta Troponin T 0.63 ABS# (0-10) 08/23/20 21:47 Troponin T Hi Sens 6Hr 6.00 ng/L (0-10) 08/24/20 03:05 Troponin T Hi Sens 6Hr Delta -2.00 ng/L (0-12) L 08/24/20 03:05 Total Protein 6.8 g/dL (6.6-8.7 ) 08/26/20 03:15 Albumin 3.8 g/dL (3.5-5.2 ) 08/26/20 03:15 Globulin 3.0 g/dL (1.3-4.6 ) 08/26/20 03:15 Triglycerides 107 mg/dL (0-150) 08/24/20 03:05 Cholesterol 186 mg/dL (0-200) 08/24/20 03:05 LDL Cholesterol, C alc 119 mg/dL (50-129 ) 08/24/20 03:05 HDL Cholesterol 46 mg/dL (60-100) L 08/24/20 03:05 LDL/HDL Ratio 2.59 RATIO (0.00- 3.22) 08/24/20 03:05 Cholesterol/HDL Ra kaylene 4.04 mg/dL (0.0-4 .40) 08/24/20 03:05 TSH 3.57 uIU/mL (0.27 -4.20) 08/24/20 03:05 Impressions Chest X-Ray 08/23/20 19:56 IMPRESSION: No acute finding. Head MRI 08/24/20 11:20 IMPRESSION: 1. Tiny focus of acute ischemia involving the right frost radiata in the periventricular white matter. This most likely represents a tiny acute lacunar infarct 2. No other foci of restricted diffusion. 3. Moderate small vessel changes with mild parenchymal volume loss. 4. Chronic lacunar infarcts involving the caudate bilaterally and left lentiform nucleus. 5. Small vessel changes in the sarah. 6. Mild symmetric atrophy temporal lobes and hippocampal formations. 7. No hemosiderin on susceptibly weighted images. Notified Ren Felix MD at 08/24/2020 4:[address] 08/24/20 17:40 IMPRESSION: 1. No acute findings. 2. Old lacunar infarct in the left lentiform nucleus. ASSESSMENT: ASPECTS (Rosa M Stroke Program Early CT Score) is 10. Radiation Dose CTDIVOL = (mGy): DLP = 841.37 (mGy-cm) ADDENDUM: 08/25/20 0709 THIS REPORT CONTAINS FINDINGS THAT MAY BE CRITICAL TO PATIENT CARE. The findings were verbally communicated via telephone conference with REN FELIX at 6:48 PM CDT on 08/24/2020. The findings were acknowledged and understood. Radiation Dose CTDIVOL = (mGy): DLP = 841.37 (mGy-cm) Head/Neck CTA 08/25/20 07:00 IMPRESSION: 1. Progression of the ischemia seen on the recent MRI involving the right frost radiata and extending into the basal ganglia measuring approximately 10 mm with low-attenuation change. 2. Moderate/severe narrowing of the right supraclinoid ICA is stable in appearance. Residual patent lumen measuring 1.5 mm. 3. No flow-limiting intracranial stenosis. Hypoplastic right A1 segment. 4. Right common carotid artery has a more normal appearance today. No evidence of dissection. No significant right ICA stenosis. 5. No significant left ICA stenosis. 6. Both vertebral arteries are patent. 7. No other significant changes from previous. Message left for Ren Felix MD at 08/25/2020 10:43 AM Vitals: Last Vital Signs Temp 98.2 F 08/26/20 07:29 Pulse 75 08/26/20 07:29 Resp 19 H 08/26/20 07:29 BP 179/81 08/26/20 07:29 Pulse Ox 97 08/26/20 07:29 Discharge Plan Discharge Patient Disposition: Home Health Service Condition: Stable Prescriptions: New topiramate 25 mg Tablet 50 mg PO BID 30 Days Qty: 120 RF: 0 clopidogrel 75 mg Tablet 75 mg PO DAILY Qty: 30 RF: 0 aspirin 81 mg Tablet,Delayed Release (Dr/Ec) 81 mg PO DAILY Qty: 30 RF: 0 famotidine 20 mg Tablet 20 mg PO BID Qty: 60 RF: 0 Coreg 6.25 mg tablet 6.25 mg PO BID Qty: 60 RF: 0 Continued Tylenol PM Extra Strength 25-500 mg Tablet 1 tab PO BEDTIME RF: 0 Lipitor 40 mg tablet 40 mg PO DAILY Qty: 30 RF: 0 lisinopril 10 mg tablet 10 mg PO DAILY Qty: 30 RF: 0 Discharge Orders: Discharge Order (Routine); Ordered 08/26/20 Ordered By: Ren Felix Other Ambulatory Orders: DME: Adeel (Order) Location: None Selected Ordered By: Ren Felix Referrals: [facility] [Outside] Jimena Salcedo MD [Physician] - 2 weeks (YOU HAVE A FOLLOW UP APPOINTMENT WITH DR. SALCEDO ON September AT 215 PM. IF YOU HAVE ANY QUESTION OR NEED TO RESHEDULE PLEASE CALL [phone]. ) Tay Egan, COMMERCIAL CREDIT ANALYST-C [Nurse Practitioner] - 08/29/20 11:20 am Discharge Diet: Cardiac and Low Fat Discharge Activity: Resume usual activity Patient Instructions: Famotidine (By mouth), Aspirin (By mouth), Topiramate (By mouth), Carvedilol (By mouth), Clopidogrel (By mouth), Hypertension, Transient Ischemic Attack (DC), Ischemic Stroke (DC), Self Care Measures After a Stroke (DC), Hypertensive Crisis (DC), Hypertension (DC), Fall Prevention (DC), Opioid Safety Activity Restrictions/Additional Instructions: Please check your blood pressure twice and maintain a blood pressure diary. Please follow-up with your primary care provider on the set date and follow-up with the blood pressure diary for further adjustment of blood pressure medications as needed. Please follow-up with Dr. Salcedo from neurology in 2 weeks. Discharge Attestations Time Spent in Discharge Care*: greater than 30 min Specific Discharge Activities: educating patient, discussing with pcp/other providers, discussing with case aide/social workers/dc planners, documenting/other paperwork and evaluating patient/reviewing data Status at Discharge: Cognitive status at discharge: cognitively intact, Behavioral status at discharge: cooperative, Functional status at discharge: uses cane/walker Overall status at discharge: patient is progressing back to baseline Quality Metrics Clinical Quality Measures During this hospital stay, did patient experience: None Coding Level of Care Code Acute Chg FW DC note Diagnoses Acute right arterial ischemic stroke, middle cerebral artery (MCA) I63.511 Status migrainosus G43.901 Hypertensive urgency I16.0 TIA (transient ischemic attack) G45.9 Headache R51.9 HLD (hyperlipidemia) E78.5 HTN (hypertension) I10
[2020-08-26 11:12] VITALS: BP 149/89; PULSE 73; RESP 21; TEMP 36.9; O2SAT 97
[2020-08-26 11:37] VITALS: BP 149/89; PULSE 73; RESP 21; TEMP 36.9; O2SAT 97
--- NOTE | 2020-08-26 11:59 | PC.NURSE ---
Meds to bed Dr. Javed would like it new Rx to meds to bed. Called meds.
[2020-08-26] MEDS: enoxaparin 40 mg/0.4 mL Syringe SUBCUT (12:17)
--- NOTE | 2020-08-26 13:00 | PC.NURSE ---
Discharge to home Informed pt that she needs to follow-up on Saturday for her pcp and neurologist. Educated pt and her regarding new meds actions, dosing, timing and possible side effects. Discuss extensively to pt and on how to quit smoking, fall prevention, stroke after care measures. Discharge packet provided to pt.
[2020-08-26] MEDS: ondansetron 2 mg/ML SDV 2 mL 4 MG IVP (14:11)
== END 2020-08-26 15:06 | disposition home health service (06) | DRG 65 ==
LOC: ER 21:48 → CSU 22:25 → ICU 08-24 20:29 → CSU 08-25 14:19
PROVIDERS: Admitting Provider Internal Medicine; Emergency Provider Emergency Medicine; Visit Provider Student in an Organized Health Care Education/Training Program
DX: I63.81 Other cerebral infarction due to occlusion or stenosis of small artery (principal); G81.94 Hemiplegia, unspecified affecting left nondominant side; R47.81 Slurred speech; R29.810 Facial weakness; R29.703 NIHSS score 3; I10 Essential (primary) hypertension; I16.0 Hypertensive urgency; E78.5 Hyperlipidemia, unspecified; I65.21 Occlusion and stenosis of right carotid artery; I95.1 Orthostatic hypotension; F17.210 Nicotine dependence, cigarettes, uncomplicated; G43.901 Migraine, unspecified, not intractable, with status migrainosus
CPT/HCPCS: 36415; 36416; 70450; 70496; 70498; 70551; 71045; 80048; 80053; 80061; 80306; 81001; 82962; 83036; 83540; 83550; 83735; 84443; 84484; 85025; 85610; 85730; 92523; 92610; 93005; 93306; 96372; 96374; 96375; 96376; 97161; 97166; 97530; 99283; 99291; G0378; J0360; J1650; J2060; J2405; J3490; J7030; Q9967

== ENCOUNTER → 2020-09-20 13:49 | Outpatient (BNVA) | payer MEDICARE, SELFPAY | PROVIDERS: PCP Nurse Practitioner; Referring Provider Student in an Organized Health Care Education/Training Program; Visit Provider Specialist | DX: I69.354 Hemiplegia and hemiparesis following cerebral infarction affecting left non-dominant side (principal); I65.21 Occlusion and stenosis of right carotid artery; G43.901 Migraine, unspecified, not intractable, with status migrainosus; I10 Essential (primary) hypertension; Z87.891 Personal history of nicotine dependence | CPT/HCPCS: 99205 ==

== ENCOUNTER 2020-10-03 09:49 | Outpatient (CLI) | payer MEDICARE, SELFPAY ==
--- NOTE | 2020-10-03 10:30 | CT_ITS ---
WS: [id number] CT ANGIOGRAM CEREBRAL ARTERIES HISTORY: I63.9 - Cerebral infarction, unspecified TECHNIQUE: Pre and postcontrast imaging through the brain. CT angiogram is performed of the cerebral arteries. During arterial injection imaging is obtained from the skull vertex to the skull base in 1. 25 mm imaging. Coronal and sagittal reformats are submitted. Additional multi planar reformats of the cerebral arteries are submitted, MIP imaging also reviewed. All CT scans at [facility] use at least one of these dose optimization techniques: automated exposure control; mA and/or kV adju stment per patient size (includes targeted exams where dose is matched to clinical indication); or it erative reconstruction. CONTRAST: Omnipaque 300; 95 mL IV. DLP: 1286.64 mGycm COMPARISON: 08/25/[address] CT [address] Non[address] head CT negative for acute infarct infarct or hemorrhage. Prior ischemic infarct in the R IGHT frost radiata and basal ganglia. Prior lacunar infarct in the LEFT caudate head and basal gangl ia. Intracranial vertebral arteries: Normal with no significant atherosclerosis. Basilar artery: No significant stenosis or occlusion. No aneurysm. Intracranial Internal carotid arteries: Small caliber RIGHT intracranial carotid artery. There is mil d intimal thickening without significant calcified plaque. Significant narrowing of the RIGHT supracl inoid ICA. Similar to the prior study. Middle cerebral arteries: Small caliber RIGHT middle cerebral artery as compared to the LEFT but unch anged. No aneurysm. Normal LEFT MCA. Anterior cerebral arteries and ACOM: Hypoplastic RIGHT A1 segment. No aneurysm. Posterior cerebral arteries and PCOM's: Normal. Dural venous sinuses are normally enhancing. Mastoid air cells: Normal. Paranasal sinuses: Normal. Calvarium: Normal. CT/CT angio head [id number] IMPRESSION: 1. Stable severe narrowing of the RIGHT supraclinoid ICA measuring 1.5 mm. 2. No significant LEFT ICA stenosis. 3. No dissection or aneurysm. 4. Prior infarcts in the RIGHT frost radiata with extension to the basal gang [place] and the LEFT caudate head and basal ganglia.
--- NOTE | 2020-10-03 10:34 | MR_ITS ---
WS: [id number] MRA ANGIOGRAPHY [place] HISTORY: I63.9 - Cerebral infarction, unspecified COMPARISON: 10/03/2020 CT angiogram. TECHNIQUE: 3-D MR angiography is performed of the [place]. All images are reviewed including source images. Distal vertebral and basilar arteries are intact with no significant stenosis or plaque. Posterior ce rebral arteries are normal course and caliber. Posterior communicating arteries are both patent. Small caliber RIGHT supraclinoid ICA is similar to prior studies. No evident dissection or aneurysm. RIGHT MCA is smaller caliber than the LEFT but this is stable. No aneurysms. Hypoplastic RIGHT A1 seg ment is similar to prior studies. Posterior cerebral arteries are normal. MR/MR angio head wo con [id number] IMPRESSION: 1. Small caliber, 2 mm, RIGHT supraclinoid ICA is similar to prior studies. 2. No cerebral aneurysm. 3. Hypoplastic RIGHT A1 segment.
[2020-10-03] MEDS: iohexol 350 mg/mL 100 mL Btl IV (10:54)
== END 2020-10-03 09:50 | disposition home or self-care (01) ==
PROVIDERS: PCP Nurse Practitioner; Visit Provider Specialist
DX: I63.9 Cerebral infarction, unspecified (principal)
CPT/HCPCS: 70496; 70544; Q9967

== ENCOUNTER 2020-11-30 21:16 | Emergency (ER) | payer MEDICARE, SELFPAY ==
[2020-11-30 22:59] VITALS: BP 145/85; PULSE 57; RESP 16; TEMP 37.8; O2SAT 98; BMI 32.3
--- NOTE | 2020-11-30 23:26 | W.ED.NAVMDI ---
HPI - Nausea/Vomiting/Diarrhea General: Chief complaint: Nausea/Vomiting/Diarrhea Stated complaint: diarrhea,vomiting Time Seen by Provider: 11/30/20 23:25 History of Present Illness: HPI Narrative: 64-year-old female comes in today with complaints of sore throat starting yesterday with nausea, poor appetite and diarrhea today. Patient is also had a fever at times. Patient has not been able to get her Covid vaccine due to allergies to medications. Patient does have a history of CVA and takes routine medications for hypertension and stroke prevention. Patient has been a previous smoker but does no longer smoke. Review of Systems General: Reports: 10 or more systems reviewed and unremarkable except in HPI and below Const: Reports: fever(s) ENMT: Reports: throat pain GI: Reports: diarrhea PFSH ED PFSH: Medical History (Updated 12/01/20 @ 01:50 by YRIS Pabon) WILFRIDO (generalized anxiety disorder) Headache History of DVT of lower extremity HLD (hyperlipidemia) HTN (hypertension) Status migrainosus TIA (transient ischemic attack) Surgical History (Updated 09/22/20 @ 10:05 by CHARITY Shepherd) History of hysterectomy Family History Other Hypertension Denies family history of Stroke Social History Smoking and tobacco status: former smoker Second hand smoke exposure: No Smoking risk assessment/counseling performed?: No Alcohol intake: never Desire information about alcohol rehabilitation?: No Counseling given: No Desire information about substance/drug rehabilitation?: No Counseling given: No Adopted: No Caregiver/support person: No Lives independently: Yes Household members: spouse Housing: House Marital status: Number of children: 3 service: No Current occupational status: unemployed History of recent travel: No Current gender identity: Female Physical Exam Const: COMMON NORMALS: no acute distress and patient oriented x3 GENERAL APPEARANCE: cooperative HENMT: COMMON NORMALS: normocephalic, TM's normal bilaterally and Normal external nose present HEAD & SCALP: normal to inspection and normocephalic NOSE: Normal external nose present TYMPANIC MEMBRANE: TM's normal bilaterally MOUTH: Normal oral and palatal mucosa present THROAT: posterior oropharynx normal Eye: GENERAL EYE: appearance normal, both eyes and all related structures Neck/C-Spine: COMMON NORMALS: full ROM Lymph: LYMPHATIC: no lymphadenopathy noted Chest: COMMONS NORMALS: normal inspection of the chest Resp: COMMON NORMALS: normal respiratory effort EFFORT & INSPECTION: Yes able to speak in complete sentences Cardio: COMMON NORMALS: regular rate and regular rhythm RATE: regular rate RHYTHM: regular rhythm GI: COMMON NORMALS: non-tender AUSCULTATION: Yes Hyperactive bowel sounds present : COMMON NORMALS: Yes no CVA tenderness BLADDER/KIDNEY EXAM: Yes no CVA tenderness Back/Pelvis: COMMON NORMALS: no CVA tenderness and thoracic and lumbar spine normal to inspection Extremity: COMMON NORMALS: normal to inspection Neuro: COMMON NORMALS: patient oriented x3 and moves all extremities Psych: COMMON NORMALS: mental status grossly normal and cooperative Skin: COMMON NORMALS: no rashes or lesions noted GENERAL SKIN EXAM: no rashes or lesions noted Course Vital Signs: Vital signs: Vital Signs Temperature 100.0 F H 11/30/20 22:59 Pulse Rate 58 L 12/01/20 00:43 Respiratory Rate 18 12/01/20 00:43 Blood Pressure 154/76 12/01/20 00:43 Pulse Oximetry 99 12/01/20 00:43 MDM - Nausea/Vomiting/Diarrhea MDM Narrative: Medical decision making narrative: 64-year-old female comes in today with onset of sore throat yesterday with diarrhea today. Patient also reports some fever. Patient reports last week she had been to several doctors visits and is concerned she might of gotten COVID-19. Patient appears mildly unwell but not toxic. Abdomen is soft and nontender with hyperactive bowel sounds. Skin is warm and dry. Vital signs are normal except for a low-grade temperature of 100. Differential diagnosis includes viral syndrome, gastroenteritis, abscess or infectious process in the abdomen, COVID-19, strep pharyngitis. Strep test was negative, COVID-19 was positive, laboratory values were unremarkable. Chest x-ray was normal. Feel the patient probably has COVID-19 she is in the acute phase at day 2. I discussed with patient the use of monoclonal antibodies and recommended treatment with that she wanted to wait at this time and will discuss it with her spouse and her primary care provider. We will go ahead and offer supportive care encouraged Tylenol, oral liquids, Zofran for nausea, and Imodium for diarrhea. Patient reported understanding of care plan and need for follow-up or return to the ER for shortness of breath or other new concerns. Lab Data: Labs: Lab Results 11/30/20 11/30/20 12/01/20 Range/Units 23:52 23:52 00:52 WBC 6.7 (4.0-10.0) 10^3/ uL RBC 3.96 L (4.1-5.3) 10^6/u L Hgb 12.1 (11.5-15.3) g/dL Hct 38.4 (37.0-47.0) % MCV 97.0 (81-99) fl MCH 30.6 (28.0-34.0) pg MCHC 31.5 (30.0-36.0) g/dL RDW 13.2 (12.1-15.1) % Plt Count 232 (130-400) 10^3/c mm MPV 10.5 H (7.4-10.4) fL Neut % (Auto) 71.3 % Lymph % (Auto) 19.0 % Burnett % (Auto) 9.0 % Eos % (Auto) 0.1 % Baso % (Auto) 0.3 % Neut # (Auto) 4.78 (1.8-7.7) 10^3/u L Lymph # (Auto) 1.3 (0.8-4.8) 10^3/u L Burnett # (Auto) 0.6 (0.2-0.9) 10^3/u L Eos # (Auto) 0.0 (0.0-0.8) 10^3/u L Baso # (Auto) 0.0 (0.0-0.1) 10^3/u L Nucleated RBC % (a uto) 0 % Nucleated RBCs # 0.0 /100WBC Sodium 137 (136-145) mmol/L Potassium 4.3 (3.5-5.1) mmol/L Chloride 104 (98-107) mmol/L Carbon Dioxide 20 L (22-29) mmol/L Anion Gap 17.3 (5-19) BUN 13 (8-23) mg/dL Creatinine 1.0 H (0.5-0.9) mg/dL GFR Calculation 55.6 L (90-130) mL/min Glucose 101 (65-115) mg/dL Calculated Osmolal ity 284 L (285-295) mOsm/k g Calcium 8.7 (8.5-10.5) mg/dL Total Bilirubin 0.4 (0.15-1.2) mg/dL AST 16 (0-32) U/L ALT 12 (0-33) U/L Alkaline Phosphata se 86 (35-105) IU/L Total Protein 7.2 (6.6-8.7) g/dL Albumin 4.1 (3.5-5.2) g/dL Globulin 3.1 (1.3-4.6) g/dL Lipase 55 (13-60) U/L SARS-CoV-2 Ag (Rap id) Positive H (Negative) Group A Strep Rapi d (Negative) 12/01/20 Range/Units 00:52 WBC (4.0-10.0) 10^3/ uL RBC (4.1-5.3) 10^6/u L Hgb (11.5-15.3) g/dL Hct (37.0-47.0) % MCV (81-99) fl MCH (28.0-34.0) pg MCHC (30.0-36.0) g/dL RDW (12.1-15.1) % Plt Count (130-400) 10^3/c mm MPV (7.4-10.4) fL Neut % (Auto) % Lymph % (Auto) % Burnett % (Auto) % Eos % (Auto) % Baso % (Auto) % Neut # (Auto) (1.8-7.7) 10^3/u L Lymph # (Auto) (0.8-4.8) 10^3/u L Burnett # (Auto) (0.2-0.9) 10^3/u L Eos # (Auto) (0.0-0.8) 10^3/u L Baso # (Auto) (0.0-0.1) 10^3/u L Nucleated RBC % (a uto) % Nucleated RBCs # /100WBC Sodium (136-145) mmol/L Potassium (3.5-5.1) mmol/L Chloride (98-107) mmol/L Carbon Dioxide (22-29) mmol/L Anion Gap (5-19) BUN (8-23) mg/dL Creatinine (0.5-0.9) mg/dL GFR Calculation (90-130) mL/min Glucose (65-115) mg/dL Calculated Osmolal ity (285-295) mOsm/k g Calcium (8.5-10.5) mg/dL Total Bilirubin (0.15-1.2) mg/dL AST (0-32) U/L ALT (0-33) U/L Alkaline Phosphata se (35-105) IU/L Total Protein (6.6-8.7) g/dL Albumin (3.5-5.2) g/dL Globulin (1.3-4.6) g/dL Lipase (13-60) U/L SARS-CoV-2 Ag (Rap id) (Negative) Group A Strep Rapi d Negative (Negative) Discharge Plan Discharge Patient Disposition: Home Clinical Impression: COVID-19 Condition: Stable Prescriptions: New Imodium A-D 2 mg tablet 2 mg PO Q4H PRN (Reason: loose stool) Qty: 20 RF: 0 ondansetron 4 mg tablet,disintegrating 4 mg PO Q8H PRN (Reason: nausea and vomiting) Qty: 10 RF: 0 No Action aspirin 81 mg tablet,delayed release (DR/EC) 81 mg PO DAILY Qty: 30 RF: 2 Lipitor 40 mg tablet 40 mg PO DAILY Qty: 30 RF: 2 Coreg 6.25 mg tablet 6.25 mg PO BID Qty: 60 RF: 2 clopidogrel 75 mg tablet 75 mg PO DAILY Qty: 30 RF: 2 famotidine 20 mg tablet 20 mg PO BID Qty: 60 RF: 2 lisinopril 20 mg tablet 20 mg PO DAILY Qty: 30 RF: 2 topiramate 25 mg tablet 25 mg PO BID 30 Days Qty: 60 RF: 2 lisinopril 10 mg tablet 10 mg PO .daily in PM Qty: 30 RF: 2 venlafaxine [Effexor XR] 37.5 mg capsule,extended release 24hr 37.5 mg PO DAILY Qty: 30 RF: 1 Tylenol PM Extra Strength 25-500 mg Tablet 1 tab PO BEDTIME RF: 0 Discharge Orders: Discharge ED (Routine); Ordered 12/01/20 Ordered By: Priyank Rodriguez Referrals: Tay Egan, ELENAC [Primary Care Provider] - Discharge Diet: Usual diet Discharge Activity: Increase activity as tolerated Patient Instructions: Viral Syndrome (ED), Opioid Safety Activity Restrictions/Additional Instructions: Home and rest. Drink plenty of fluids. Use Zofran, ondansetron, every 8 hours as needed for nausea or vomiting. Use loperamide every 4 hours as needed for diarrhea or loose stools. Use Tylenol for pain and fever. Is important to stay well-hydrated. Follow-up with primary care for further instructions. Return to the emergency department for worsening shortness of breath, inability to hold fluids down, or new concerns. Coding Level of Care Code ED Wallboard Worker for Brian Fwd Exam Comprehensive
--- NOTE | 2020-11-30 23:27 | XRR_ITS ---
PROCEDURE INFORMATION: Exam: XR Chest Exam date and time: 11/30/2020 11:27 PM Age: 64 years old Clinical indication: Cough and fever and shortness of breath; Additional info: Cough, fever TECHNIQUE: Imaging protocol: XR of the chest. Views: 1 view. COMPARISON: CR XR chest 1V portable [id number] 08/23/2020 8:08 PM FINDINGS: Lungs: Unremarkable. No consolidation. Pleural spaces: Unremarkable. No pleural effusion. No pneumothorax. Heart/Mediastinum: Unremarkable. No cardiomegaly. Bones/joints: Unremarkable. XR/XR chest 1V portable [id number] IMPRESSION: No change, unremarkable
[2020-11-30 23:57] LABS: Basophils % 0.3 %; Eosinophils % 0.1 %; Hematocrit 38.4 % (37.0-47.0); Hemoglobin 12.1 g/dL (11.5-15.3); Lymphocytes # 1.3 10^3/uL (0.8-4.8); Mean Corpuscular HGB Conc 31.5 g/dL (30.0-36.0); Mean Corpuscular Hemoglobin 30.6 pg (28.0-34.0); Mean Platelet Volume 10.5 fL (7.4-10.4); Monocytes # 0.6 10^3/uL (0.2-0.9); Neutrophils # 4.78 10^3/uL (1.8-7.7); Neutrophils % 71.3 %; Nucleated Red Blood Cells % 0 %; Platelet Count 232 10^3/cmm (130-400); Red Blood Count 3.96 10^6/uL (4.1-5.3); Red Cell Distribution Width 13.2 % (12.1-15.1); White Blood Count 6.7 10^3/uL (4.0-10.0)
[2020-12-01 00:14] LABS: Alanine Aminotransferase 12 U/L (0-33); Albumin Level 4.1 g/dL (3.5-5.2); Alkaline Phosphatase 86 IU/L (35-105); Anion Gap 17.3 (5-19); Aspartate Amino Transferase 16 U/L (0-32); Blood Urea Nitrogen 13 mg/dL (8-23); Calcium 8.7 mg/dL (8.5-10.5); Carbon Dioxide 20 mmol/L (22-29); Chloride 104 mmol/L (98-107); Globulin 3.1 g/dL (1.3-4.6); Glomerular Filtration Rate 55.6 mL/min (90-130); Glucose 101 mg/dL (65-115); Lipase 55 U/L (13-60); Osmolality Calculated 284 mOsm/kg (285-295); Potassium 4.3 mmol/L (3.5-5.1); Sodium 137 mmol/L (136-145); Total Bilirubin 0.4 mg/dL (0.15-1.2); Total Protein 7.2 g/dL (6.6-8.7)
[2020-12-01] MEDS: sodium chloride 0.9% 1,000 ML 999 ML IV (00:41)
[2020-12-01 00:43] VITALS: BP 154/76; PULSE 58; RESP 18; O2SAT 99
[2020-12-01 01:22] LABS: Rapid Strep A Test Negative (Negative)
[2020-12-01 01:25] LABS: SARS Covid-2 Antigen Positive (Negative)
[2020-12-01] MEDS: diphenoxylate/atropine Tablet 2 TAB PO (02:27)
[2020-12-01] MEDS: ondansetron 4 MG Tablet PO (02:30)
[2020-12-01 02:50] VITALS: BP 165/79; PULSE 65; RESP 18; TEMP 37.2; O2SAT 97
--- NOTE | 2020-12-01 18:07 | PC.NURSE ---
2 prescriptions called in to [facility] in [place], [place]. Imodium A-D 2mg tablet, 2mg PO Q4H PRN QTY 20, RF:0 ondansetron 4mg tablet, disintegrating 4mg PO Q8H PRN, QTY 10, RF 0
== END 2020-12-01 02:51 | disposition home or self-care (01) ==
PROVIDERS: Emergency Medicine; Emergency Provider Nurse Practitioner Family; PCP Nurse Practitioner
DX: U07.1 COVID-19 (principal); Z79.82 Long term (current) use of aspirin; Z79.02 Long term (current) use of antithrombotics/antiplatelets; E78.5 Hyperlipidemia, unspecified; I10 Essential (primary) hypertension; Z86.73 Personal history of transient ischemic attack (TIA), and cerebral infarction without residual deficits; Z86.718 Personal history of other venous thrombosis and embolism; Z87.891 Personal history of nicotine dependence
CPT/HCPCS: 71045; 80053; 83690; 85025; 87081; 87426; 87880; 96360; 99283; J7030; Q0162

== ENCOUNTER 2020-12-09 10:24 | Outpatient (CLI) | payer MEDICARE, SELFPAY ==
[2020-12-09 10:29] VITALS: BP 123/62; PULSE 49; RESP 20; TEMP 36.7; O2SAT 95; BMI 31.3
[2020-12-09 12:40] VITALS: BP 113/57; PULSE 50; RESP 16; TEMP 36.7; O2SAT 96
== END 2020-12-09 10:25 | disposition home or self-care (01) ==
LOC: OPS 10:28
PROVIDERS: PCP Nurse Practitioner; Visit Provider Nurse Practitioner
DX: U07.1 COVID-19 (principal)
CPT/HCPCS: 96365

== ENCOUNTER → 2020-12-22 16:15 | Outpatient (BNVA) | payer MEDICARE, SELFPAY | PROVIDERS: PCP Nurse Practitioner; Visit Provider Nurse Practitioner Family | DX: R06.02 Shortness of breath (principal); U07.1 COVID-19 | CPT/HCPCS: 71046 ==

== ENCOUNTER → 2021-01-02 13:49 | Outpatient (BNVA) | payer MEDICARE, SELFPAY | PROVIDERS: PCP Nurse Practitioner; Visit Provider Nurse Practitioner | DX: R06.02 Shortness of breath (principal); F41.1 Generalized anxiety disorder | CPT/HCPCS: 80053; 85025; 85379 ==

== ENCOUNTER 2021-01-06 13:15 | Outpatient (CLI) | payer MEDICARE, SELFPAY ==
[2021-01-06] MEDS: iodixanol 320 mg/mL 100mL Btl IV (14:13)
--- NOTE | 2021-01-06 15:00 | CT_ITS ---
WS: [id number] CTA OF THE CHEST WITH PULMONARY EMBOLISM PROTOCOL TECHNIQUE: High-resolution contrast enhanced CTA of the chest with coronal and sagittal reformatted i mages with pulmonary embolism protocol. MIP images are also reviewed. CLINICAL INFORMATION: R06.02 - Shortness of breath COMPARISON: None. DLP: [address] scans at [facility] use at least one of these dose optimization techniques: automated e xposure control; mA and/or kV adjustment per patient size (includes targeted exams where dose is matc hed to clinical indication); or iterative reconstruction. FINDINGS: Proximal main pulmonary arteries are normal. Normal segmental and subsegmental pulmonary arteries. No evidence of pulmonary embolus. Normal caliber thoracic aorta. Moderate chronic emphysematous changes . Patchy subpleural hazy groundglass infiltrates in both lungs likely infectious or inflammatory. Recommend correlation with history of Covid 19 pneumonia. No focal conso lidation or pleural fluid. Subpleural nodule right upper lobe measuring 5 mm. Subsegmental atelectasi s the lung bases. A few enlarged peribronchial lymph nodes nonspecific but likely reactive. Enlarged right hilar and hdz bcarinal lymph nodes. Calcified subcarinal lymph nodes. Adrenal glands are normal. Normal GE junction. Mild hypertrophic changes thoracic spine. CT/CT angio chest PE protcl [id number] IMPRESSION: 1. Proximal main pulmonary arteries are normal. No evidence of pulmonary embol us. 2. Moderate chronic emphysematous changes. 3. Bilateral diffuse Patchy hazy groundglass opacities within both lungs likel y due to history of COVID 19 pneumonia. 4. No focal consolidation or pleural fluid. 5. A few enlarged anterior mediastinal, subcarinal and right hilar lymph nodes nonspecific but likely reactive. 6. Normal caliber thoracic aorta. 7. Noncalcified nodule right upper lobe measuring 5 mm. Recommend 6 month foll ow-up chest CT.
== END 2021-01-06 13:16 | disposition home or self-care (01) ==
PROVIDERS: PCP Nurse Practitioner; Visit Provider Nurse Practitioner
DX: R06.02 Shortness of breath (principal); R91.1 Solitary pulmonary nodule
CPT/HCPCS: 71275; Q9967

== ENCOUNTER 2021-06-23 13:06 | Emergency (ER) | payer MEDICARE, SELFPAY ==
[2021-06-23 13:20] VITALS: BP 114/67; PULSE 72; RESP 16; TEMP 36.7; O2SAT 99; BMI 33.9
--- NOTE | 2021-06-23 13:29 | XR_ITS ---
WS: [id number] XR shoulder LT min 2V* [id number] REASON FOR EXAM: injury, possible rotator cuff FINDINGS: The acromial clavicular joint is narrowed with mild subchondral sclerosis and cystic change. No findi ngs of AC separation. The humeral head is close approximation of the acromial process on the external rotation view. On the internal rotation view there is a double density of the humeral head. XR/XR shoulder LT min 2V* [id number] IMPRESSION: Mildly displaced fracture of the biceps tuberosity.
--- NOTE | 2021-06-23 13:31 | W.ED.EXTPRO ---
HPI - Extremity Problem General: Chief complaint: Extremity Injury, Upper Stated complaint: Left arm pain, cant hardle move around Time Seen by Provider: 06/23/21 13:08 History of Present Illness: Patient injured left shoulder approximately 3 weeks ago when she was holding the handle in the truck to get out which she does all the time because she is so short but she felt a pull and she has had difficulty moving her left shoulder since then. Associated symptoms: Deny chest pain, fever(s) or rash Review of Systems Const: Denies: fever(s), chills or body aches Eyes: Denies: eye discomfort ENMT: Denies: throat pain Card: Denies: chest pain Resp: Denies: dyspnea GI: Denies: abdominal pain, nausea or vomiting Musc: Reports: joint pain (Left shoulder is hurting x3 weeks) and limited range of motion (Hurts back of the shoulder and back the humerus area.) Skin/Breast: Denies: rash Neuro: Denies: headache(s) Psych: Denies: depression or suicidal ideation PFS ED PFSH: Medical History (Updated 06/23/21 @ 13:58 by YRIS Mcgee) WILFRIDO (generalized anxiety disorder) Headache History of COVID-19 12/01/20 History of DVT of lower extremity HLD (hyperlipidemia) HTN (hypertension) Lung nodule < 6cm on CT Status migrainosus TIA (transient ischemic attack) Surgical History History of hysterectomy Family History Other Hypertension Denies family history of Stroke Social History Second hand smoke exposure: No Smoking risk assessment/counseling performed?: No Alcohol intake: never Desire information about alcohol rehabilitation?: No Counseling given: No Desire information about substance/drug rehabilitation?: No Counseling given: No Adopted: No Caregiver/support person: No Lives independently: Yes Household members: spouse Housing: House Marital status: Number of children: 3 service: No Current occupational status: unemployed History of recent travel: No Current gender identity: Female Physical Exam Const: COMMON NORMALS: no acute distress, patient oriented x3 and alert HENMT: COMMON NORMALS: normocephalic and external ears normal HEAD & SCALP: normocephalic EXTERNAL EAR: Yes external ears normal Eye: COMMON NORMALS: EOMs intact bilaterally Neck/C-Spine: COMMON NORMALS: no JVD Resp: COMMON NORMALS: normal respiratory effort and No use of accessory muscles Cardio: COMMON NORMALS: no JVD GI: INSPECTION: Yes normal to inspection Extremity: COMMON NORMALS: normal to inspection and full ROM LEFT UPPER EXTREMITY: Yes shoulder joint (Tenderness to anterior and posterior aspects of the shoulder. Patient is a) Left shoulder joint: Yes ROM (She is unable to lift arm up but can go anterior posterior), Yes neurovascular exam (Intact) and Yes special tests Left shoulder special tests: Apley scratch test: Positive and Crossover impingement test: Positive Neuro: COMMON NORMALS: patient oriented x3 SENSORIUM/ORIENTATION: Yes alert Psych: COMMON NORMALS: mental status grossly normal Skin: COMMON NORMALS: no rashes or lesions noted GENERAL SKIN EXAM: no rashes or lesions noted Course Vital Signs: Vital signs: Vital Signs Temperature 98.0 F 06/23/21 13:20 Pulse Rate 72 06/23/21 13:20 Respiratory Rate 16 06/23/21 13:20 Blood Pressure 114/67 06/23/21 13:20 Pulse Oximetry 99 06/23/21 13:20 MDM - Extremity (Nontraumatic) Medical Decision Making Clinical exam Radiology picture consistent with rotator cuff injury or tendinosis. Patient given prescription asked follow-up primary care doctor and do exercises as we discussed. Discharge Plan Discharge Patient Disposition: Home Clinical Impression: Rotator cuff injury Condition: Stable Prescriptions: New Ivelisse Arthritis Pain 1 % gel 4 g topical QID Qty: 100 0RF Rx Instructions: apply to single knee, ankle, foot; for foot includes sole/toes/top of foot hydrocodone-acetaminophen 5-325 mg tablet 1 tab PO TID PRN (Reason: pain) Qty: 14 0RF No Action ondansetron HCl [Zofran] 4 mg tablet 4 mg PO Q8H PRN (Reason: nausea and vomiting) Qty: 20 0RF (DME) Pulse oximetry See Rx Instructions .Route .MEDSUPPLY Qty: 1 0RF Rx Instructions: As directed (DME) nebulizer accessories Kit See Rx Instructions .Route Qty: 1 0RF Rx Instructions: As directed furosemide [Lasix] 20 mg tablet 20 mg PO QAM Qty: 30 2RF lisinopril 20 mg tablet 20 mg PO BID Qty: 60 2RF Lipitor 40 mg tablet 40 mg PO DAILY Qty: 30 2RF Brebilltri Aerosphere 160-9-4.8 mcg/actuation HFA aerosol inhaler 2 inh inhalation BID Qty: 10.7 2RF Coreg 6.25 mg tablet 6.25 mg PO BID Qty: 60 2RF Rx Instructions: must administer with a meal/food clopidogrel 75 mg tablet 75 mg PO DAILY Qty: 30 2RF famotidine 20 mg tablet 20 mg PO BID Qty: 60 2RF topiramate 25 mg tablet 25 mg PO BID 30 Days Qty: 60 2RF sertraline [Zoloft] 50 mg tablet 50 mg PO DAILY Qty: 30 2RF albuterol sulfate [Ventolin HFA] 90 mcg/actuation HFA aerosol inhaler 2 puff inhalation Q6H PRN (Reason: shortness of breath or wheezing) Qty: 8.5 2RF aspirin 81 mg tablet,delayed release (DR/EC) 81 mg PO DAILY Qty: 30 2RF (DME) compressor, for nebulizer Device See Rx Instructions .Route Qty: 1 0RF Rx Instructions: As directed albuterol sulfate 2.5 mg /3 mL (0.083 %) solution for nebulization 2.5 mg inhalation QID PRN (Reason: shortness of breath or wheezing) Qty: 180 0RF (DME) oxygen concentrator See Rx Instructions .Route .MEDSUPPLY Qty: 1 0RF Rx Instructions: As directed oxygen concentrator 2liters n/c nocturnal daily Tylenol PM Extra Strength 25-500 mg Tablet 1 tab PO BEDTIME 0RF Imodium A-D 2 mg tablet 2 mg PO Q4H PRN (Reason: loose stool) Qty: 20 0RF Rx Instructions: do not exceed 16 mg per 24 hrs Discharge Orders: Discharge ED (Routine); Ordered 06/23/21 Ordered By: Cristobal Ramírez Referrals: Tay Egan, RADIAGRAPH OPERATOR-C [Primary Care Provider] - Discharge Diet: Usual diet Discharge Activity: Increase activity as tolerated Patient Instructions: Rotator Cuff Injury (ED) Activity Restrictions/Additional Instructions: Follow-up with medical provider as directed. Take medications as prescribed. Return to the ER or your medical provider if condition worsens. Please read and understand discharge instructions. If any questions ask please. Do physical therapy exercises we discussed. Coding Level of Care Code ED Flat Polisher for Brian Fwmeliza Exam Comprehensive
--- NOTE | 2021-06-23 15:21 | W.ED.EXTPRO ---
HPI - Extremity Problem General: Chief complaint: Extremity Injury, Upper Stated complaint: Left arm pain, cant hardle move around Time Seen by Provider: 06/23/21 13:08 History of Present Illness: possible fractured bicep tuberosity [facility] ED PFS: Medical History (Updated 06/23/21 @ 15:18 by YRIS Mcgee) WILFRIDO (generalized anxiety disorder) Headache History of COVID-19 12/01/20 History of DVT of lower extremity HLD (hyperlipidemia) HTN (hypertension) Lung nodule < 6cm on CT Status migrainosus TIA (transient ischemic attack) Surgical History History of hysterectomy Family History Other Hypertension Denies family history of Stroke Social History Second hand smoke exposure: No Smoking risk assessment/counseling performed?: No Alcohol intake: never Desire information about alcohol rehabilitation?: No Counseling given: No Desire information about substance/drug rehabilitation?: No Counseling given: No Adopted: No Caregiver/support person: No Lives independently: Yes Household members: spouse Housing: House Marital status: Number of children: 3 service: No Current occupational status: unemployed History of recent travel: No Current gender identity: Female Course Vital Signs: Vital signs: Vital Signs Temperature 98.0 F 06/23/21 13:20 Pulse Rate 72 06/23/21 13:20 Respiratory Rate 16 06/23/21 13:20 Blood Pressure 114/67 06/23/21 13:20 Pulse Oximetry 99 06/23/21 13:20 MDM - Extremity (Nontraumatic) Medical Decision Making Radiology study reveals possible fracture of the biceps tuberosity. Patient does appear to have rotator cuff problems also. And some arthritic changes. Message left on patient's phone at 1521 today to tell her that she can have a follow-up appointment with orthopedic clinic that she which should wear sling take medication as directed. Lab Data Radiology Impressions Shoulder X-Ray 06/23/21 13:29 IMPRESSION: Mildly displaced fracture of the biceps tuberosity. Discharge Plan Discharge Patient Disposition: Home Clinical Impression: Rotator cuff injury Fracture, humerus Qualifiers: Encounter type: initial encounter Humerus Location: proximal Fracture type: closed Fracture alignment: displaced Laterality: left Condition: Stable Prescriptions: New Voltaren Arthritis Pain 1 % gel 4 g topical QID Qty: 100 0RF Rx Instructions: apply to single knee, ankle, foot; for foot includes sole/toes/top of foot hydrocodone-acetaminophen 5-325 mg tablet 1 tab PO TID PRN (Reason: pain) Qty: 14 0RF No Action ondansetron HCl [Zofran] 4 mg tablet 4 mg PO Q8H PRN (Reason: nausea and vomiting) Qty: 20 0RF (DME) Pulse oximetry See Rx Instructions .Route .MEDSUPPLY Qty: 1 0RF Rx Instructions: As directed (DME) nebulizer accessories Kit See Rx Instructions .Route Qty: 1 0RF Rx Instructions: As directed furosemide [Lasix] 20 mg tablet 20 mg PO QAM Qty: 30 2RF lisinopril 20 mg tablet 20 mg PO BID Qty: 60 2RF Lipitor 40 mg tablet 40 mg PO DAILY Qty: 30 2RF Breztri Aerosphere 160-9-4.8 mcg/actuation HFA aerosol inhaler 2 inh inhalation BID Qty: 10.7 2RF Coreg 6.25 mg tablet 6.25 mg PO BID Qty: 60 2RF Rx Instructions: must administer with a meal/food clopidogrel 75 mg tablet 75 mg PO DAILY Qty: 30 2RF famotidine 20 mg tablet 20 mg PO BID Qty: 60 2RF topiramate 25 mg tablet 25 mg PO BID 30 Days Qty: 60 2RF sertraline [Zoloft] 50 mg tablet 50 mg PO DAILY Qty: 30 2RF albuterol sulfate [Ventolin HFA] 90 mcg/actuation HFA aerosol inhaler 2 puff inhalation Q6H PRN (Reason: shortness of breath or wheezing) Qty: 8.5 2RF aspirin 81 mg tablet,delayed release (DR/EC) 81 mg PO DAILY Qty: 30 2RF (DME) compressor, for nebulizer Device See Rx Instructions .Route Qty: 1 0RF Rx Instructions: As directed albuterol sulfate 2.5 mg /3 mL (0.083 %) solution for nebulization 2.5 mg inhalation QID PRN (Reason: shortness of breath or wheezing) Qty: 180 0RF (DME) oxygen concentrator See Rx Instructions .Route .MEDSUPPLY Qty: 1 0RF Rx Instructions: As directed oxygen concentrator 2liters n/c nocturnal daily Tylenol PM Extra Strength 25-500 mg Tablet 1 tab PO BEDTIME 0RF Imodium A-D 2 mg tablet 2 mg PO Q4H PRN (Reason: loose stool) Qty: 20 0RF Rx Instructions: do not exceed 16 mg per 24 hrs Discharge Orders: Discharge ED (Routine); Ordered 06/23/21 Ordered By: Cristobal Ramírez Referrals: Tay Egan, ELENAC [Primary Care Provider] - Discharge Diet: Usual diet Discharge Activity: Increase activity as tolerated Patient Instructions: Rotator Cuff Injury (ED) Activity Restrictions/Additional Instructions: Follow-up with medical provider as directed. Take medications as prescribed. Return to the ER or your medical provider if condition worsens. Please read and understand discharge instructions. If any questions ask please. Do physical therapy exercises we discussed. Coding Level of Care Code ED Natural Science Manager for Brian Francois
--- NOTE | 2021-06-26 11:21 | DCPLANNER ---
Addendum entered by Toña Zhang 07/14/21 09:12: Patient had a follow up appointment with ortho - patient did attend appointment. Addendum entered by Toña Zhang 06/27/21 08:40: Patient has a follow up appointment scheduled for Saturday, July 05, 2021 at 8:[address] Leiva at ortho. Clinic will call patient with appointment information. Original Note: architectural project manager had message to schedule a follow up appointment for patient with ortho. architectural project manager called the ortho clinic, spoke with Althea, gave clinic patients information. architectural project manager was told that patients information would be printed and reviewed. Clinic will call patient with appointment information.
== END 2021-06-23 14:07 | disposition home or self-care (01) ==
PROVIDERS: Emergency Provider Nurse Practitioner Family; PCP Nurse Practitioner
DX: S42.202A Unspecified fracture of upper end of left humerus, initial encounter for closed fracture (principal); S46.002A Unspecified injury of muscle(s) and tendon(s) of the rotator cuff of left shoulder, initial encounter; E78.5 Hyperlipidemia, unspecified; I10 Essential (primary) hypertension; Z86.73 Personal history of transient ischemic attack (TIA), and cerebral infarction without residual deficits; Z79.02 Long term (current) use of antithrombotics/antiplatelets; Z79.82 Long term (current) use of aspirin; X50.9XXA Other and unspecified overexertion or strenuous movements or postures, initial encounter
CPT/HCPCS: 73030; 99282

== ENCOUNTER → 2021-07-05 08:07 | Outpatient (BNVA) | payer MEDICARE, SELFPAY | PROVIDERS: PCP Nurse Practitioner; Referring Provider Nurse Practitioner Family; Visit Provider Specialist | DX: S42.302A Unspecified fracture of shaft of humerus, left arm, initial encounter for closed fracture (principal); X58.XXXA Exposure to other specified factors, initial encounter; Z46.89 Encounter for fitting and adjustment of other specified devices; S42.295D Other nondisplaced fracture of upper end of left humerus, subsequent encounter for fracture with routine healing; X58.XXXD Exposure to other specified factors, subsequent encounter | CPT/HCPCS: 73030; 97760; L3670 ==

== ENCOUNTER 2021-07-05 11:20 | Outpatient (CLI) | payer MEDICARE, SELFPAY | END 2021-07-05 11:21 | disposition home or self-care (01) | LOC: SPT 11:24 | PROVIDERS: PCP Nurse Practitioner; Visit Provider Specialist | DX: Z46.89 Encounter for fitting and adjustment of other specified devices (principal); S42.295D Other nondisplaced fracture of upper end of left humerus, subsequent encounter for fracture with routine healing; X58.XXXD Exposure to other specified factors, subsequent encounter | CPT/HCPCS: 97760; L3670 ==

== ENCOUNTER → 2021-07-10 13:53 | Outpatient (BNVA) | payer MEDICARE, SELFPAY | PROVIDERS: PCP Nurse Practitioner; Visit Provider Nurse Practitioner | DX: I10 Essential (primary) hypertension (principal) | CPT/HCPCS: 80053; 80061; 85025 ==

== ENCOUNTER → 2021-07-12 08:21 | Outpatient (BNVA) | payer MEDICARE, SELFPAY | PROVIDERS: PCP Nurse Practitioner; Visit Provider Nurse Practitioner | DX: D64.9 Anemia, unspecified (principal) | CPT/HCPCS: 83540 ==

== ENCOUNTER 2021-08-07 10:32 | Outpatient (CLI) | payer MEDICARE, SELFPAY ==
--- NOTE | 2021-08-07 11:00 | CT_ITS ---
WS: [id number] CT CHEST WITHOUT INTRAVENOUS CONTRAST HISTORY: R91.1 - Solitary pulmonary nodule TECHNIQUE: Contiguous 5 mm axial imaging performed on the thorax. Coronal and sagittal reformats are submitted. All CT scans at [facility] use at least one of these dose optimization techniques: automated exposure control; mA and/or kV adjustment per patient size (includes targeted exams where dose is matched to clinical indication); or iterative reconstruction. CONTRAST: None DLP: 707.36 mGy.cm COMPARISON: 01/06/2021 Lungs and central airway: Improved aeration throughout both lungs. Less reticular nodular interstitia l thickening in the periphery. Noncalcified 2 mm micronodule anterior RIGHT upper lobe. The 5 mm nodu le in the RIGHT lower lobe described on the prior study is slightly smaller in size with no increase. No new nodule or mass. No pneumonia. Pleura: Normal. No pleural effusion. Heart and pericardium: Normal size heart with no pericardial effusion. Mediastinum and sharee: Mediastinal and hilar lymph nodes have improved since the prior study. No enlar ging or new lymph nodes. Vessels: Very minimal atherosclerotic disease thoracic aorta. Normal size pulmonary artery. Chest wall and lower neck: No soft tissue masses. Upper abdomen: Small hiatal hernia. No adrenal mass. Visualized liver is heterogeneous but no mass id entified on this unenhanced study. Osseous structures: Increase in thoracic kyphosis. CT/CT chest wo con [id number] IMPRESSION: 1. No interval increase in size of the 5 mm RIGHT upper lobe pulmonary nodule. There is an additional micronodule in the RIGHT upper lobe which is also uncha nged. Recommend [address] follow-up. 2. Improved areas of pneumonitis in the periphery of both lungs. 3. Improved reactive lymphadenopathy described on the prior study.
== END 2021-08-07 10:33 | disposition home or self-care (01) ==
LOC: RAD 10:38
PROVIDERS: PCP Nurse Practitioner; Visit Provider Nurse Practitioner
DX: R91.1 Solitary pulmonary nodule (principal)
CPT/HCPCS: 71250

== ENCOUNTER 2021-08-28 07:51 | Outpatient (CLI) | payer MEDICARE, SELFPAY ==
--- NOTE | 2021-08-28 08:00 | MR_ITS ---
WS: [id number] MRI LEFT SHOULDER NONCONTRAST TECHNIQUE: Sagittal T2, coronal T1, T2 and proton density imaging. Axial gradient PDE imaging. CLINICAL INFORMATION: T14.8XXA - Other injury of unspecified body region, initi... COMPARISON: None. FINDINGS: Mild degenerative arthritis at the AC joint. Mild edema. Moderate downsloping acromion. Slight imping ement on the distal supraspinatus with mild tendinopathy. Small amount of subacromial/subdeltoid flui d. Tiny intrasubstance and undersurface tears involving the distal supraspinatus. Normal infraspinatus. Normal teres minor. Subscapularis is intact. Normal biceps tendon in the bicipi kailey groove. Normal glenoid labrum. Normal bone marrow signal in the humerus and glenoid. Intra-articu lar biceps tendon is intact. No other significant findings. MR/MR shoulder LT wo con* [id number] IMPRESSION: 1. 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 2. Slight impingement on the distal supraspinatus with tiny undersurface and i ntrasubstance tears involving the distal supraspinatus with tendinopathy. 3. Rotator cuff is otherwise intact. No high-grade rotator cuff tears. 4. Normal biceps tendon in the bicipital groove. Normal biceps labral anchor. 5. Intra-articular biceps tendon appears intact. 6. Normal bone marrow signal in the humerus and glenoid.
== END 2021-08-28 07:52 | disposition home or self-care (01) ==
PROVIDERS: PCP Nurse Practitioner; Visit Provider Specialist
DX: M25.512 Pain in left shoulder (principal); M19.012 Primary osteoarthritis, left shoulder
CPT/HCPCS: 73221

== ENCOUNTER → 2021-08-30 10:40 | Outpatient (BNVA) | payer MEDICARE, SELFPAY | PROVIDERS: PCP Nurse Practitioner; Visit Provider Specialist | DX: M75.02 Adhesive capsulitis of left shoulder (principal) | CPT/HCPCS: 20610; 99213 ==

== ENCOUNTER 2021-09-05 06:00 | Outpatient (RCR) | payer MEDICARE, SELFPAY | END 2021-09-05 23:55 | disposition home or self-care (01) | LOC: TPT 06:00 | PROVIDERS: PCP Nurse Practitioner; Referring Provider Specialist; Visit Provider Specialist | DX: M75.02 Adhesive capsulitis of left shoulder (principal) | CPT/HCPCS: 97110; 97162 ==

== ENCOUNTER 2021-09-06 06:00 | Outpatient (RCR) | payer MEDICARE, SELFPAY | END 2021-10-05 23:59 | disposition home or self-care (01) | LOC: TPT 06:00 | PROVIDERS: PCP Nurse Practitioner; Referring Provider Specialist; Visit Provider Specialist | DX: M75.02 Adhesive capsulitis of left shoulder (principal) | CPT/HCPCS: 97110; 97140 ==

== ENCOUNTER 2021-09-12 20:01 | Emergency (ER) | payer MEDICARE, SELFPAY ==
[2021-09-12 20:08] VITALS: BP 132/65; PULSE 73; RESP 16; TEMP 36.6; O2SAT 98; BMI 33.1
--- NOTE | 2021-09-13 00:08 | ED_ITS ---
HPI - Extremity Problem General: Chief complaint: Extremity Injury, Upper Stated complaint: injured R hand Time Seen by Provider: 09/13/21 00:08 History of Present Illness: Patient is a 65-year-old female comes to the ED with right hand swelling. Patient states that she noticed the swelling on dorsal aspect of right hand today after she was cleaning her oven. She denies any pain or injury besides potentially bumping her hand on the oven. She is currently on Plavix and has a history of a past DVT in left leg and history of stroke as well. Denies any chest pain, shortness of breath or hemoptysis. Associated symptoms: Deny chest pain, fever(s) or rash Review of Systems Const: Denies: fever(s), chills or fatigue Eyes: Denies: change in vision or eye discomfort ENMT: Denies: throat pain, odynophagia, nasal discharge or nasal congestion Card: Denies: chest pain, palpitations, edema, swelling of feet/ankles, dyspnea on exertion or orthopnea Resp: Denies: dyspnea, productive cough or non-productive cough GI: Denies: abdominal pain, nausea, vomiting, diarrhea, constipation or hematochezia : Denies: flank pain, dysuria or hematuria Musc: Reports: extremity swelling (Right hand swelling); Denies: neck pain or back pain Skin/Breast: Denies: rash or new lesions Neuro: Denies: headache(s), numbness in extremities or weakness in extremities PFS ED PFSH: Medical History WILFRIDO (generalized anxiety disorder) Headache History of COVID-19 12/01/20 History of DVT of lower extremity HLD (hyperlipidemia) HTN (hypertension) Lung nodule < 6cm on CT Status migrainosus TIA (transient ischemic attack) Surgical History History of hysterectomy Family History Other Hypertension Denies family history of Anesthesia complication Bleeding disorder Stroke Social History Smoking and tobacco status: former smoker Second hand smoke exposure: No Smoking risk assessment/counseling performed?: No Alcohol intake: never Desire information about alcohol rehabilitation?: No Counseling given: No Desire information about substance/drug rehabilitation?: No Counseling given: No Adopted: No Caregiver/support person: No Lives independently: Yes Household members: spouse Housing: House Marital status: Number of children: 3 service: No Current occupational status: unemployed History of recent travel: No Current gender identity: Female Physical Exam Const: COMMON NORMALS: no acute distress, patient oriented x3 and alert GENERAL APPEARANCE: cooperative and comfortable HENMT: COMMON NORMALS: normocephalic HEAD & SCALP: normocephalic MOUTH: Normal oral and palatal mucosa present THROAT: posterior oropharynx normal and uvula midline Neck/C-Spine: COMMON NORMALS: supple GENERAL: Yes normal visual inspection Resp: COMMON NORMALS: normal respiratory effort, No retractions, No use of accessory muscles and clear to auscultation bilaterally AUSCULTATION: clear to auscultation bilaterally Cardio: COMMON NORMALS: regular rate, regular rhythm, S1 normal heart sound present, S2 normal heart sound present, No gallops present (Cardio), No clicks present (Cardio), No murmurs present (Cardio) and Peripheral pulses 2+ throughout RATE: regular rate RHYTHM: regular rhythm HEART SOUNDS: S1 n ormal heart sound present and S2 normal heart sound present PERIPHERAL PULSES: Peripheral pulses 2+ throughout GI: COMMON NORMALS: Normal to inspection, nondistended, normoactive bowel sounds present, Soft to palpation, non-tender and no masses PALPATION: Yes Soft to palpation : COMMON NORMALS: Yes no CVA tenderness BLADDER/KIDNEY EXAM: Yes no CVA tenderness Back/Pelvis: COMMON NORMALS: no CVA tenderness Extremity: NARRATIVE EXTREMITY EXAM: Patient has a small hematoma and contusion on dorsal aspect of right hand. Nontender to palpation. Neuro: COMMON NORMALS: patient oriented x3 and moves all extremities SENSORIUM/ORIENTATION: Yes alert Skin: GENERAL SKIN EXAM: dry skin Course Vital Signs: Vital signs: Vital Signs Temperature 97.9 F 09/12/21 20:08 Pulse Rate 73 09/12/21 20:08 Respiratory Rate 16 09/12/21 20:08 Blood Pressure 132/65 09/12/21 20:08 Pulse Oximetry 98 09/12/21 20:08 MDM - Extremity (Nontraumatic) Medical Decision Making Patient is a 65-year-old female comes to the ED with swelling on right hand. Patient is currently on a blood thinner and says she was cleaning her oven today and then noticed the swelling on her right hand. Denies any pain and thinks she could have bumped her hand while cleaning. She does have a history of DVTs. Denies any chest pain, shortness of breath or hemoptysis. Vitals are stable. Exam shows a he return to work she reviewed left dorsal aspect of right hand. nontender to palpation. The rest of exam is benign. Ultrasound venous duplex of right upper extremity showed no DVTs or clots seen. Patient was diagnosed with hematoma and contusion of right hand and was discharged home. She is told to follow-up with her PCP in the next week for reevaluation. Return ED precautions given. Patient is done agree with plan. Lab Data Radiology Impressions Venous Duplex 09/13/21 00:12 IMPRESSION: 1. No evidence of acute right upper extremity DVT. 2. Other details discussed above. Discharge Plan Discharge Patient Disposition: Home Clinical Impression: Hematoma and contusion Condition: Stable Prescriptions: No Action (DME) Pulse oximetry See Rx Instructions .Route .MEDSUPPLY Qty: 1 0RF Rx Instructions: As directed (DME) nebulizer accessories Kit See Rx Instructions .Route Qty: 1 0RF Rx Instructions: As directed albuterol sulfate [Ventolin HFA] 90 mcg/actuation HFA aerosol inhaler 2 puff inhalation Q6H PRN (Reason: shortness of breath or wheezing) Qty: 8.5 2RF aspirin 81 mg tablet,delayed release (DR/EC) 81 mg PO DAILY Qty: 30 2RF Lipitor 40 mg tablet 40 mg PO DAILY Qty: 30 2RF Coreg 6.25 mg tablet 6.25 mg PO BID Qty: 60 2RF Rx Instructions: must administer with a meal/food clopidogrel 75 mg tablet 75 mg PO DAILY Qty: 30 2RF famotidine 20 mg tablet 20 mg PO BID Qty: 60 2RF furosemide [Lasix] 20 mg tablet 20 mg PO QAM Qty: 30 2RF lisinopril 20 mg tablet 20 mg PO BID Qty: 60 2RF sertraline [Zoloft] 50 mg tablet 50 mg PO DAILY Qty: 30 2RF topiramate 25 mg tablet 25 mg PO BID 30 Days Qty: 60 2RF meloxicam [Mobic] 15 mg tablet 15 mg PO DAILY Qty: 30 0RF (DME) Shoulder immobilizer See Rx Instructions .Route .MEDSUPPLY Qty: 1 0RF Rx Instructions: As directed (DME) compressor, for nebulizer Device See Rx Instructions .Route Qty: 1 0RF Rx Instructions: As directed albuterol sulfate 2.5 mg /3 mL (0.083 %) solution for nebulization 2.5 mg inhalation QID PRN (Reason: shortness of breath or wheezing) Qty: 180 0RF (DME) oxygen concentrator See Rx Instructions .Route .MEDSUPPLY Qty: 1 0RF Rx Instructions: As directed oxygen concentrator 2liters n/c nocturnal daily Tylenol PM Extra Strength 25-500 mg Tablet 1 tab PO BEDTIME 0RF Imodium A-D 2 mg tablet 2 mg PO Q4H PRN (Reason: loose stool) Qty: 20 0RF Rx Instructions: do not exceed 16 mg per 24 hrs Voltaren Arthritis Pain 1 % gel 4 g topical QID Qty: 100 0RF Rx Instructions: apply to single knee, ankle, foot; for foot includes sole/toes/top of foot Discharge Orders: Discharge ED (Routine); Ordered 09/13/21 Ordered By: Cristóbal Augustin Referrals: Tay Egan, NON DESTRUCTIVE TESTING SPECIALIST-C [Primary Care Provider] - Discharge Diet: Regular Discharge Activity: Increase activity as tolerated Activity Restrictions/Additional Instructions: Follow-up with medical provider as directed in the next 5 to 7 days reevaluation. Continue taking all home medications as previously prescribed. Return to the ER or your medical provider if condition worsens. Please read and understand discharge instructions. Thank you for choosing [facility] for your healthcare needs today. Please realize this is an emergency room and that we are providing you with a medical screening exam and this may not be complete and all inclusive of all the testing and or work up that you may need to determine your ailment or severity of your illness. It is very important that you follow up as instructed or that you return to the Emergency Department should you have concerns or if your condition changes or worsens in any way. Coding Level of Care Code ED Signals Intelligence Analysis Manager for Brian Fwmeliza Exam Comprehensive
--- NOTE | 2021-09-13 00:12 | USR_ITS ---
PROCEDURE INFORMATION: Exam: US Duplex Right Upper Extremity Veins, Limited Exam date and time: 09/13/2021 12:50 AM Age: 65 years old Clinical indication: Swelling (edema) of limb; Upper extremity, left; Additional info: Swelling in right hand, history of dvt TECHNIQUE: Imaging protocol: Real-time Duplex ultrasound of the Right Upper Extremity with 2-D fiore scale, color Doppler flow and spectral waveform analysis with image documentation. Limited exam focused on the right upper extremity veins. COMPARISON: No relevant prior studies available. FINDINGS: Evaluated veins include the internal jugular, subclavian, axillary, brachial, basilic, cephalic, radial, and ulnar veins. No visible clot in the included veins. The included veins appear normally compressible. Duplex Doppler evaluation demonstrates flow in the evaluated veins. US/[place] [id number] IMPRESSION: 1. No evidence of acute right upper extremity DVT. 2. Other details discussed above.
== END 2021-09-13 02:08 | disposition home or self-care (01) ==
PROVIDERS: Emergency Provider Physician Assistant; PCP Nurse Practitioner
DX: S60.221A Contusion of right hand, initial encounter (principal); Z86.718 Personal history of other venous thrombosis and embolism; Z87.891 Personal history of nicotine dependence; X58.XXXA Exposure to other specified factors, initial encounter; Z86.73 Personal history of transient ischemic attack (TIA), and cerebral infarction without residual deficits; Z79.02 Long term (current) use of antithrombotics/antiplatelets; Z79.82 Long term (current) use of aspirin
CPT/HCPCS: 93971; 99283

== ENCOUNTER 2021-10-06 06:00 | Outpatient (RCR) | payer MEDICARE, SELFPAY | END 2021-11-05 23:59 | disposition home or self-care (01) | LOC: TPT 06:00 | PROVIDERS: PCP Nurse Practitioner; Referring Provider Specialist; Visit Provider Specialist | DX: M75.02 Adhesive capsulitis of left shoulder (principal) | CPT/HCPCS: 97110; 97140 ==

== ENCOUNTER → 2021-11-06 14:23 | Outpatient (BNVA) | payer MEDICARE, SELFPAY | PROVIDERS: PCP Nurse Practitioner; Visit Provider Nurse Practitioner | DX: I10 Essential (primary) hypertension (principal); E55.9 Vitamin D deficiency, unspecified; J43.9 Emphysema, unspecified; I65.21 Occlusion and stenosis of right carotid artery; I63.511 Cerebral infarction due to unspecified occlusion or stenosis of right middle cerebral artery; R51.9 Headache, unspecified | CPT/HCPCS: 80053; 80061; 82306; 84443; 85025 ==

== ENCOUNTER → 2022-04-26 10:19 | Outpatient (BNVA) | payer MEDICARE, SELFPAY | PROVIDERS: PCP Nurse Practitioner; Visit Provider Nurse Practitioner | DX: I10 Essential (primary) hypertension (principal); R51.9 Headache, unspecified; I63.511 Cerebral infarction due to unspecified occlusion or stenosis of right middle cerebral artery; I65.21 Occlusion and stenosis of right carotid artery; J43.9 Emphysema, unspecified; J06.9 Acute upper respiratory infection, unspecified | CPT/HCPCS: 80053; 80061 ==

== ENCOUNTER → 2022-05-10 09:57 | Outpatient (BNVA) | payer MEDICARE, SELFPAY | PROVIDERS: PCP Nurse Practitioner | DX: I10 Essential (primary) hypertension (principal) | CPT/HCPCS: 71046 ==

== ENCOUNTER 2022-08-21 10:19 | Outpatient (CLI) | payer MEDICARE, OTHER, SELFPAY ==
--- NOTE | 2022-08-21 10:30 | CT_ITS ---
WS: [id number] LDCT LUNG CANCER SCREENING HISTORY: lung CA screening TECHNIQUE: Axial imaging performed from the apices to 1 cm below the costophrenic angles. Coronal and sagittal reformats are submitted with axial MIP series. All CT scans at [facility] use at least one of these dose optimization techniques: automated exposure control; mA and/or kV adjustment per patient size (includes targeted exams where dose is matched to clinical indication); or iterativ e reconstruction. DLP: 69.02 mGy.cm DIvol: Mean CTDIvol: 1.70 (mGy) COMPARISON: 08/07/2021 Diagnostic quality: Satisfactory Lungs: Hyperinflated lungs with emphysema. Previously described nodule periphery RIGHT upper lobe is not identified. No suspicious masses or nodules. Linear scar in the lingula. No endobronchial lesions . Heart: Normal size heart with no pericardial effusion.. Other findings: Atherosclerosis aorta. Small mediastinal and hilar lymph nodes measure up to 10 mm in diameter. No interval change. No adrenal mass. Mild increase in thoracic kyphosis. CT/CT lung screening [id number] IMPRESSION: LUNG-RADS: 1-Negative FOLLOW UP: 12 Month: Continue annual screening with LDCT OTHER FINDINGS (S MODIFIER): None.
== END 2022-08-21 10:20 | disposition home or self-care (01) ==
LOC: RAD 10:24
PROVIDERS: PCP Family Medicine; Visit Provider Family Medicine
DX: R91.1 Solitary pulmonary nodule (principal); F17.219 Nicotine dependence, cigarettes, with unspecified nicotine-induced disorders
CPT/HCPCS: 71271; 80053; 82306; 85025

== ENCOUNTER 2022-08-29 12:00 | Outpatient (CLI) | payer MEDICARE, SELFPAY | END 2022-08-29 12:01 | disposition home or self-care (01) | LOC: SLEEP 08-30 11:13 | PROVIDERS: PCP Family Medicine; Visit Provider Family Medicine | DX: G47.33 Obstructive sleep apnea (adult) (pediatric) (principal); G47.36 Sleep related hypoventilation in conditions classified elsewhere; R06.83 Snoring | CPT/HCPCS: G0399 ==

== ENCOUNTER → 2022-11-12 11:59 | Outpatient (BNVA) | payer MEDICARE, SELFPAY | PROVIDERS: PCP Family Medicine; Visit Provider Family Medicine | DX: E55.9 Vitamin D deficiency, unspecified (principal) | CPT/HCPCS: 82306 ==

== ENCOUNTER 2022-11-24 18:47 | Emergency (ER) | payer MEDICARE, SELFPAY ==
[2022-11-24 18:56] VITALS: BP 130/74; PULSE 104; RESP 18; TEMP 36.3; O2SAT 98; BMI 37.3
--- NOTE | 2022-11-24 20:00 | W.ED.ABDPA2 ---
HPI - Abdominal Pain General: Chief Complaint: Abdominal Pain Stated Complaint: abd pain/left side Time Seen by Provider: 11/24/22 19:40 Source: patient Mode of arrival: ambulatory History of Present Illness: Six 6-year-old female presents emergency room complaining intermittent abdominal pain for the last several hours. It comes and goes. She has not noticed anything that exacerbates or relieves it. No hematochezia melena hematemesis cough cramps no fever sweats or chills. Localizes most of the pain to the left lower quadrant no dysuria urgency or frequency. MD elicited complaint: abdominal pain Onset (ago): hour(s) Pain Consistency: constant Location: LLQ Severity: severe Quality: cramping Radiation: none Exacerbating factors: nothing Relieving factors: nothing Associated Symptoms: Reports nausea; Denies anorexia, belching, bloating, change in bowel habits, change in stool character, chills, coffee ground emesis, constipation, GI cramping, diarrhea, dyspepsia, dysuria, excessive flatus, fever(s), heartburn, hematochezia, hematuria, hematemesis, fecal incontinence, loose stools, melena, poor appetite and vomiting Review of Systems Const: Denies: fever(s) or chills Card: Denies: chest pain Resp: Denies: dyspnea, productive cough or non-productive cough GI: Reports: abdominal pain and nausea; Denies: vomiting, hematemesis, coffee ground emesis, heartburn, diarrhea, constipation, bloating, GI cramping, belching, excessive flatus, fecal incontinence, change in bowel habits, change in stool character, hematochezia or melena : Denies: dysuria or hematuria Skin/Breast: Denies: rash or pruritus PFS ED PFSH: Medical History WILFRIDO (generalized anxiety disorder) Headache History of COVID-19 12/01/20 History of DVT of lower extremity HLD (hyperlipidemia) HTN (hypertension) Lung nodule < 6cm on CT [place] (obstructive sleep apnea) Status migrainosus TIA (transient ischemic attack) Vitamin D deficiency Surgical History History of hysterectomy Family History Mother Cancer breast->bone Other Chronic kidney disease (CKD) Diabetes Heart disease Hypertension Lung disease Psychiatric illness Stroke Denies family history of Clotting disorder Dementia Hyperlipidemia Anesthesia complication Bleeding disorder Social History Smoking and tobacco status: former smoker Second hand smoke exposure: No Smoking risk assessment/counseling performed?: No Alcohol intake: never Desire information about alcohol rehabilitation?: No Counseling given: No Substance/Drug Use: never Desire information about substance/drug rehabilitation?: No Counseling given: No Adopted: No Caregiver/support person: No Lives independently: Yes Household members: spouse Housing: House Marital status: Number of children: 3 service: No Current occupational status: unemployed Do you think of yourself as: Straight/Heterosexual Current gender identity: Female Special perla needs: No Agree to transfusion: Yes Physical Exam Const: GENERAL APPEARANCE: cooperative and comfortable ORIENTATION/CONSCIOUSNESS: Yes awake, Yes oriented to person, Yes oriented to place and Yes oriented to time HENMT: COMMON NORMALS: normocephalic, atraumatic and hearing grossly normal bilaterally HEAD & SCALP: normocephalic and atraumatic Resp: COMMON NORMALS: normal respiratory effort, No retractions, No use of accessory muscles and clear to auscultation bilaterally AUSCULTATION: clear to auscultation bilaterally Cardio: COMMON NORMALS: regular rate, regular rhythm and No murmurs present (Cardio) RATE: regular rate RHYTHM: regular rhythm GI: COMMON NORMALS: Soft to palpation and No hepatosplenomegaly present AUSCULTATION: Yes normoactive bowel sounds PALPATION: Yes Soft to palpation, Yes Tenderness to palpation present (GI) Details: LLQ, No Guarding due to palpation present (GI) and Yes No hepatosplenomegaly present Extremity: COMMON NORMALS: normal to inspection, capillary refill normal, no clubbing, cyanosis or edema, no calf tenderness and no pedal edema Neuro: SENSORIUM/ORIENTATION: Yes oriented to person, Yes oriented to place and Yes oriented to time Skin: COMMON NORMALS: no rashes or lesions noted GENERAL SKIN EXAM: no rashes or lesions noted Course Vital Signs: Vital signs: Vital Signs Temperature 97.4 F L 11/24/22 18:56 Pulse Rate 83 11/24/22 20:25 Respiratory Rate 16 11/24/22 20:25 Blood Pressure 163/97 11/24/22 20:25 Pulse Oximetry 100 11/24/22 20:25 Oxygen Delivery Me thod Room Air 11/24/22 18:56 MDM - Abdominal Pain Medical Decision Making Labs and imaging reviewed white count normal CT does not show any diverticulitis does show fair amount of retained stool. We will treat as constipation if has any worsening or change symptoms develops fever return to the emergency room. UA reviewed no sign of contamination no sign of nephrolithiasis. Medical Records I reviewed the patient's medical records. Lab Data I reviewed the patient's lab results. 11/24/22 20:20 11/24/22 20:20 Labs/Radiology: Radiology Impressions Abdomen/Pelvis CT 11/24/22 20:05 IMPRESSION: No acute intra-abdominal or intrapelvic pathology. Laboratory Results WBC 9.5 10^3/uL (4.0-10.0) 11/24/22 20:20 RBC 3.69 10^6/uL (4.1-5.3) L 11/24/22 20:20 Hgb 10.9 g/dL (11.5-15.3) L 11/24/22 20:20 Hct 32.5 % (37.0-47.0) L 11/24/22 20:20 MCV 88.1 fl (81-99) 11/24/22 20:20 MCH 29.5 pg (28.0-34.0) 11/24/22 20:20 MCHC 33.5 g/dL (30.0-36.0) 11/24/22 20:20 RDW 13.4 % (12.1-15.1) 11/24/22 20:20 Plt Count 284 10^3/cmm (130-400) 11/24/22 20:20 MPV 10.4 fL (7.4-10.4) 11/24/22 20:20 Neut % (Auto) 47.2 % 11/24/22 20:20 Lymph % (Auto) 37.0 % 11/24/22 20:20 [place] % (Auto) 10.3 % 11/24/22 20:20 Eos % (Auto) 4.4 % 11/24/22 20:20 Baso % (Auto) 0.8 % 11/24/22 20:20 Neut # (Auto) 4.46 10^3/uL (1.8-7.7) 11/24/22 20:20 Lymph # (Auto) 3.5 10^3/uL (0.8-4.8) 11/24/22 20:20 [place] # (Auto) 1.0 10^3/uL (0.2-0.9) H 11/24/22 20:20 Eos # (Auto) 0.4 10^3/uL (0.0-0.8) 11/24/22 20:20 Baso # (Auto) 0.1 10^3/uL (0.0-0.1) 11/24/22 20:20 Nucleated RBC % (auto) 0 % 11/24/22 20:20 Nucleated RBCs # 0.0 /100WBC 11/24/22 20:20 Sodium 140 mmol/L (136-145) 11/24/22 20:20 Potassium 4.7 mmol/L (3.5-5.1) 11/24/22 20:20 Chloride 103 mmol/L (98-107) 11/24/22 20:20 Carbon Dioxide 27 mmol/L (22-29) 11/24/22 20:20 Anion Gap 14.7 (5-19) 11/24/22 20:20 BUN 28 mg/dL (8-23) H 11/24/22 20:20 Creatinine 1.2 mg/dL (0.5-0.9) H 11/24/22 20:20 GFR Calculation 44.8 mL/min (90-130) L 11/24/22 20:20 Glucose 91 mg/dL (65-115) 11/24/22 20:20 Calculated Osmolality 295 mOsm/kg (285-295) 11/24/22 20:20 Calcium 9.2 mg/dL (8.5-10.5) 11/24/22 20:20 Total Bilirubin 0.2 mg/dL (0.15-1.2) 11/24/22 20:20 AST 16 U/L (0-32) 11/24/22 20:20 ALT 16 U/L (0-33) 11/24/22 20:20 Alkaline Phosphatase 81 U/L (35-105) 11/24/22 20:20 Total Protein 7.2 g/dL (6.6-8.7) 11/24/22 20:20 Albumin 4.2 g/dL (3.5-5.2) 11/24/22 20:20 Globulin 3.0 g/dL (1.3-4.6) 11/24/22 20:20 Urine Color Other (Yellow) 11/24/22 20:01 Urine Appearance Clear (CLEAR) 11/24/22 20:01 Urine pH 5 (5-7) 11/24/22 20:01 Ur Specific [place] 1.020 (1.005-1.030) 11/24/22 20:01 Urine Protein Neg (Negative) 11/24/22 20:01 Urine Glucose (UA) Norm (Normal) 11/24/22 20:01 Urine Ketones 1+ (Negative) H 11/24/22 20:01 Urine Blood 2+ (Negative) H 11/24/22 20:01 Urine Nitrate Negative (Negative) 11/24/22 20:01 Urine Bilirubin 1+ (Negative) H 11/24/22 20:01 Urine Urobilinogen 1 mg/dL (Negative) H 11/24/22 20:01 Ur Leukocyte Esterase Negative (Negative) 11/24/22 20:01 Urine RBC 0-4 /hpf (0-2) H 11/24/22 20:01 Urine WBC 0-4 /hpf (0-5) H 11/24/22 20:01 Ur Squamous Epith Cells 0-4 /hpf (0-5) H 11/24/22 20:01 Amorphous Sediment Not Reportable 11/24/22 20:01 Urine Bacteria 1+ /hpf (NONE) H 11/24/22 20:01 Discharge Plan Discharge Patient Disposition: Home Clinical Impression: Abdominal pain, Constipation Condition: Stable Prescriptions: No Action (DME) Pulse oximetry See Rx Instructions .Route .MEDSUPPLY Qty: 1 0RF Rx Instructions: As directed (DME) nebulizer accessories Kit See Rx Instructions .Route Qty: 1 0RF Rx Instructions: As directed ezetimibe 10 mg tablet 10 mg PO DAILY Qty: 60 1RF omeprazole 40 mg capsule,delayed release(DR/EC) 40 mg PO DAILY Qty: 90 1RF aspirin 81 mg tablet,delayed release (DR/EC) 81 mg PO DAILY Qty: 30 2RF albuterol sulfate [Ventolin HFA] 90 mcg/actuation HFA aerosol inhaler 2 puff inhalation Q6H PRN (Reason: shortness of breath or wheezing) Qty: 8.5 2RF ergocalciferol (vitamin D2) [Vitamin D2] 1,250 mcg (50,000 unit) capsule 1,250 mcg PO .qweekly 56 Days Qty: 8 0RF (DME) compressor, for nebulizer Device See Rx Instructions .Route Qty: 1 0RF Rx Instructions: As directed (DME) CPAP 14cm See Rx Instructions .Route .MEDSUPPLY Qty: 1 0RF Rx Instructions: As directed (DME) CPAP mask, tubing, supplies See Rx Instructions .Route .MEDSUPPLY Qty: 1 1RF Rx Instructions: As directed lisinopril 20 mg tablet 20 mg PO BID Qty: 180 1RF Rx Instructions: need apt furosemide [Lasix] 20 mg tablet 20 mg PO QAM Qty: 30 0RF Tylenol PM Extra Strength 25-500 mg Tablet 1 tab PO BEDTIME Discharge Orders: Discharge ED (Routine); Ordered 11/24/22 Ordered By: Gaston Gomez Referrals: Rik Trotter MD [Primary Care Provider] - Patient Instructions: Constipation (ED), Opioid Safety, Pain Management Coding Level of Care Code ED Throw Out Clerk for Brian Francois
--- NOTE | 2022-11-24 20:05 | CTR_ITS ---
PROCEDURE INFORMATION: Exam: CT Abdomen And Pelvis With Contrast Exam date and time: 11/24/2022 8:42 PM Age: 66 years old Clinical indication: Abdominal pain; Generalized; Prior surgery; Surgery date: 6+ months; Surgery type: Hysterectomy; Patient HX: Diffuse abd pain TECHNIQUE: Imaging protocol: Computed tomography of the abdomen and pelvis with contrast. Radiation optimization: All CT scans at this facility use at least one of these dose optimization techniques: automated exposure control; mA and/or kV adjustment per patient size (includes targeted exams where dose is matched to clinical indication); or iterative reconstruction. Contrast material: OMNI 350; Contrast volume: 100 ml; Contrast route: INTRAVENOUS (IV); REPORTING DATA: Count of CT and Cardiac NM exams in prior 12 months: This patient has received [address] and 0 known cardiac nuclear medicine studies in the 12 months prior to the current study. COMPARISON: CT lung screening [id number] 08/21/2022 10:44 AM RADIATION DOSE METRICS: Total DLP (mGy-cm): 846.5 FINDINGS: Lungs: Minimal streaky bibasilar atelectasis. Tiny calcified granuloma noted in the left lower lobe. Tiny subpleural lymph node noted in the right middle lobe. No consolidation. Heart: Normal heart size. Coronary atherosclerotic calcifications seen. No pericardial effusion. Liver: Normal. No mass. Gallbladder and bile ducts: Normal. No calcified stones. No ductal dilation. Pancreas: Normal. No ductal dilation. Spleen: A small accessory splenule is noted in the left upper quadrant. The spleen is unremarkable. Adrenal glands: Normal. No mass. Kidneys and ureters: Normal. No hydronephrosis. Stomach and bowel: There is diverticulosis without evidence of diverticulitis. Appendix: No evidence of appendicitis. Intraperitoneal space: Unremarkable. No free air. No significant fluid collection. Vasculature: Mild diffuse atherosclerotic disease is present. Lymph nodes: No lymphadenopathy. Urinary bladder: Unremarkable as visualized. Reproductive: The uterus is surgically absent. Bones/joints: Degenerative changes of the spine seen. Soft tissues: Unremarkable. CT/CT abdomen pelvis w con* [id number] IMPRESSION: No acute intra-abdominal or intrapelvic pathology.
[2022-11-24 20:09] LABS: Add Urine Culture? No; Add Urine Microscopic? YES; Bacteria Urine 1+ /hpf; Bilirubin Urine 1+ (Negative); Blood Urine 2+ (Negative); Glucose Urine UA Norm (Normal); Ketones Urine 1+ (Negative); Leukocyte Esterase Urine Negative (Negative); Nitrate Urine Negative (Negative); Protein Urine Neg (Negative); RBC Urine 0-4 /hpf (0-2); Squamous Epithelial Cell Urine 0-4 /hpf (0-5); Urine Appearance Clear (CLEAR); Urine Color Other (Yellow); Urobilinogen Urine 1 mg/dL (Negative); WBC Urine 0-4 /hpf (0-5); pH Urine 5 (5-7)
[2022-11-24 20:25] VITALS: BP 163/97; PULSE 83; RESP 16; O2SAT 100
[2022-11-24 20:30] LABS: Basophils # 0.1 10^3/uL (0.0-0.1); Basophils % 0.8 %; Eosinophils # 0.4 10^3/uL (0.0-0.8); Eosinophils % 4.4 %; Hematocrit 32.5 % (37.0-47.0); Hemoglobin 10.9 g/dL (11.5-15.3); Lymphocytes # 3.5 10^3/uL (0.8-4.8); Mean Corpuscular HGB Conc 33.5 g/dL (30.0-36.0); Mean Corpuscular Hemoglobin 29.5 pg (28.0-34.0); Mean Corpuscular Volume 88.1 fl (81-99); Mean Platelet Volume 10.4 fL (7.4-10.4); Monocytes % 10.3 %; Neutrophils # 4.46 10^3/uL (1.8-7.7); Neutrophils % 47.2 %; Nucleated Red Blood Cells % 0 %; Platelet Count 284 10^3/cmm (130-400); Red Blood Count 3.69 10^6/uL (4.1-5.3); Red Cell Distribution Width 13.4 % (12.1-15.1); White Blood Count 9.5 10^3/uL (4.0-10.0)
[2022-11-24] MEDS: iohexol 350 mg/mL 500 mL Btl (per mL) IV (20:43)
[2022-11-24 20:46] LABS: Alanine Aminotransferase 16 U/L (0-33); Albumin Level 4.2 g/dL (3.5-5.2); Alkaline Phosphatase 81 U/L (35-105); Anion Gap 14.7 (5-19); Aspartate Amino Transferase 16 U/L (0-32); Blood Urea Nitrogen 28 mg/dL (8-23); Calcium 9.2 mg/dL (8.5-10.5); Carbon Dioxide 27 mmol/L (22-29); Chloride 103 mmol/L (98-107); Glomerular Filtration Rate 44.8 mL/min (90-130); Glucose 91 mg/dL (65-115); Osmolality Calculated 295 mOsm/kg (285-295); Potassium 4.7 mmol/L (3.5-5.1); Sodium 140 mmol/L (136-145); Total Bilirubin 0.2 mg/dL (0.15-1.2); Total Protein 7.2 g/dL (6.6-8.7)
== END 2022-11-24 22:08 | disposition home or self-care (01) ==
PROVIDERS: Physician Assistant; Emergency Provider Family Medicine; PCP Family Medicine
DX: K59.00 Constipation, unspecified (principal); R10.9 Unspecified abdominal pain; Z79.82 Long term (current) use of aspirin; Z87.891 Personal history of nicotine dependence; E78.5 Hyperlipidemia, unspecified; I10 Essential (primary) hypertension; Z86.73 Personal history of transient ischemic attack (TIA), and cerebral infarction without residual deficits; R10.32 Left lower quadrant pain
CPT/HCPCS: 36415; 74177; 80053; 81001; 85025; 87040; 99285; Q9967

== ENCOUNTER 2023-05-11 11:42 | Emergency (ER) | payer MEDICARE, SELFPAY ==
[2023-05-11 11:52] VITALS: BP 151/64; PULSE 75; RESP 18; TEMP 36.8; O2SAT 95; BMI 36.3
[2023-05-11 13:57] VITALS: PULSE 83; O2SAT 96
--- NOTE | 2023-05-11 14:36 | CTR_ITS ---
PROCEDURE INFORMATION: Exam: CT Head Without Contrast Exam date and time: 05/11/2023 3:16 PM Age: 67 years old Clinical indication: Pain; Headache; Additional info: Headache persistent TECHNIQUE: Imaging protocol: Computed tomography of the head without contrast. Radiation optimization: All CT scans at this facility use at least one of these dose optimization techniques: automated exposure control; mA and/or kV adjustment per patient size (includes targeted exams where dose is matched to clinical indication); or iterative reconstruction. COMPARISON: MR angio head wo con [id number] 10/03/2020 11:19 AM RADIATION DOSE METRICS: Total DLP (mGy-cm): 1049.08 FINDINGS: Brain: Diffuse cerebral atrophy, consistent with patient's age. No hemorrhage. No evidence of acute territorial infarction. 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 Mild background cerebral white matter hypodensities likely on the basis of chronic microvascular ischemic change. No mass effect. Cerebral ventricles: Stable mild lateral ventricular asymmetry. Pituitary gland and sella: Partially empty sella. Paranasal sinuses: Visualized sinuses are unremarkable. No fluid levels. Mastoid air cells: Visualized mastoid air cells are well aerated. Bones/joints: Unremarkable. No acute fracture. Soft tissues: Unremarkable. Vasculature: Bilateral ICA calcifications. CT/CT head wo con* [id number] IMPRESSION: No acute intracranial findings.
[2023-05-11 15:00] VITALS: PULSE 84; O2SAT 95
[2023-05-11] MEDS: ondansetron 2 mg/ML SDV 2 mL 4 MG IVP (15:06)
[2023-05-11] MEDS: sodium chloride 0.9% 1,000 ML 999 ML IV (15:06)
[2023-05-11] MEDS: diphenhydrAMINE 50 mg/mL SDV 1mL 12.5 MG IVP (15:08)
[2023-05-11 15:15] LABS: Basophils # 0.1 10^3/uL (0.0-0.1); Basophils % 0.8 %; Eosinophils # 0.2 10^3/uL (0.0-0.8); Eosinophils % 1.7 %; Hematocrit 35.7 % (36-47); Lymphocytes # 2.5 10^3/uL (0.8-4.8); Lymphocytes % 28.6 %; Mean Corpuscular HGB Conc 31.4 g/dL (30-55); Mean Corpuscular Hemoglobin 29.2 pg (27-33); Mean Platelet Volume 9.9 fL (7.4-10.4); Monocytes # 0.6 10^3/uL (0.2-0.9); Monocytes % 7.1 %; Neutrophils # 5.28 10^3/uL (1.8-7.7); Neutrophils % 61.5 %; Nucleated Red Blood Cells % 0 %; Platelet Count 333 10^3/cmm (157-399); Red Blood Count 3.84 10^6/uL (3.85-5.65); Red Cell Distribution Width 13.2 % (12.1-15.1)
--- NOTE | 2023-05-11 15:18 | ED_ITS ---
HPI - Headache 2 General: Chief Complaint: Headache Stated Complaint: headache, nausea Time Seen by Provider: 05/11/23 12:00 History of Present Illness: 67 year old female presents to the ER wi th a chief complaint of headache feeling under the weather cough congestion sore throat with some nausea has been ongoing last 4 days patient does not report any recent sick or ill contacts patient is underneath a significant mount of stress as noted per her 's ER currently moving patient has not since any recent trauma nor falls patient presents to the ER with family present for further assessment and management she did take some extra strength Tylenol prior to arrival with minimal improvement of her symptoms. Associated symptoms: Reports malaise; Deny chest pain, fever(s), nausea, rash or vomiting Review of Systems 2 General: Reports: 10 or more systems reviewed and unremarkable except in HPI and below Const: Reports: fatigue and malaise; Denies: fever(s) or chills Eyes: Denies: change in vision or blurry vision Card: Denies: chest pain or palpitations Resp: Denies: dyspnea or productive cough GI: Denies: abdominal pain, nausea or vomiting : Denies: flank pain Musc: Denies: extremity pain or extremity swelling Skin/Breast: Denies: rash or pruritus Neuro: Reports: headache(s) Psych: Denies: anxiety or depression Seb/Lymph: Denies: easy bleeding All/Imm: Denies: urticaria, throat swelling or facial swelling PFSH ED 2 PFSH: Medical History [place] (obstructive sleep apnea) Vitamin D deficiency Lung nodule < 6cm on CT History of COVID-19 12/01/20 WILFRIDO (generalized anxiety disorder) History of DVT of lower extremity Status migrainosus HLD (hyperlipidemia) HTN (hypertension) Headache TIA (transient ischemic attack) Surgical History History of hysterectomy Family History Mother Cancer breast->bone Other Chronic kidney disease (CKD) Diabetes Heart disease Hypertension Lung disease Psychiatric illness Stroke Denies family history of Clotting disorder Dementia Hyperlipidemia Anesthesia complication Bleeding disorder Social History Smoking and tobacco/nicotine status: former use of tobacco/nicotine Second hand smoke exposure: No Alcohol intake: never Substance/Drug Use: never Adopted: No Caregiver/support person: No Lives independently: Yes Household members: spouse Housing: House Marital status: Number of children: 3 service: No Current occupational status: unemployed Do you think of yourself as: Straight/Heterosexual Current gender identity: Female Special perla needs: No Agree to transfusion: Yes Physical Exam 2 Const: COMMON NORMALS: no acute distress, patient oriented x3 and healthy appearing HENMT: COMMON NORMALS: normocephalic and atraumatic HEAD & SCALP: n ormocephalic and atraumatic Eye: COMMON NORMALS: Equal, round and reactive pupils present and EOMs intact bilaterally PUPIL: Yes Equal, round and reactive pupils present Neck/C-Spine: COMMON NORMALS: full ROM, supple and no JVD Lymph: LYMPHATIC: no lymphadenopathy noted Chest: COMMONS NORMALS: normal inspection of the chest and normal palpation of entire chest wall Resp: COMMON NORMALS: normal respiratory effort, No retractions and clear to auscultation bilaterally EFFORT & INSPECTION: Yes able to speak in complete sentences and Yes symmetric chest movement AUSCULTATION: clear to auscultation bilaterally Cardio: COMMON NORMALS: no JVD, regular rate and regular rhythm RATE: r egular rate RHYTHM: regular rhythm GI: COMMON NORMALS: Normal to inspection, nondistended, normoactive bowel sounds present, Soft to palpation and non-tender INSPECTION: Yes normal to inspection PALPATION: Yes Soft to palpation : COMMON NORMALS: Yes no CVA tenderness BLADDER/KIDNEY EXAM: Yes no CVA tenderness Back/Pelvis: COMMON NORMALS: no CVA tenderness Extremity: COMMON NORMALS: normal to inspection and full ROM Neuro: COMMON NORMALS: patient oriented x3, CN's II-XII intact bilaterally, moves all extremities and no focal motor deficits Psych: COMMON NORMALS: mental status grossly normal, Normal thought process present, cooperative and normal affect THOUGHT PROCESS: Normal thought process present Skin: COMMON NORMALS: no rashes or lesions noted GENERAL SKIN EXAM: no rashes or lesions noted Course 2 Vital Signs: Vital signs: Vital Signs Temperature 98.2 F 05/11/23 11:52 Pulse Rate 75 05/11/23 11:52 Respiratory Rate 18 05/11/23 11:52 Blood Pressure 151/64 05/11/23 11:52 Pulse Oximetry 95 05/11/23 11:52 Oxygen Delivery Me thod Room Air 05/11/23 11:52 MDM - Headache Medical Decision Making Due to patient's symptoms and condition IV established IV fluids provided for duration with lab work and imaging obtained medication was provided for the patient's headache we will continue to follow. Patient's lab work and imaging came back reassuring still pending a COVID swab advised by staff this to be another 2 to 3-hour wait offered to keep the patient observation status until that results we can contact the patient back in which she and her agreed that she would like to be contacted in regards to results once they return patient will be treated for her headache patient advised for further follow-up with primary care as needed in 2 to 3 days in which she was advised return the interim if any of her symptoms persist or worse. Lab Data 05/11/23 15:06 05/11/23 15:[address] 05/11/23 14:36 IMPRESSION: No acute intracranial findings. Laboratory Results WBC 8.60 10^3/uL (3.29-11.43) 05/11/23 15:06 RBC 3.84 10^6/uL (3.85-5.65) L 05/11/23 15:06 Hgb 11.20 g/dL (11.27-16.99) L 05/11/23 15:06 Hct 35.7 % (36-47) L 05/11/23 15:06 MCV 93.0 fl (85-98) 05/11/23 15:06 MCH 29.2 pg (27-33) 05/11/23 15:06 MCHC 31.4 g/dL (30-55) 05/11/23 15:06 RDW 13.2 % (12.1-15.1) 05/11/23 15:06 Plt Count 333 10^3/cmm (157-399) 05/11/23 15:06 MPV 9.9 fL (7.4-10.4) 05/11/23 15:06 Neut % (Auto) 61.5 % 05/11/23 15:06 Lymph % (Auto) 28.6 % 05/11/23 15:06 [place] % (Auto) 7.1 % 05/11/23 15:06 Eos % (Auto) 1.7 % 05/11/23 15:06 Baso % (Auto) 0.8 % 05/11/23 15:06 Neut # (Auto) 5.28 10^3/uL (1.8-7.7) 05/11/23 15:06 Lymph # (Auto) 2.5 10^3/uL (0.8-4.8) 05/11/23 15:06 [place] # (Auto) 0.6 10^3/uL (0.2-0.9) 05/11/23 15:06 Eos # (Auto) 0.2 10^3/uL (0.0-0.8) 05/11/23 15:06 Baso # (Auto) 0.1 10^3/uL (0.0-0.1) 05/11/23 15:06 Nucleated RBC % (auto) 0 % 05/11/23 15:06 Nucleated RBCs # 0.0 /100WBC 05/11/23 15:06 Sodium 140 mmol/L (136-145) 05/11/23 15:06 Potassium 4.6 mmol/L (3.5-5.1) 05/11/23 15:06 Chloride 102 mmol/L (98-107) 05/11/23 15:06 Carbon Dioxide 27 mmol/L (22-29) 05/11/23 15:06 Anion Gap 15.6 (5-19) 05/11/23 15:06 BUN 15 mg/dL (8-23) 05/11/23 15:06 Creatinine 1.0 mg/dL (0.5-0.9) H 05/11/23 15:06 GFR Calculation 55.1 mL/min (90-130) L 05/11/23 15:06 Glucose 98 mg/dL (65-115) 05/11/23 15:06 Calculated Osmolality 291 mOsm/kg (285-295) 05/11/23 15:06 Calcium 9.7 mg/dL (8.5-10.5) 05/11/23 15:06 Total Bilirubin 0.4 mg/dL (0.15-1.2) 05/11/23 15:06 AST 17 U/L (0-32) 05/11/23 15:06 ALT 14 U/L (0-33) 05/11/23 15:06 Alkaline Phosphatase 94 U/L (35-105) 05/11/23 15:06 C-Reactive Protein 7.9 mg/L (0.0-4.9) H 05/11/23 15:06 Total Protein 7.3 g/dL (6.6-8.7) 05/11/23 15:06 Albumin 4.0 g/dL (3.5-5.2) 05/11/23 15:06 Globulin 3.3 g/dL (1.3-4.6) 05/11/23 15:06 Urine Color Colorless (Yellow) 05/11/23 16:08 Urine Appearance Clear (CLEAR) 05/11/23 16:08 Urine pH 7 (5-7) 05/11/23 16:08 Ur Specific [place] 1.000 (1.005-1.030) L 05/11/23 16:08 Urine Protein Neg (Negative) 05/11/23 16:08 Urine Glucose (UA) Norm (Normal) 05/11/23 16:08 Urine Ketones Negative (Negative) 05/11/23 16:08 Urine Blood Neg (Negative) 05/11/23 16:08 Urine Nitrate Negative (Negative) 05/11/23 16:08 Urine Bilirubin Neg (Negative) 05/11/23 16:08 Urine Urobilinogen Norm mg/dL (Negative) 05/11/23 16:08 Ur Leukocyte Esterase Negative (Negative) 05/11/23 16:08 All radiology interpretation(s) finalized by discharge Discharge Plan Discharge Patient Disposition: Home Clinical Impression: Acute viral syndrome Headache Qualifiers: Headache type: unspecified Headache chronicity pattern: acute headache Condition: Stable Prescriptions: New ondansetron 4 mg tablet,disintegrating 4 mg PO Q8H PRN (Reason: nausea and vomiting) Qty: 30 0RF tramadol 50 mg tablet 50 mg PO Q8H PRN (Reason: pain) Qty: 20 0RF prednisone 20 mg tablet 20 mg PO BID 5 Days Qty: 10 0RF No Action (DME) Pulse oximetry See Rx Instructions .Route .MEDSUPPLY Qty: 1 0RF Rx Instructions: As directed (DME) nebulizer accessories Kit See Rx Instructions .Route Qty: 1 0RF Rx Instructions: As directed aspirin 81 mg tablet,delayed release (DR/EC) 81 mg PO DAILY Qty: 30 2RF albuterol sulfate [Ventolin HFA] 90 mcg/actuation HFA aerosol inhaler 2 puff inhalation Q6H PRN (Reason: shortness of breath or wheezing) Qty: 8.5 2RF ergocalciferol (vitamin D2) [Vitamin D2] 1,250 mcg (50,000 unit) capsule 1,250 mcg PO .qweekly 56 Days Qty: 8 0RF (DME) compressor, for nebulizer Device See Rx Instructions .Route Qty: 1 0RF Rx Instructions: As directed (DME) CPAP 14cm See Rx Instructions .Route .MEDSUPPLY Qty: 1 0RF Rx Instructions: As directed (DME) CPAP mask, tubing, supplies See Rx Instructions .Route .MEDSUPPLY Qty: 1 1RF Rx Instructions: As directed omeprazole 40 mg capsule,delayed release(DR/EC) 40 mg PO DAILY Qty: 90 1RF ezetimibe 10 mg tablet 10 mg PO DAILY Qty: 90 1RF furosemide [Lasix] 20 mg tablet 20 mg PO QAM Qty: 90 1RF lisinopril 20 mg tablet 20 mg PO BID Qty: 120 1RF Tylenol PM Extra Strength 25-500 mg Tablet 1 tab PO BEDTIME Discharge Orders: Discharge ED (Routine); Ordered 05/11/23 Ordered By: Tommie Alvarez Referrals: Rik Trotter MD [Primary Care Provider] - 1-3 days Discharge Activity: Increase activity as tolerated Patient Instructions: Acute Headache (ED), Opioid Safety, Pain Management, Viral Syndrome - Adult Activity Restrictions/Additional Instructions: Please further follow-up your primary care doctor in 2 to 3 days, please take medications as prescribed in which please return in the interim if any of your symptoms persist or worse. Your COVID tests are currently pending if they are indeed positive you will be contacted on the numbers provided to ER registration. If you have any additional concerns please contact the ER for your results in the next 2 to 3 hours. Coding Level of Care Code ED Photography Intern for Brian Francois
[2023-05-11 15:33] LABS: Alanine Aminotransferase 14 U/L (0-33); Alkaline Phosphatase 94 U/L (35-105); Anion Gap 15.6 (5-19); Aspartate Amino Transferase 17 U/L (0-32); Blood Urea Nitrogen 15 mg/dL (8-23); C Reactive Protein 7.9 mg/L (0.0-4.9); Calcium 9.7 mg/dL (8.5-10.5); Carbon Dioxide 27 mmol/L (22-29); Chloride 102 mmol/L (98-107); Globulin 3.3 g/dL (1.3-4.6); Glomerular Filtration Rate 55.1 mL/min (90-130); Glucose 98 mg/dL (65-115); Osmolality Calculated 291 mOsm/kg (285-295); Potassium 4.6 mmol/L (3.5-5.1); Sodium 140 mmol/L (136-145); Total Bilirubin 0.4 mg/dL (0.15-1.2); Total Protein 7.3 g/dL (6.6-8.7)
[2023-05-11 16:22] LABS: Add Urine Microscopic? NO; Charge for UA Resulting for Rev
[2023-05-11 16:23] LABS: Bilirubin Urine Neg (Negative); Blood Urine Neg (Negative); Glucose Urine UA Norm (Normal); Ketones Urine Negative (Negative); Leukocyte Esterase Urine Negative (Negative); Nitrate Urine Negative (Negative); Protein Urine Neg (Negative); Urine Appearance Clear (CLEAR); Urine Color Colorless (Yellow); Urobilinogen Urine Norm (Negative); pH Urine 7 (5-7)
[2023-05-11 17:44] VITALS: BP 138/63; PULSE 82; O2SAT 97
[2023-05-11 18:03] LABS: Adenovirus Not Detected (NOT DETECT); Chlamydia Pneumoniae Not Detected (NOT DETECT); Human Metapneumovirus Not Detected (NOT DETECT); Human Rhinovirus/Enterovirus Not Detected (NOT DETECT); Influenza A Not Detected (NOT DETECT); Influenza A H1 Not Detected (NOT DETECT); Influenza A H1-2009 Not Detected (NOT DETECT); Influenza A H3 Not Detected (NOT DETECT); Influenza B Not Detected (NOT DETECT); Mycoplasma Pneumoniae Not Detected (NOT DETECT); Parainfluenza Virus Type 1 Not Detected (NOT DETECT); Parainfluenza Virus Type 2 Not Detected (NOT DETECT); Parainfluenza Virus Type 3 Not Detected (NOT DETECT); Parainfluenza Virus Type 4 Not Detected (NOT DETECT); Respiratory Syncytial Virus A Not Detected (NOT DETECT); Respiratory Syncytial Virus B Not Detected (NOT DETECT); SARS-COV-2 Not Detected (NOT DETECT)
[2023-05-11 18:20] LABS: Coronavirus 229E,HKU1,NL63,OC4 Detected (NOT DETECT)
== END 2023-05-11 18:03 | disposition home or self-care (01) ==
PROVIDERS: Emergency Provider Emergency Medicine; PCP Family Medicine
DX: B34.9 Viral infection, unspecified (principal); R51.9 Headache, unspecified; Z79.82 Long term (current) use of aspirin; E78.5 Hyperlipidemia, unspecified; I10 Essential (primary) hypertension; Z86.73 Personal history of transient ischemic attack (TIA), and cerebral infarction without residual deficits; Z87.891 Personal history of nicotine dependence; Z11.52 Encounter for screening for COVID-19
CPT/HCPCS: 70450; 80053; 81003; 85025; 86140; 87635; 96374; 96375; 99285; J1200; J2405; J7030

== ENCOUNTER 2023-08-08 18:28 | Emergency (ER) | payer MEDICARE, SELFPAY ==
[2023-08-08 19:05] VITALS: BP 187/93; PULSE 94; RESP 16; TEMP 36.4; O2SAT 94
--- NOTE | 2023-08-08 19:13 | XRR_ITS ---
PROCEDURE INFORMATION: Exam: XR Left Wrist Exam date and time: 08/08/2023 8:40 PM Age: 67 years old Clinical indication: Injury or trauma; Fall; Other: Unknown TECHNIQUE: Imaging protocol: Radiologic exam of the left wrist. Views: 3 or more views. COMPARISON: CR (UP EXM, ) 08/08/2023 8:40 PM FINDINGS: Bones/joints: Dislocation of the 1st proximal phalanx relative to the 1st metacarpal in the radial direction. Negative for fracture seen. Diffuse moderate interphalangeal joint osteoarthritis. Soft tissues: Normal. XR/XR wrist LT min 3V* [id number] IMPRESSION: 1. Dislocation of the 1st proximal phalanx relative to the 1st metacarpal in the radial direction. Negative for fracture seen. 2. Diffuse moderate interphalangeal joint osteoarthritis.
--- NOTE | 2023-08-08 19:13 | XRR_ITS ---
PROCEDURE INFORMATION: Exam: XR Left Hand Exam date and time: 08/08/2023 8:40 PM Age: 67 years old Clinical indication: Injury or trauma; Fall; Other: Unknown TECHNIQUE: Imaging protocol: Radiologic exam of the left hand. Views: 3 or more views. COMPARISON: CR (UP EXM, ) 08/08/2023 8:40 PM FINDINGS: Bones/joints: Dislocation of the 1st proximal phalanx relative to the 1st metacarpal in the radial direction, somewhat decreased compared to prior exam. Negative for fracture seen. Diffuse moderate interphalangeal joint osteoarthritis. Soft tissues: Normal. XR/XR hand LT min 3V* [id number] IMPRESSION: 1. Dislocation of the 1st proximal phalanx relative to the 1st metacarpal in the radial direction, somewhat decreased compared to prior exam. Negative for fracture seen. 2. Diffuse moderate interphalangeal joint osteoarthritis.
--- NOTE | 2023-08-08 19:32 | W.ED.EXTPRO ---
HPI - Extremity Problem General: Chief complaint: Extremity Injury, Upper Stated complaint: Fell Left arm hand Injury Time Seen by Provider: 08/08/23 19:25 Source: patient Mode of arrival: ambulatory Limitations: no limitations History of Present Illness: 67-year-old female who had a fall just prior to arrival states she fell onto her left hand injured her left thumb she appears to have a dislocation of her left thumb. Denies any other injuries at this time denies hitting her head she rates her pain a 7 out of 10 currently Associated symptoms: Deny chest pain, fever(s) or rash Review of Systems Const: Denies: fever(s), chills, body aches or change in appetite ENMT: Denies: throat pain or dental pain Card: Denies: chest pain Resp: Denies: dyspnea GI: Denies: abdominal pain, nausea, vomiting or diarrhea Musc: Reports: extremity pain; Denies: neck pain or back pain Skin/Breast: Denies: rash Neuro: Denies: headache(s) PFSH ED PFSH: Medical History Seborrheic dermatitis [place] (obstructive sleep apnea) Vitamin D deficiency Lung nodule < 6cm on CT History of COVID-19 12/01/20 W[place]FR[place] (generalized anxiety disorder) History of DVT of lower extremity Status migrainosus HLD (hyperlipidemia) HTN (hypertension) Headache TIA (transient ischemic attack) Surgical History History of hysterectomy Family History Mother Cancer breast->bone Other Chronic kidney disease (CKD) Diabetes Heart disease Hypertension Lung disease Psychiatric illness Stroke Denies family history of Clotting disorder Dementia Hyperlipidemia Anesthesia complication Bleeding disorder Social History Smoking and tobacco/nicotine status: former use of tobacco/nicotine Second hand smoke exposure: No Alcohol intake: never Substance/Drug Use: never Adopted: No Caregiver/support person: No Lives independently: Yes Household members: spouse Housing: House Marital status: Number of children: 3 service: No Current occupational status: unemployed Do you think of yourself as: Straight/Heterosexual Current gender identity: Female Special perla needs: No Agree to transfusion: Yes Physical Exam Const: COMMON NORMALS: no acute distress, patient oriented x3 and healthy appearing HENMT: COMMON NORMALS: normocephalic and atraumatic HEAD & SCALP: normocephalic and atraumatic Neck/C-Spine: COMMON NORMALS: full ROM and supple Chest: COMMONS NORMALS: normal inspection of the chest Resp: COMMON NORMALS: normal respiratory effort Cardio: COMMON NORMALS: regular rate RATE: regular rate Extremity: COMMON NORMALS: full ROM NARRATIVE EXTREMITY EXAM: Obvious deformity left thumb Neuro: COMMON NORMALS: patient oriented x3, moves all extremities and no focal motor deficits Psych: COMMON NORMALS: mental status grossly normal, Normal thought process present and cooperative THOUGHT PROCESS: Normal thought process present Skin: COMMON NORMALS: no rashes or lesions noted and no wounds GENERAL SKIN EXAM: no rashes or lesions noted Procedures Orthopedic Joint Reduction Joint #1: Time Out Performed: Yes Side: left Joint Reduction Location: other (thumb) Analgesia: nerve block Local Anesthesia: bupivacaine 0.5% Amount of anesthesic used (mL): 10 Technique used: traction/counter-traction Post-reduction neuro exam: intact Post-reduction vascular: intact Post Reduction X-Ray Obtained: Yes Post Reduction X-Ray Results: reduced Splint Applied: Yes Patient Tolerated Procedure: well Course Vital Signs: Vital signs: Vital Signs Temperature 97.5 F L 08/08/23 19:05 Pulse Rate 80 08/08/23 20:30 Respiratory Rate 18 08/08/23 20:30 Blood Pressure 168/82 08/08/23 20:30 Pulse Oximetry 97 08/08/23 20:30 Oxygen Delivery Me thod Room Air 08/08/23 20:30 MDM - Extremity (Nontraumatic) Medical Decision Making Patient presents here with left thumb dislocation was able to reduce the thumb she still having some pain possible little chip fracture will place in a thumb spica care follow-up with orthopedics for repeat x-ray Medical Records I reviewed the patient's medical records. XR interpretation done by ED provider, pending radiology final review ED provider radiology interpretation(s): xr L hand: thumb dislocation Discharge Plan Discharge Patient Disposition: Home Clinical Impression: Closed dislocation of left thumb Qualifiers: Encounter type: initial encounter Qualified Code(s): S63.105A - Unspecified dislocation of left thumb, initial encounter Condition: Stable Prescriptions: New hydrocodone-acetaminophen 5-325 mg tablet 1 tab PO Q6H PRN (Reason: pain) Qty: 14 0RF No Action (DME) Pulse oximetry See Rx Instructions .Route .MEDSUPPLY Qty: 1 0RF Rx Instructions: As directed (DME) nebulizer accessories Kit See Rx Instructions .Route Qty: 1 0RF Rx Instructions: As directed aspirin 81 mg tablet,delayed release (DR/EC) 81 mg PO DAILY Qty: 30 2RF albuterol sulfate [Ventolin HFA] 90 mcg/actuation HFA aerosol inhaler 2 puff inhalation Q6H PRN (Reason: shortness of breath or wheezing) Qty: 8.5 2RF ergocalciferol (vitamin D2) [Vitamin D2] 1,250 mcg (50,000 unit) capsule 1,250 mcg PO .qweekly 56 Days Qty: 8 0RF (DME) compressor, for nebulizer Device See Rx Instructions .Route Qty: 1 0RF Rx Instructions: As directed (DME) CPAP 14cm See Rx Instructions .Route .MEDSUPPLY Qty: 1 0RF Rx Instructions: As directed (DME) CPAP mask, tubing, supplies See Rx Instructions .Route .MEDSUPPLY Qty: 1 1RF Rx Instructions: As directed ezetimibe 10 mg tablet 10 mg PO DAILY Qty: 90 1RF lisinopril 20 mg tablet 20 mg PO BID Qty: 120 1RF omeprazole 40 mg capsule,delayed release(DR/EC) 40 mg PO DAILY Qty: 90 1RF furosemide [Lasix] 20 mg tablet 20 mg PO QAM Qty: 90 1RF Tylenol PM Extra Strength 25-500 mg Tablet 1 tab PO BEDTIME ondansetron 4 mg tablet,disintegrating 4 mg PO Q8H PRN (Reason: nausea and vomiting) Qty: 30 0RF tramadol 50 mg tablet 50 mg PO Q8H PRN (Reason: pain) Qty: 20 0RF Discharge Orders: Discharge ED (Routine); Ordered 08/08/23 Ordered By: Miya Minor Referrals: Maksim Waterman DO [Physician] - 1-3 days Rik Trotter MD [Primary Care Provider] - Discharge Diet: Advance as tolerated Discharge Activity: Resume usual activity Patient Instructions: Finger Dislocation (ED), Opioid Safety Coding Level of Care Code ED Key Account Manager for Brian Francosi
[2023-08-08] MEDS: HYDROcodone-acetaminophen 7.5-325 mg Tablet 1 TAB PO (20:03)
[2023-08-08 20:08] VITALS: BP 172/95; PULSE 78; RESP 18; O2SAT 97
[2023-08-08 20:30] VITALS: BP 168/82; PULSE 80; RESP 18; O2SAT 97
--- NOTE | 2023-08-08 20:50 | XRR_ITS ---
PROCEDURE INFORMATION: Exam: XR Left Hand Exam date and time: 08/08/2023 8:50 PM Age: 67 years old Clinical indication: Injury or trauma; Fall; Other: Unknown; Additional info: Post reduction TECHNIQUE: Imaging protocol: Radiologic exam of the left hand. Views: 3 or more views. COMPARISON: CR ( EX, ) 08/08/2023 8:40 PM FINDINGS: Bones/joints: Reduction of the previously seen 1st metacarpophalangeal joint dislocation, with a possible punctate avulsion fracture seen along the palmar aspect of the joint. Soft tissues: Normal. XR/XR hand LT 2V [id number] IMPRESSION: Reduction of the previously seen 1st metacarpophalangeal joint dislocation, with a possible punctate avulsion fracture seen along the palmar aspect of the joint.
[2023-08-08] MEDS: HYDROcodone-acetaminophen 5-325 mg Tablet 1 TAB PO (21:38)
[2023-08-08 21:40] VITALS: BP 181/86; PULSE 83; O2SAT 98
--- NOTE | 2023-08-10 16:27 | DCPLANNER ---
sent a followup request to ortho [id number] @[phone]
== END 2023-08-08 21:42 | disposition home or self-care (01) ==
PROVIDERS: Emergency Provider Emergency Medicine; PCP Family Medicine
DX: S63.105A Unspecified dislocation of left thumb, initial encounter (principal); Z79.82 Long term (current) use of aspirin; Z87.891 Personal history of nicotine dependence; E78.5 Hyperlipidemia, unspecified; I10 Essential (primary) hypertension; Z86.73 Personal history of transient ischemic attack (TIA), and cerebral infarction without residual deficits; W19.XXXA Unspecified fall, initial encounter
CPT/HCPCS: 26700; 73110; 73120; 73130; 99283

== ENCOUNTER 2023-08-30 18:51 | Emergency (ER) | payer MEDICARE, SELFPAY ==
[2023-08-30 18:57] VITALS: BP 163/78; PULSE 78; RESP 16; TEMP 36.7; O2SAT 99
--- NOTE | 2023-08-30 20:05 | XRR_ITS ---
PROCEDURE INFORMATION: Exam: XR Left Hand Exam date and time: 08/30/2023 8:10 PM Age: 67 years old Clinical indication: Finger(s); Left; Patient HX: C/O persistent pain to first digit post dislocation one month ago. ; Additional info: 1st mcp pain/previous dislocation x1 month TECHNIQUE: Imaging protocol: Radiologic exam of the left hand. Views: 3 or more views. COMPARISON: 1. CR (UP EXM, ) 08/08/2023 8:40 PM 2. CR (UP EXM, ) 08/08/2023 8:50 PM FINDINGS: Bones/joints: Small ossific and calcific densities adjacent to volar and ulnar aspects of 1st metacarpal head similar to prior. No dislocation. Carpal boss noted on lateral view. Joint spacing and alignment are otherwise maintained. Mild degenerative change throughout the IP joints. Soft tissues: Unremarkable. XR/XR hand LT min 3V* [id number] IMPRESSION: 1. Small ossific and calcific densities adjacent to volar and ulnar aspects of 1st metacarpal head may represent small fracture fragments from recent dislocation. 2. Carpal boss.
--- NOTE | 2023-08-30 20:09 | W.ED.EXTPRO ---
Documented by User: GUILLERMINA Man 08/30/23 21:18 HPI - Extremity Problem General: Chief complaint: Extremity Problem,Nontraumatic Stated complaint: Left hand swelling Time Seen by Provider: 08/30/23 19:56 Source: patient Mode of arrival: ambulatory Limitations: no limitations History of Present Illness: Patient is a 67-year-old female presenting to the emergency department complaining of left thumb pain onset 1 month. Patient initially injured it while falling, was seen in the emergency department and diagnosed with dislocation. Reduction was successfully performed, and patient was placed in a splint and told to follow-up with orthopedics. She did not do so, as they stated they could not see hands here at the time and referred her to [facility]. Patient did not follow-up on this, and states she removed her cast yesterday. This is when onset of pain increased, and she notes she has pain with any range of motion of the left thumb. She is tender to palpation over the first MCP, and denies any relief from Tylenol. She states she primarily wants x-ray to make sure it is not redislocated, and she has no other injuries or recent trauma to the hand. No distal neurovascular symptoms at this time. No other symptoms to report. MD Complaint: extremity pain (thumb) Onset (ago): month(s) Location: left Radiation: none Associated symptoms: Deny chest pain, fever(s) or rash Review of Systems General: Reports: 10 or more systems reviewed and unremarkable except in HPI and below Const: Denies: fever(s), chills or fatigue Eyes: Denies: change in vision ENMT: Denies: throat pain, ear or mastoid pain or nasal discharge Card: Denies: chest pain, palpitations, swelling of feet/ankles or lightheadedness Resp: Denies: dyspnea, productive cough or wheezing GI: Denies: abdominal pain, nausea, vomiting, diarrhea or constipation : Denies: flank pain, difficulty voiding, dysuria or urinary frequency Musc: Reports: extremity pain (Left thumb) and extremity swelling (Left thumb); Denies: neck pain, back pain or joint pain Skin/Breast: Denies: rash Neuro: Denies: headache(s), numbness in extremities or weakness in extremities PFS ED PFSH: Medical History Seborrheic dermatitis [place] (obstructive sleep apnea) Vitamin D deficiency Lung nodule < 6cm on CT History of COVID-19 12/01/20 WILFRIDO (generalized anxiety disorder) History of DVT of lower extremity Status migrainosus HLD (hyperlipidemia) HTN (hypertension) Headache TIA (transient ischemic attack) Surgical History History of hysterectomy Family History Mother Cancer breast->bone Other Chronic kidney disease (CKD) Diabetes Heart disease Hypertension Lung disease Psychiatric illness Stroke Denies family history of Clotting disorder Dementia Hyperlipidemia Anesthesia complication Bleeding disorder Social History Smoking and tobacco/nicotine status: former use of tobacco/nicotine Second hand smoke exposure: No Alcohol intake: never Substance/Drug Use: never Adopted: No Caregiver/support person: No Lives independently: Yes Household members: spouse Housing: House Marital status: Number of children: 3 service: No Current occupational status: unemployed Do you think of yourself as: Straight/Heterosexual Current gender identity: Female Special perla needs: No Agree to transfusion: Yes Physical Exam Const: COMMON NORMALS: no acute distress, patient oriented x3 and no limitations GENERAL APPEARANCE: cooperative, comfortable and well developed ORIENTATION/CONSCIOUSNESS: Yes awake, Yes oriented to person, Yes oriented to place and Yes oriented to time HENMT: COMMON NORMALS: normocephalic, atraumatic and hearing grossly normal bilaterally HEAD & SCALP: normocephalic and atraumatic Eye: COMMON NORMALS: Equal, round and reactive pupils present, EOMs intact bilaterally and conjunctivae normal CONJUNCTIVA: Yes conjunctivae normal PUPIL: Yes Equal, round and reactive pupils present Neck/C-Spine: COMMON NORMALS: full ROM, supple and no JVD Resp: COMMON NORMALS: normal respiratory effort, No retractions, No use of accessory muscles and clear to auscultation bilaterally AUSCULTATION: clear to auscultation bilaterally Cardio: COMMON NORMALS: no JVD, regular rate, regular rhythm, No clicks present (Cardio), No murmurs present (Cardio) and No rub (Cardio) RATE: regular rate RHYTHM: regular rhythm Extremity: NARRATIVE EXTREMITY EXAM: Mild amount of edema noted over the first MCP. She has pain with all range of motion of the thumb, though has 5/5 strength. No distal neurovascular deficits. No ecchymosis or signs of trauma. No anatomical snuffbox tenderness. Neuro: COMMON NORMALS: patient oriented x3, moves all extremities, no focal motor deficits and no sensory deficits noted SENSORIUM/ORIENTATION: Yes oriented to person, Yes oriented to place and Yes oriented to time Psych: COMMON NORMALS: mental status grossly normal and Normal thought process present THOUGHT PROCESS: Normal thought process present Skin: COMMON NORMALS: no rashes or lesions noted GENERAL SKIN EXAM: no rashes or lesions noted Course Vital Signs: Vital signs: Vital Signs Temperature 98.1 F 08/30/23 21:31 Pulse Rate 72 08/30/23 21:31 Respiratory Rate 16 08/30/23 21:31 Blood Pressure 142/80 08/30/23 21:31 Pulse Oximetry 98 08/30/23 21:31 Oxygen Delivery Me thod Room Air 08/30/23 18:57 MDM - Extremity (Nontraumatic) Medical Decision Making Patient was seen for acute on chronic left thumb pain. Initial injury occurred a month ago when she fell, had a dislocation reduced in the emergency department and splinted, was told to follow-up with Ortho but did not. She presents as she states she took her splint off yesterday, has had increasing pain. X-ray of the hand demonstrated some chronic findings of calcified fracture fragments, however no acute dislocation. I will refer patient to orthopedics again for her to follow-up with, possibly for placement in outpatient therapy. Informed her that she can continue doing gentle range of motion exercises as tolerated, and can use ice and Tylenol for added relief. Reasons to return discussed, and patient will follow-up as instructed. Lab Data Radiology Impressions Hand X-Ray 08/30/23 20:05 IMPRESSION: 1. Small ossific and calcific densities adjacent to volar and ulnar aspects of 1st metacarpal head may represent small fracture fragments from recent dislocation. 2. Carpal boss. All radiology interpretation(s) finalized by discharge Discharge Plan Discharge Patient Disposition: Home Clinical Impression: Chronic pain of left thumb Condition: Stable Prescriptions: No Action (DME) Pulse oximetry See Rx Instructions .Route .mVisumLY Qty: 1 0RF Rx Instructions: As directed (DME) nebulizer accessories Kit See Rx Instructions .Route Qty: 1 0RF Rx Instructions: As directed aspirin 81 mg tablet,delayed release (DR/EC) 81 mg PO DAILY Qty: 30 2RF albuterol sulfate [Ventolin HFA] 90 mcg/actuation HFA aerosol inhaler 2 puff inhalation Q6H PRN (Reason: shortness of breath or wheezing) Qty: 8.5 2RF ergocalciferol (vitamin D2) [Vitamin D2] 1,250 mcg (50,000 unit) capsule 1,250 mcg PO .qweekly 56 Days Qty: 8 0RF (DME) compressor, for nebulizer Device See Rx Instructions .Route Qty: 1 0RF Rx Instructions: As directed (DME) CPAP 14cm See Rx Instructions .Route .MEDSUPPLY Qty: 1 0RF Rx Instructions: As directed (DME) CPAP mask, tubing, supplies See Rx Instructions .Route .MEDSUPPLY Qty: 1 1RF Rx Instructions: As directed lisinopril 20 mg tablet 20 mg PO BID Qty: 120 1RF omeprazole 40 mg capsule,delayed release(DR/EC) 40 mg PO DAILY Qty: 90 1RF furosemide [Lasix] 20 mg tablet 20 mg PO QAM Qty: 90 1RF ezetimibe 10 mg tablet See Rx Instructions .ROUTE .COMPLEX Qty: 90 0RF Dose Instruction: Take 1 tablet by mouth once daily Rx Instructions: Take 1 tablet by mouth once daily Tylenol PM Extra Strength 25-500 mg Tablet 1 tab PO BEDTIME ondansetron 4 mg tablet,disintegrating 4 mg PO Q8H PRN (Reason: nausea and vomiting) Qty: 30 0RF tramadol 50 mg tablet 50 mg PO Q8H PRN (Reason: pain) Qty: 20 0RF hydrocodone-acetaminophen 5-325 mg tablet 1 tab PO Q6H PRN (Reason: pain) Qty: 14 0RF Discharge Orders: Discharge ED (Routine); Ordered 08/30/23 Ordered By: Adithya Juan Referrals: Rik Trotter MD [Primary Care Provider] - Discharge Diet: Usual diet Discharge Activity: Increase activity as tolerated Patient Instructions: Finger Sprain (ED) Activity Restrictions/Additional Instructions: Follow-up with orthopedics as discussed. Gentle range of motion exercises as tolerated. Use ice for any pain or swelling, and take your Tylenol at home. Please return with any new or concerning symptoms. Coding Level of Care Code ED Decal Applier for Chg Fwd Documented by User: Gaston Gomez DO 09/08/23 16:35 HPI - Extremity Problem General: Chief complaint: Extremity Problem,Nontraumatic Stated complaint: Left hand swelling Time Seen by Provider: 08/30/23 19:56 PFSH ED PFSH: Medical History Seborrheic dermatitis [place] (obstructive sleep apnea) Vitamin D deficiency Lung nodule < 6cm on CT History of COVID-19 12/01/20 WILFRIDO (generalized anxiety disorder) History of DVT of lower extremity Status migrainosus HLD (hyperlipidemia) HTN (hypertension) Headache TIA (transient ischemic attack) Surgical History History of hysterectomy Family History Mother Cancer breast->bone Other Chronic kidney disease (CKD) Diabetes Heart disease Hypertension Lung disease Psychiatric illness Stroke Denies family history of Clotting disorder Dementia Hyperlipidemia Anesthesia complication Bleeding disorder Social History Smoking and tobacco/nicotine status: former use of tobacco/nicotine Second hand smoke exposure: No Alcohol intake: never Substance/Drug Use: never Adopted: No Caregiver/support person: No Lives independently: Yes Household members: spouse Housing: House Marital status: Number of children: 3 service: No Current occupational status: unemployed Do you think of yourself as: Straight/Heterosexual Current gender identity: Female Special perla needs: No Agree to transfusion: Yes Course Vital Signs: Vital signs: Vital Signs Temperature 98.1 F 08/30/23 21:31 Pulse Rate 72 08/30/23 21:31 Respiratory Rate 16 08/30/23 21:31 Blood Pressure 142/80 08/30/23 21:31 Pulse Oximetry 98 08/30/23 21:31 Oxygen Delivery Me thod Room Air 08/30/23 18:57 MDM - Extremity (Nontraumatic) Medical Decision Making Patient was seen for acute on chronic left thumb pain. Initial injury occurred a month ago when she fell, had a dislocation reduced in the emergency department and splinted, was told to follow-up with Ortho but did not. She presents as she states she took her splint off yesterday, has had increasing pain. X-ray of the hand demonstrated some chronic findings of calcified fracture fragments, however no acute dislocation. I will refer patient to orthopedics again for her to follow-up with, possibly for placement in outpatient therapy. Informed her that she can continue doing gentle range of motion exercises as tolerated, and can use ice and Tylenol for added relief. Reasons to return discussed, and patient will follow-up as instructed. Chart reviewed Medical Records I reviewed the patient's medical records. Lab Data I reviewed the patient's lab results. Radiology Impressions Hand X-Ray 08/30/23 20:05 IMPRESSION: 1. Small ossific and calcific densities adjacent to volar and ulnar aspects of 1st metacarpal head may represent small fracture fragments from recent dislocation. 2. Carpal boss. Discharge Plan Discharge Patient Disposition: Home Clinical Impression: Chronic pain of left thumb Condition: Stable Prescriptions: No Action (DME) Pulse oximetry See Rx Instructions .Route .MEDSUPPLY Qty: 1 0RF Rx Instructions: As directed (DME) nebulizer accessories Kit See Rx Instructions .Route Qty: 1 0RF Rx Instructions: As directed aspirin 81 mg tablet,delayed release (DR/EC) 81 mg PO DAILY Qty: 30 2RF albuterol sulfate [Ventolin HFA] 90 mcg/actuation HFA aerosol inhaler 2 puff inhalation Q6H PRN (Reason: shortness of breath or wheezing) Qty: 8.5 2RF ergocalciferol (vitamin D2) [Vitamin D2] 1,250 mcg (50,000 unit) capsule 1,250 mcg PO .qweekly 56 Days Qty: 8 0RF (DME) compressor, for nebulizer Device See Rx Instructions .Route Qty: 1 0RF Rx Instructions: As directed (DME) CPAP 14cm See Rx Instructions .Route .MEDSUPPLY Qty: 1 0RF Rx Instructions: As directed (DME) CPAP mask, tubing, supplies See Rx Instructions .Route .MEDSUPPLY Qty: 1 1RF Rx Instructions: As directed lisinopril 20 mg tablet 20 mg PO BID Qty: 120 1RF omeprazole 40 mg capsule,delayed release(DR/EC) 40 mg PO DAILY Qty: 90 1RF furosemide [Lasix] 20 mg tablet 20 mg PO QAM Qty: 90 1RF ezetimibe 10 mg tablet See Rx Instructions .ROUTE .COMPLEX Qty: 90 0RF Dose Instruction: Take 1 tablet by mouth once daily Rx Instructions: Take 1 tablet by mouth once daily Tylenol PM Extra Strength 25-500 mg Tablet 1 tab PO BEDTIME ondansetron 4 mg tablet,disintegrating 4 mg PO Q8H PRN (Reason: nausea and vomiting) Qty: 30 0RF tramadol 50 mg tablet 50 mg PO Q8H PRN (Reason: pain) Qty: 20 0RF hydrocodone-acetaminophen 5-325 mg tablet 1 tab PO Q6H PRN (Reason: pain) Qty: 14 0RF Discharge Orders: Discharge ED (Routine); Ordered 08/30/23 Ordered By: Adithya Juan Referrals: Rik Trotter MD [Primary Care Provider] - Discharge Diet: Usual diet Discharge Activity: Increase activity as tolerated Patient Instructions: Finger Sprain (ED) Activity Restrictions/Additional Instructions: Follow-up with orthopedics as discussed. Gentle range of motion exercises as tolerated. Use ice for any pain or swelling, and take your Tylenol at home. Please return with any new or concerning symptoms. Coding Level of Care Code ED Decal Applier for Brian Francois
[2023-08-30 21:31] VITALS: BP 142/80; PULSE 72; RESP 16; TEMP 36.7; O2SAT 98
--- NOTE | 2023-08-31 07:20 | DCPLANNER ---
Sent follow up request to the ortho clinic 08/31/23 [id number]
== END 2023-08-30 21:32 | disposition home or self-care (01) ==
PROVIDERS: Emergency Provider Physician Assistant; PCP Family Medicine
DX: G89.29 Other chronic pain (principal); M79.645 Pain in left finger(s); Z79.82 Long term (current) use of aspirin; Z87.891 Personal history of nicotine dependence; E78.5 Hyperlipidemia, unspecified; I10 Essential (primary) hypertension; Z86.73 Personal history of transient ischemic attack (TIA), and cerebral infarction without residual deficits
CPT/HCPCS: 73130; 99283

== ENCOUNTER 2023-09-10 08:08 | Outpatient (CLI) | payer MEDICARE, SELFPAY ==
--- NOTE | 2023-09-10 09:00 | CT_ITS ---
WS: [id number] LDCT LUNG CANCER SCREENING HISTORY: lung cancer screening TECHNIQUE: Axial imaging performed from the apices to 1 cm below the costophrenic angles. Coronal and sagittal reformats are submitted with axial MIP series. All CT scans at [facility] use at least one of these dose optimization techniques: automated exposure control; mA and/or kV adjustment per patient size (includes targeted exams where dose is matched to clinical indication); or iterativ e reconstruction. DLP: 75.00 mGy.cm DIvol: Mean CTDIvol: 1.90 (mGy) COMPARISON: 08/21/2022, 08/07/2021 Diagnostic quality: Satisfactory Lungs: Moderate pulmonary hyperexpansion. No new mass or pulmonary nodule. There are a few small micr onodules scattered throughout the lungs and a few calcified granulomas. Subcentimeter subtle groundgl ass attenuation in the central RIGHT upper lobe. Perifissural nodule RIGHT minor fissure. Heart: Normal size heart with no pericardial effusion.. Other findings: Mild atherosclerosis thoracic aorta. Normal size pulmonary artery. There is several R IGHT paratracheal lymph nodes. The clustered together is 1.5 cm. Similar to 08/21/2022. These lymph no linda are measuring slightly greater then normal but with no obvious progression. Some of the lymph nod es contain calcification. Negative adrenal glands. Increase in thoracic kyphosis. CT/CT lung screening [id number] IMPRESSION: LUNG-RADS: 2-Benign Appearance or Behavior FOLLOW UP: 12 Month: Continue annual screening with LDCT OTHER FINDINGS (S MODIFIER): None.
== END 2023-09-10 08:09 | disposition home or self-care (01) ==
LOC: RAD 08:09
PROVIDERS: PCP Family Medicine; Visit Provider Family Medicine
DX: Z12.2 Encounter for screening for malignant neoplasm of respiratory organs (principal); F17.219 Nicotine dependence, cigarettes, with unspecified nicotine-induced disorders; R91.8 Other nonspecific abnormal finding of lung field; J84.10 Pulmonary fibrosis, unspecified; I89.8 Other specified noninfective disorders of lymphatic vessels and lymph nodes; M40.204 Unspecified kyphosis, thoracic region
CPT/HCPCS: 71271

== ENCOUNTER 2023-11-03 09:18 | Emergency (ER) | payer MEDICARE, SELFPAY ==
[2023-11-03] VITALS (34 sets, daily range): BP systolic 126–161; BP diastolic 66–102; PULSE 75–93; RESP 17–27; TEMP 36.8; O2SAT 90–100
--- NOTE | 2023-11-03 09:24 | XRR_ITS ---
PROCEDURE INFORMATION: Exam: XR Chest Exam date and time: 11/03/2023 9:40 AM Age: 67 years old Clinical indication: Shortness of breath; Additional info: SOB TECHNIQUE: Imaging protocol: Radiologic exam of the chest. Views: 1 view. COMPARISON: CT lung screening [id number] 09/10/2023 8:42 AM FINDINGS: Lungs: No pulmonary consolidation. Pleural spaces: No pleural effusion. No pneumothorax. Heart/Mediastinum: The cardiac silhouette is the proximally unchanged. No gross evidence of pneumomediastinum. Diaphragm: Mild persistent elevation of the right hemidiaphragm. Bones/joints: No gross fracture. XR/XR chest 1V portable [id number] IMPRESSION: No acute cardiopulmonary abnormality identified.
--- NOTE | 2023-11-03 09:31 | ECG_ITS ---
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 Measurements Intervals [place] Rate: 86 P: 55 OK: 163 QRS: 11 QRSD: 73 T: 54 QT: 337 QTc: 404 Interpretive Statements SINUS RHYTHM LOW QRS VOLTAGE IN PRECORDIAL LEADS [QRS DEFLECTION < 1.0 mV IN CHEST LEADS] POSSIBLE ANTERIOR MYOCARDIAL INFARCTION , PROBABLY OLD [30 ms Q WAVE IN V3/V4, OR R < 0.2 mV IN V4] Compared to ECG 08/24/2020 05:18:03 Low QRS voltage now present Electronically Signed On 11-03-2023 11:57:14 CDT by Jossie Waters M.D. [email or web address]
--- NOTE | 2023-11-03 09:43 | ED_ITS ---
HPI - SOB/Dyspnea 2 General: Chief Complaint: Shortness of Breath/Dyspnea Stated Complaint: sob, high bp Time Seen by Provider: 11/03/23 09:23 Source: patient Mode of arrival: ambulatory Limitations: no limitations History of Present Illness: HPI Narrative: 67-year-old female states that she been feeling short of breath since last night. She states she just feels like she cannot get a breath she does appear quite anxious here pulse ox here is in the 90s. She denies any cough she had some slight pain she has had hypertension as well she states she took a Lasix lisinopril this morning denies any fevers. Associated symptoms: Deny abdominal pain, chest pain, fever(s), nausea or vomiting Review of Systems 2 Const: Denies: fever(s), chills, body aches or change in appetite Eyes: Denies: eye discomfort ENMT: Denies: throat pain or dental pain Card: Denies: chest pain Resp: Reports: dyspnea GI: Denies: abdominal pain, nausea, vomiting or diarrhea Musc: Denies: neck pain or back pain Skin/Breast: Denies: rash Neuro: Denies: headache(s) PFSH ED 2 PFSH: Medical History Seborrheic dermatitis [place] (obstructive sleep apnea) Vitamin D deficiency Lung nodule < 6cm on CT History of COVID-19 12/01/20 [place] (generalized anxiety disorder) History of DVT of lower extremity Status migrainosus HLD (hyperlipidemia) HTN (hypertension) Headache TIA (transient ischemic attack) Surgical History History of hysterectomy Family History Mother Cancer breast->bone Other Chronic kidney disease (CKD) Diabetes Heart disease Hypertension Lung disease Psychiatric illness Stroke Denies family history of Clotting disorder Dementia Hyperlipidemia Anesthesia complication Bleeding disorder Social History Smoking and tobacco/nicotine status: former use of tobacco/nicotine Second hand smoke exposure: No Alcohol intake: never Substance/Drug Use: never Adopted: No Caregiver/support person: No Lives independently: Yes Household members: spouse Housing: House Marital status: Number of children: 3 service: No Current occupational status: unemployed Do you think of yourself as: Straight/Heterosexual Current gender identity: Female Special perla needs: No Agree to transfusion: Yes Physical Exam 2 Const: COMMON NORMALS: no acute distress, patient oriented x3 and healthy appearing HENMT: COMMON NORMALS: normocephalic and atraumatic HEAD & SCALP: n ormocephalic and atraumatic Neck/C-Spine: COMMON NORMALS: full ROM and supple Chest: COMMONS NORMALS: normal inspection of the chest Resp: COMMON NORMALS: normal respiratory effort, No retractions, No use of accessory muscles and clear to auscultation bilaterally AUSCULTATION: clear to auscultation bilaterally Cardio: COMMON NORMALS: regular rate, regular rhythm and No murmurs present (Cardio) RATE: regular rate RHYTHM: regular rhythm GI: COMMON NORMALS: Normal to inspection, nondistended, normoactive bowel sounds present, Soft to palpation, non-tender and no masses PALPATION: Yes Soft to palpation Extremity: COMMON NORMALS: normal to inspection and full ROM Neuro: COMMON NORMALS: patient oriented x3, moves all extremities and no focal motor deficits Psych: COMMON NORMALS: mental status grossly normal, Normal thought process present and cooperative THOUGHT PROCESS: Normal thought process present Skin: COMMON NORMALS: no rashes or lesions noted and no wounds GENERAL SKIN EXAM: no rashes or lesions noted Course 2 Vital Signs: Vital signs: Vital Signs Temperature 98.3 F 11/03/23 09:33 Pulse Rate 82 11/03/23 09:40 Blood Pressure 161/82 11/03/23 09:40 Pulse Oximetry 97 11/03/23 09:40 Oxygen Delivery Me thod Room Air 11/03/23 09:33 MDM - SOB/Dyspnea Medical Decision Making Patient presents here with cough dyspnea likely bronchitis CTA chest showed no sign of PE patient feels improved here she does use albuterol at home did give her Decadron here we will prescribe her doxycycline she is follow-up with PCP return if worsening. Medical Records I reviewed the patient's medical records. Lab Data I reviewed the patient's lab results. 11/03/23 09:40 11/03/23 09:40 Labs/Radiology: Radiology Impressions Chest X-Ray 11/03/23 09:24 IMPRESSION: No acute cardiopulmonary abnormality identified. Chest CTA 11/03/23 10:11 IMPRESSION: 1. No pulmonary embolus. 2. Peribronchial wall thickening; query viral infection/bronchitis, chronic bronchitis and/or asthma. 3. Slightly worsening mediastinal and right hilar lymphadenopathy. 4. A fissural nodule on the right measures 7.4 mm; similar to September 10, 2023. As per Fleischner Society 2017 guidelines for follow-up and management of pulmonary nodules: For patients at low risk (minimal or absent history of smoking and of other known risk factors), recommend CT at 6-12 months, then consider CT at 18-24 months. For patient at high risk (history of smoking or of other known risk factors), recommend CT at 6-12 months, then CT at 18-24 months. 5. A couple additional pulmonary nodules are unchanged since 2020. Given long-term stability, these nodules are likely benign. 6. Small hiatal hernia. 7. Focal bronchiectasis in the right upper lobe. 8. Mild emphysema. 9. Periportal lymphadenopathy. COMMENTS: The presence of pulmonary emphysema on CT is an independent risk factor for lung cancer. In the absence of a history or active diagnosis of lung cancer, it is recommended that this patient with emphysema be evaluated for enrollment in a low dose CT lung cancer screening program. Laboratory Results WBC 10.84 10^3/uL (3.29-11.43) 11/03/23 09:40 RBC 4.23 10^6/uL (3.85-5.65) 11/03/23 09:40 Hgb 12.50 g/dL (11.27-16.99) 11/03/23 09:40 Hct 39.4 % (36-47) 11/03/23 09:40 MCV 93.1 fl (85-98) 11/03/23 09:40 MCH 29.6 pg (27-33) 11/03/23 09:40 MCHC 31.7 g/dL (30-55) 11/03/23 09:40 RDW 13.6 % (12.1-15.1) 11/03/23 09:40 Plt Count 297 10^3/cmm (157-399) 11/03/23 09:40 MPV 10.3 fL (7.4-10.4) 11/03/23 09:40 Neut % (Auto) 76.2 % 11/03/23 09:40 Lymph % (Auto) 13.7 % 11/03/23 09:40 Rock % (Auto) 7.3 % 11/03/23 09:40 Eos % (Auto) 1.9 % 11/03/23 09:40 Baso % (Auto) 0.5 % 11/03/23 09:40 Neut # (Auto) 8.26 10^3/uL (1.8-7.7) H 11/03/23 09:40 Lymph # (Auto) 1.5 10^3/uL (0.8-4.8) 11/03/23 09:40 Rock # (Auto) 0.8 10^3/uL (0.2-0.9) 11/03/23 09:40 Eos # (Auto) 0.2 10^3/uL (0.0-0.8) 11/03/23 09:40 Baso # (Auto) 0.1 10^3/uL (0.0-0.1) 11/03/23 09:40 Nucleated RBC % (auto) 0 % 11/03/23 09:40 Nucleated RBCs # 0.0 /100WBC 11/03/23 09:40 D-Dimer 1.87 ug/mLFEU (0-0.59) H 11/03/23 09:40 Sodium 140 mmol/L (136-145) 11/03/23 09:40 Potassium 4.7 mmol/L (3.5-5.1) 11/03/23 09:40 Chloride 103 mmol/L (98-107) 11/03/23 09:40 Carbon Dioxide 26 mmol/L (22-29) 11/03/23 09:40 Anion Gap 15.7 (5-19) 11/03/23 09:40 BUN 18 mg/dL (8-23) 11/03/23 09:40 Creatinine 1.0 mg/dL (0.5-0.9) H 11/03/23 09:40 GFR Calculation 55.1 mL/min (90-130) L 11/03/23 09:40 Glucose 108 mg/dL (65-115) 11/03/23 09:40 Calculated Osmolality 292 mOsm/kg (285-295) 11/03/23 09:40 Calcium 9.5 mg/dL (8.5-10.5) 11/03/23 09:40 Total Bilirubin 0.4 mg/dL (0.15-1.2) 11/03/23 09:40 AST 18 U/L (0-32) 11/03/23 09:40 ALT 22 U/L (0-33) 11/03/23 09:40 Alkaline Phosphatase 98 U/L (35-105) 11/03/23 09:40 Troponin T Baseline < 6 ng/L (0-10) 11/03/23 09:40 NT-Pro-B Natriuret Pep 300 pg/mL (0-125) H 11/03/23 09:40 Total Protein 7.9 g/dL (6.6-8.7) 11/03/23 09:40 Albumin 4.3 g/dL (3.5-5.2) 11/03/23 09:40 Globulin 3.6 g/dL (1.3-4.6) 11/03/23 09:40 All radiology interpretation(s) finalized by discharge EKG Data EKG 1: I personally reviewed and interpreted this EKG as follows: EKG Interpretation Date: 11/03/23 EKG interpretation time: 09:31 Interpretation: msr hr [address] or t wave abnormalities qrs 73 qtc 380 Discharge Plan Discharge Patient Disposition: Home Clinical Impression: Bronchitis Condition: Stable Prescriptions: New doxycycline hyclate 100 mg tablet 100 mg PO BID 7 Days Qty: 14 0RF No Action (DME) Pulse oximetry See Rx Instructions .Route .MEDSUPPLY Qty: 1 0RF Rx Instructions: As directed (DME) nebulizer accessories Kit See Rx Instructions .Route Qty: 1 0RF Rx Instructions: As directed aspirin 81 mg tablet,delayed release (DR/EC) 81 mg PO DAILY Qty: 30 2RF albuterol sulfate [Ventolin HFA] 90 mcg/actuation HFA aerosol inhaler 2 puff inhalation Q6H PRN (Reason: shortness of breath or wheezing) Qty: 8.5 2RF ergocalciferol (vitamin D2) [Vitamin D2] 1,250 mcg (50,000 unit) capsule 1,250 mcg PO .qweekly 56 Days Qty: 8 0RF (DME) compressor, for nebulizer Device See Rx Instructions .Route Qty: 1 0RF Rx Instructions: As directed (DME) CPAP 14cm See Rx Instructions .Route .MEDSUPPLY Qty: 1 0RF Rx Instructions: As directed (DME) CPAP mask, tubing, supplies See Rx Instructions .Route .MEDSUPPLY Qty: 1 1RF Rx Instructions: As directed lisinopril 20 mg tablet 20 mg PO BID Qty: 120 1RF omeprazole 40 mg capsule,delayed release(DR/EC) 40 mg PO DAILY Qty: 90 1RF furosemide [Lasix] 20 mg tablet 20 mg PO QAM Qty: 90 1RF ezetimibe 10 mg tablet See Rx Instructions .ROUTE .COMPLEX Qty: 90 0RF Dose Instruction: Take 1 tablet by mouth once daily Rx Instructions: Take 1 tablet by mouth once daily Tylenol PM Extra Strength 25-500 mg Tablet 1 tab PO BEDTIME ondansetron 4 mg tablet,disintegrating 4 mg PO Q8H PRN (Reason: nausea and vomiting) Qty: 30 0RF tramadol 50 mg tablet 50 mg PO Q8H PRN (Reason: pain) Qty: 20 0RF hydrocodone-acetaminophen 5-325 mg tablet 1 tab PO Q6H PRN (Reason: pain) Qty: 14 0RF Discharge Orders: Discharge ED (Routine); Ordered 11/03/23 Ordered By: Miya Minor Referrals: Rik Trotter MD [Primary Care Provider] - Discharge Diet: Advance as tolerated Discharge Activity: Resume usual activity Patient Instructions: Bronchitis (Acute) - Adult Coding Level of Care Code ED Senior National Account Manager for Brian Francois
[2023-11-03 09:49] LABS: Basophils # 0.1 10^3/uL (0.0-0.1); Basophils % 0.5 %; Eosinophils # 0.2 10^3/uL (0.0-0.8); Eosinophils % 1.9 %; Hematocrit 39.4 % (36-47); Lymphocytes # 1.5 10^3/uL (0.8-4.8); Lymphocytes % 13.7 %; Mean Corpuscular HGB Conc 31.7 g/dL (30-55); Mean Corpuscular Hemoglobin 29.6 pg (27-33); Mean Corpuscular Volume 93.1 fl (85-98); Mean Platelet Volume 10.3 fL (7.4-10.4); Monocytes # 0.8 10^3/uL (0.2-0.9); Monocytes % 7.3 %; Neutrophils # 8.26 10^3/uL (1.8-7.7); Neutrophils % 76.2 %; Nucleated Red Blood Cells % 0 %; Platelet Count 297 10^3/cmm (157-399); Red Blood Count 4.23 10^6/uL (3.85-5.65); Red Cell Distribution Width 13.6 % (12.1-15.1); White Blood Count 10.84 10^3/uL (3.29-11.43)
[2023-11-03 10:04] LABS: D Dimer 1.87 ug/mLFEU (0-0.59)
--- NOTE | 2023-11-03 10:11 | CTR_ITS ---
PROCEDURE INFORMATION: Exam: CTA Chest With Contrast Exam date and time: 11/03/2023 11:05 AM Age: 67 years old Clinical indication: Shortness of breath. TECHNIQUE: Imaging protocol: Computed tomographic angiography of the chest with contrast. Exam focused on the arteries. 3D rendering (Not supervised by radiologist): MIP and/or 3D reconstructed images were created by the technologist. Radiation optimization: All CT scans at this facility use at least one of these dose optimization techniques: automated exposure control; mA and/or kV adjustment per patient size (includes targeted exams where dose is matched to clinical indication); or iterative reconstruction. Contrast material: OMNI 350; Contrast volume: 52 ml; Contrast route: INTRAVENOUS (IV); COMPARISON: CT angio chest PE protcl [id number] 01/06/2021 1:57 PM RADIATION DOSE METRICS: Total DLP (mGy-cm): 395.52 FINDINGS: Pulmonary arteries: No pulmonary embolus. Aorta: No thoracic aortic aneurysm. Lungs: Focal bronchiectasis in the right upper lobe. Mild paraseptal and centrilobular emphysema. Subsegmental atelectasis is seen, bilaterally. Mild dependent atelectasis. There is peribronchial wall thickening. No pulmonary consolidation. A pulmonary nodule in the left upper lobe is unchanged measuring 5.8 mm (image 116). A pulmonary nodule in the right upper lobe is unchanged and measures 5.7 mm (image 177). These nodules are unchanged since 2020. A fissural nodule on the right measures 7.4 mm; similar to September 10, 2023 (image 160). Calcified granulomata in the left lower lobe. Pleural spaces: No pleural effusion. No pneumothorax. Heart: No pericardial effusion. Lymph nodes: A periportal lymph node measures 1.0 x 1.4 cm. A pretracheal lymph node measures 1.8 x 1.9 cm; previously 1.7 x 1.6 cm. A subcarinal lymph node measures 2.3 x 1.4 cm; previously 1.2 x 2.3 cm. A right hilar lymph node measures 1.0 x 1.7 cm. Diaphragm: Small hiatal hernia. Bones/joints: No acute fracture is identified. Soft tissues: No significant subcutaneous soft tissue swelling. CT/CT angio chest PE protcl [id number] IMPRESSION: 1. No pulmonary embolus. 2. Peribronchial wall thickening; query viral infection/bronchitis, chronic bronchitis and/or asthma. 3. Slightly worsening mediastinal and right hilar lymphadenopathy. 4. A fissural nodule on the right measures 7.4 mm; similar to September 10, 2023. As per Fleischner Society 2017 guidelines for follow-up and management of pulmonary nodules: For patients at low risk (minimal or absent history of smoking and of other known risk factors), recommend CT at 6-12 months, then consider CT at 18-24 months. For patient at high risk (history of smoking or of other known risk factors), recommend CT at 6-12 months, then CT at 18-24 months. 5. A couple additional pulmonary nodules are unchanged since 2020. Given long-term stability, these nodules are likely benign. 6. Small hiatal hernia. 7. Focal bronchiectasis in the right upper lobe. 8. Mild emphysema. 9. Periportal lymphadenopathy. COMMENTS: The presence of pulmonary emphysema on CT is an independent risk factor for lung cancer. In the absence of a history or active diagnosis of lung cancer, it is recommended that this patient with emphysema be evaluated for enrollment in a low dose CT lung cancer screening program.
[2023-11-03 10:14] LABS: Troponin(5th) Baseline < 6 ng/L (0-10)
--- NOTE | 2023-11-03 10:22 | ECG_ITS ---
[facility] Test Date: 2023-11-03 Pat Name: Arianne Daugherty Department: Room: Gender: Female Certified Meeting Professional: : 1955 Requested By: Miya Minor Order Number: [id number] Erica MD: Naseem Ny M.D. Measurements Intervals [place] Rate: 75 P: 27 [place]: 158 QRS: 12 QRSD: 74 T: 52 QT: 357 QTc: 400 Interpretive Statements SINUS RHYTHM LOW QRS VOLTAGE IN PRECORDIAL LEADS [QRS DEFLECTION < 1.0 mV IN CHEST LEADS] Compared to ECG 11/03/2023 09:31:27 Myocardial infarct finding no longer present Electronically Signed On 11-04-2023 7:54:27 CDT by Naseem Ny M.D. [id number] f
[2023-11-03 10:24] LABS: Alanine Aminotransferase 22 U/L (0-33); Albumin Level 4.3 g/dL (3.5-5.2); Alkaline Phosphatase 98 U/L (35-105); Anion Gap 15.7 (5-19); Aspartate Amino Transferase 18 U/L (0-32); Blood Urea Nitrogen 18 mg/dL (8-23); Calcium 9.5 mg/dL (8.5-10.5); Carbon Dioxide 26 mmol/L (22-29); Chloride 103 mmol/L (98-107); Creatinine Clr Calc Pharmacy 73.6406; Globulin 3.6 g/dL (1.3-4.6); Glomerular Filtration Rate 55.1 mL/min (90-130); Glucose 108 mg/dL (65-115); NT Pro B Type Natriuretic Pept 300 pg/mL (0-125); Osmolality Calculated 292 mOsm/kg (285-295); Potassium 4.7 mmol/L (3.5-5.1); Sodium 140 mmol/L (136-145); Total Bilirubin 0.4 mg/dL (0.15-1.2); Total Protein 7.9 g/dL (6.6-8.7)
[2023-11-03] MEDS: iohexol 350 mg/mL 500 mL Btl (per mL) IV (11:08)
--- NOTE | 2023-11-03 11:27 | ECG_ITS ---
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 Measurements Intervals [place] Rate: 82 P: 54 [place]: 165 QRS: 22 QRSD: 74 T: 60 QT: 356 QTc: 417 Interpretive Statements SINUS RHYTHM LOW QRS VOLTAGE IN PRECORDIAL LEADS [QRS DEFLECTION < 1.0 mV IN CHEST LEADS] Compared to ECG 11/03/2023 09:31:27 No significant change Electronically Signed On 11-03-2023 12:27:33 CDT by Jossie Waters M.D. [id number]
[2023-11-03] MEDS: albuterol 8 gm MDI 2 PUFF INHALATION (12:01)
[2023-11-03 12:11] LABS: Troponin 5 2HR 6.56 ng/L (0-10); Troponin 5 2HR Delta 0.56001 ABS# (0-10)
[2023-11-03] MEDS: dexamethasone 10 mg/mL INJ IVP (12:11)
[2023-11-03] MEDS: doxycycline 100 mg Tablet PO (12:11)
== END 2023-11-03 12:22 | disposition home or self-care (01) ==
PROVIDERS: Emergency Provider Emergency Medicine; PCP Family Medicine
DX: J40 Bronchitis, not specified as acute or chronic (principal); E78.5 Hyperlipidemia, unspecified; I10 Essential (primary) hypertension; Z86.73 Personal history of transient ischemic attack (TIA), and cerebral infarction without residual deficits; Z87.891 Personal history of nicotine dependence; Z79.82 Long term (current) use of aspirin
CPT/HCPCS: 36415; 71045; 71275; 80053; 83880; 84484; 85025; 85378; 93005; 94640; 96374; 99285; J1100; J3535; Q9967

== ENCOUNTER 2024-07-04 20:34 | Emergency (ER) | payer MEDICARE, SELFPAY ==
--- NOTE | 2024-07-04 20:35 | ECG_ITS ---
[facility] Date: 2024-07-04 Pat Name: Arianne Daugherty Department: Room: Gender: Female Car Pusher: : 1955 Requested By: Spenser Ambrocio Order Number: [id number] Reading MD: Measurements Intervals [place] Rate: 86 P: 38 [place]: 156 QRS: 1 QRSD: 77 T: 40 QT: 341 QTc: 409 Interpretive Statements SINUS RHYTHM LOW QRS VOLTAGE IN PRECORDIAL LEADS [QRS DEFLECTION < 1.0 mV IN CHEST LEADS] No previous ECG available for comparison [id number]
[2024-07-04 20:46] VITALS: BP 160/61; PULSE 92; RESP 20; TEMP 36.7; O2SAT 98; BMI 37.3
--- NOTE | 2024-07-04 20:49 | XRR_ITS ---
PROCEDURE INFORMATION: Exam: XR Chest Exam date and time: 07/04/2024 9:24 PM Age: 68 years old Clinical indication: Pain; Chest pressure; Additional info: Cp TECHNIQUE: Imaging protocol: Radiologic exam of the chest. Views: 1 view. COMPARISON: CT angio chest PE protcl [id number] 11/03/2023 11:05 AM FINDINGS: Lungs: Mild left lateral basilar atelectasis and/or pneumonia. Pleural spaces: Unremarkable. No pleural effusion. No pneumothorax. Heart/Mediastinum: Unremarkable. No cardiomegaly. Bones/joints: Moderate thoracic spondylosis. XR/XR chest 1V portable [id number] IMPRESSION: Mild left lateral basilar atelectasis and/or pneumonia.
--- NOTE | 2024-07-04 21:24 | CTR_ITS ---
PROCEDURE INFORMATION: Exam: CT Abdomen And Pelvis With Contrast Exam date and time: 07/04/2024 9:52 PM Age: 68 years old Clinical indication: Nausea and vomiting; Abdominal pain; Prior surgery; Surgery date: 6+ months; Surgery type: Hysterectomy; Epigastric pain with n/v/d. ; Additional info: Vomiting diarrhea epigastric discomfort TECHNIQUE: Imaging protocol: Computed tomography of the abdomen and pelvis with contrast. Radiation optimization: All CT scans at this facility use at least one of these dose optimization techniques: automated exposure control; mA and/or kV adjustment per patient size (includes targeted exams where dose is matched to clinical indication); or iterative reconstruction. Contrast material: OMNI 350; Contrast volume: 80 ml; Contrast route: INTRAVENOUS (IV); COMPARISON: CT abdomen pelvis w con* [id number] 11/24/2022 8:42 PM RADIATION DOSE METRICS: Total DLP (mGy-cm): 1761.56 FINDINGS: Liver: Normal. No mass. Gallbladder and biliary ducts: Normal. No calcified stones. No ductal dilation. Pancreas: Normal. No ductal dilation. Spleen: One or more accessory splenules. Adrenal glands: Normal. No mass. Kidneys and ureters: Normal. No hydronephrosis. Stomach and bowel: Unremarkable. No obstruction. No mucosal thickening. Appendix: Normal appendix. Intraperitoneal space: Unremarkable. No free air. No significant fluid collection. Vasculature: Calcification of the abdominal aorta and/or iliac arteries consistent with atherosclerotic vessel disease. One or more calcified pelvic phleboliths. Lymph nodes: Unremarkable. No enlarged lymph nodes. Urinary bladder: Unremarkable as visualized. Reproductive: Status post hysterectomy. Bones/joints: Unremarkable. No acute fracture. Soft tissues: Sara mesentery sign with central mesenteric fat edema and extensive differential diagnosis including but not limited to pancreatitis, portal hypertension, infectious process, autoimmune/allergic process or neoplastic process. CT/CT abdomen pelvis w con* [id number] IMPRESSION: Sara mesentery sign with central mesenteric fat edema and extensive differential diagnosis including but not limited to pancreatitis, portal hypertension, infectious process, autoimmune/allergic process or neoplastic process.
--- NOTE | 2024-07-04 21:31 | W.ED.NAVMDI ---
HPI - Nausea/Vomiting/Diarrhea General: Chief complaint: Nausea/Vomiting/Diarrhea Stated complaint: N,V,D CP Headache Time Seen by Provider: 07/04/24 21:01 History of Present Illness: 68-year-old female with a history of respiratory disease. She presents with vomiting and diarrhea since 630 this morning. Brief episodes of chest discomfort. Only with vomiting. No blood in the stool or vomitus. No fever. No sick contacts. Only belly surgery history is hysterectomy. Related Data Home Medications ?Medication ?Instructions ?Recorded ?Confirmed diphenhydramine 25 1 tab PO BEDTIME 08/23/20 01/20/24 mg-acetaminophen 500 mg tablet (Tylenol PM Extra Strength) Previous Rx's ?Medication ?Instructions ?Recorded Pulse oximetry #1 ea 12/05/20 nebulizer accessories #1 ea 12/22/20 compressor, for nebulizer #1 ea 12/23/20 aspirin 81 mg tablet,delayed 81 mg PO DAILY #30 tabs 11/06/21 release albuterol sulfate 90 mcg/actuation 2 puff inhalation Q6H PRN 04/26/22 aerosol inhaler (Ventolin HFA) shortness of breath or wheezing #8.5 grams CPAP 14cm #1 ea 09/10/22 CPAP mask, tubing, supplies #1 ea 09/10/22 ergocalciferol (vitamin D2) 1,250 1,250 mcg PO .qweekly 8 weeks #8 09/10/22 mcg (50,000 unit) capsule (Vitamin caps D2) mometasone-formoterol HFA 100 2 puff inhalation BID #8.8 grams 01/20/24 mcg-5 mcg/actuation aerosol inhaler (Dulera) omeprazole 40 mg capsule,delayed See Rx Instructions .Route 03/16/24 release .COMPLEX #90 caps ezetimibe 10 mg tablet See Rx Instructions .Route 05/14/24 .COMPLEX #30 tabs furosemide 20 mg tablet (Lasix) 20 mg PO QAM #30 tabs 05/14/24 lisinopril 20 mg tablet 20 mg PO BID #60 tabs 05/14/24 ondansetron 4 mg disintegrating 4 mg PO Q8H PRN nausea and 07/04/24 tablet vomiting #30 tabs Allergies Allergy/AdvReac Type Severity Reaction Status Date / Time ibuprofen Allergy Mild ADR-Vomitin Verified 01/20/24 13:50 g codeine Allergy Unknown Verified 01/20/24 13:50 Penicillins Allergy Unknown Verified 01/20/24 13:50 cholecalciferol (vitamin D3) AdvReac Severe ADR-Nausea Verified 01/20/24 13:50 (From Vitamin D3) [facility] ED PFS: Medical History Seborrheic dermatitis [place] (obstructive sleep apnea) Vitamin D deficiency Lung nodule < 6cm on CT History of COVID-19 12/01/20 WILFRIDO (generalized anxiety disorder) History of DVT of lower extremity Status migrainosus HLD (hyperlipidemia) HTN (hypertension) Headache TIA (transient ischemic attack) Surgical History History of hysterectomy Family History Mother Cancer breast->bone Other Chronic kidney disease (CKD) Diabetes Heart disease Hypertension Lung disease Psychiatric illness Stroke Denies family history of Clotting disorder Dementia Hyperlipidemia Anesthesia complication Bleeding disorder Social History Smoking and tobacco/nicotine status: former use of tobacco/nicotine Second hand smoke exposure: No Alcohol intake: never Substance/Drug Use: never Adopted: No Caregiver/support person: No Lives independently: Yes Household members: spouse Housing: House Marital status: Number of children: 3 service: No Current occupational status: unemployed Do you think of yourself as: Straight/Heterosexual Current gender identity: Female Special perla needs: No Agree to transfusion: Yes Physical Exam Const: GENERAL APPEARANCE: cooperative and ill appearing (Mildly); not frail appearing HENMT: COMMON NORMALS: normocephalic, atraumatic and Normal external nose present HEAD & SCALP: normocephalic and atraumatic FACE & SINUS: normal facial exam and face symmetric NOSE: Normal external nose present Eye: COMMON NORMALS: Equal, round and reactive pupils present and EOMs intact bilaterally PUPIL: Yes Equal, round and reactive pupils present Neck/C-Spine: GENERAL: Yes trachea midline Chest: CHEST: Yes Symmetrical chest wall rise Resp: COMMON NORMALS: normal respiratory effort, No retractions, No use of accessory muscles and clear to auscultation bilaterally AUSCULTATION: clear to auscultation bilaterally Cardio: COMMON NORMALS: regular rate and regular rhythm RATE: regular rate RHYTHM: regular rhythm GI: INSPECTION: Yes abdominal distension PALPATION: Yes Guarding due to palpation present (GI) Extremity: COMMON NORMALS: no pedal edema Neuro: MARISSA COMA SCALE: document GCS findings [place] coma scale eye opening: Spontaneous [place] coma scale verbal response: Orientated Marissa coma scale motor response: Obey commands [place] coma scale total score: 15 SENSORY EXAM: Yes extremities (intact) Psych: COMMON NORMALS: speech normal SPEECH: Yes normal speech Skin: COMMON NORMALS: no rashes or lesions noted GENERAL SKIN EXAM: no rashes or lesions noted Course Vital Signs: Vital signs: Vital Signs Temperature 98.0 F 07/04/24 20:46 Pulse Rate 98 07/05/24 00:49 Respiratory Rate 18 07/05/24 00:49 Blood Pressure 125/65 07/05/24 00:49 Pulse Oximetry 97 07/05/24 00:49 Oxygen Delivery Me thod Room Air 07/04/24 20:46 MDM - Nausea/Vomiting/Diarrhea Medical Decision Making 68-year-old female vomiting diarrhea. Chest x-ray shows mild left basilar atelectasis, not apparent on CT. On CT, there is tanya mesentery in the central mesenteric fat. No other acute findings. CBC and BMP are normal. Liver enzymes are normal. Troponin is nondetectable. Swabs for influenza COVID and RSV are negative. She is feeling improved after fluids and Zofran. She will be allowed home. Return for any worsening symptoms. Symptomatic treatment. Close outpatient follow-up regarding tanya mesentery Lab Data 07/04/24 21:05 07/04/24 21:05 Radiology Impressions Chest X-Ray 07/04/24 20:49 IMPRESSION: Mild left lateral basilar atelectasis and/or pneumonia. Abdomen/Pelvis CT 07/04/24 21:24 IMPRESSION: Tanya mesentery sign with central mesenteric fat edema and extensive differential diagnosis including but not limited to pancreatitis, portal hypertension, infectious process, autoimmune/allergic process or neoplastic process. Laboratory Results WBC 9.15 10^3/uL (3.29-11.43) 07/04/24 21:05 RBC 4.20 10^6/uL (3.85-5.65) 07/04/24 21:05 Hgb 12.10 g/dL (11.27-16.99) 07/04/24 21:05 Hct 38.8 % (36-47) 07/04/24 21:05 MCV 92.4 fl (85-98) 07/04/24 21:05 MCH 28.8 pg (27-33) 07/04/24 21:05 MCHC 31.2 g/dL (30-55) 07/04/24 21:05 RDW 13.3 % (12.1-15.1) 07/04/24 21:05 Plt Count 307 10^3/cmm (157-399) 07/04/24 21:05 MPV 10.1 fL (7.4-10.4) 07/04/24 21:05 Neut % (Auto) 84.3 % 07/04/24 21: Lymph % (Auto) 9.1 % 07/04/24: Ross % (Auto) 5.6 % 07/04/24:05 Eos % (Auto) 0.4 % 07/04/24:05 Baso % (Auto) 0.3 % 07/04/24: Neut # (Auto) 7.71 10^3/uL (1.8-7.7) H 07/04/24 21:05 Lymph # (Auto) 0.8 10^3/uL (0.8-4.8) 07/04/24 21:05 Ross # (Auto) 0.5 10^3/uL (0.2-0.9) 07/04/24:05 Eos # (Auto) 0.0 10^3/uL (0.0-0.8) 07/04/24 21:05 Baso # (Auto) 0.0 10^3/uL (0.0-0.1) 07/04/24: Nucleated RBC % (auto) 0 % 07/04/24: Nucleated RBCs # 0.0 /100WBC 07/04/24 21:05 PT 13.50 SECONDS (12.1-14.9) 07/04/24 21:05 INR 0.97 (0.8-1.2) 07/04/24 21:05 APTT 24.8 SECONDS (23.9-36.7) 03/29/25 21:05 Sodium 141 mmol/L (136-145) 07/04/24 21:05 Potassium 4.5 mmol/L (3.5-5.1) 07/04/24 21:05 Chloride 106 mmol/L (98-107) 07/04/24 21:05 Carbon Dioxide 24 mmol/L (22-29) 07/04/24 21:05 Anion Gap 15.5 (5-19) 07/04/24 21:05 BUN 18 mg/dL (8-23) 07/04/24 21:05 Creatinine 0.9 mg/dL (0.5-0.9) 07/04/24 21:05 GFR Calculation 62.1 mL/min (90-130) L 07/04/24 21:05 Glucose 107 mg/dL (65-115) 07/04/24 21:05 Calculated Osmolality 294 mOsm/kg (285-295) 07/04/24 21:05 Calcium 8.9 mg/dL (8.5-10.5) 07/04/24 21:05 Total Bilirubin 0.4 mg/dL (0.15-1.2) 07/04/24 21:05 AST 27 U/L (0-32) 07/04/24 21:05 ALT 26 U/L (0-33) 07/04/24 21:05 Alkaline Phosphatase 90 U/L (35-105) 07/04/24 21:05 Creatine Kinase 66 U/L (26-192) 07/04/24 21:05 Troponin T Baseline < 6 ng/L (0-10) 07/04/24 21:05 Troponin T 120 Minute 6.00 ng/L (0-10) 07/04/24 23:00 Delta Troponin T 0.51996 ABS# (0-10) 07/04/24 23:00 NT-Pro-B Natriuret Pep 436 pg/mL (0-125) H 07/04/24 21:05 Total Protein 7.0 g/dL (6.6-8.7) 07/04/24 21:05 Albumin 4.2 g/dL (3.5-5.2) 07/04/24 21:05 Globulin 2.8 g/dL (1.3-4.6) 07/04/24 21:05 Lipase 39 U/L (13-60) 07/04/24 21:05 Influenza A (PCR) Negative (Negative) 07/04/24 21:50 Influenza Type B (PCR) Negative (Negative) 07/04/24 21:50 RSV (PCR) Negative (Negative) 07/04/24 21:50 SARS-CoV-2 (PCR) Negative (Negative) 07/04/24 21:50 All radiology interpretation(s) finalized by discharge Discharge Plan Discharge Patient Disposition: Home Clinical Impression: Gastroenteritis Condition: Stable Prescriptions: Continued ondansetron 4 mg tablet,disintegrating 4 mg PO Q8H PRN (Reason: nausea and vomiting) Qty: 30 0RF No Action (DME) Pulse oximetry See Rx Instructions .Route .MEDSUPPLY Qty: 1 0RF Rx Instructions: As directed (DME) nebulizer accessories Kit See Rx Instructions .Route Qty: 1 0RF Rx Instructions: As directed aspirin 81 mg tablet,delayed release (DR/EC) 81 mg PO DAILY Qty: 30 2RF albuterol sulfate [Ventolin HFA] 90 mcg/actuation HFA aerosol inhaler 2 puff inhalation Q6H PRN (Reason: shortness of breath or wheezing) Qty: 8.5 2RF ergocalciferol (vitamin D2) [Vitamin D2] 1,250 mcg (50,000 unit) capsule 1,250 mcg PO .qweekly 56 Days Qty: 8 0RF Dulera 100-5 mcg/actuation HFA aerosol inhaler 2 puff inhalation BID Qty: 8.8 1RF (DME) compressor, for nebulizer Device See Rx Instructions .Route Qty: 1 0RF Rx Instructions: As directed (DME) CPAP 14cm See Rx Instructions .Route .MEDSUPPLY Qty: 1 0RF Rx Instructions: As directed (DME) CPAP mask, tubing, supplies See Rx Instructions .Route .MEDSUPPLY Qty: 1 1RF Rx Instructions: As directed omeprazole 40 mg capsule,delayed release(DR/EC) See Rx Instructions .ROUTE .COMPLEX Qty: 90 0RF Dose Instruction: Take 1 capsule by mouth once daily Rx Instructions: Take 1 capsule by mouth once daily lisinopril 20 mg tablet 20 mg PO BID Qty: 60 0RF ezetimibe 10 mg tablet See Rx Instructions .ROUTE .COMPLEX Qty: 30 0RF Dose Instruction: Take 1 tablet by mouth once daily Rx Instructions: Take 1 tablet by mouth once daily furosemide [Lasix] 20 mg tablet 20 mg PO QAM Qty: 30 0RF Tylenol PM Extra Strength 25-500 mg Tablet 1 tab PO BEDTIME Discharge Orders: Discharge ED (Routine); Ordered 07/04/24 Ordered By: Spenser Segal Referrals: Rik Trotter MD [Primary Care Provider] - 1-3 days Patient Instructions: Gastroenteritis (ED), Opioid Safety, Pain Management Activity Restrictions/Additional Instructions: Your imaging tonight showed inflammation of the mesentery, which is the tissue that ties your intestines together. This is most likely due to a viral gastroenteritis. More outpatient testing may be needed if your symptoms do not resolve. Take nausea medication scheduled every 4 hours while awake for the first 24 hours, then as needed for nausea. Follow a liquid diet for the first 24 hours, then you may advance as tolerated if there is no more vomiting. Call your doctor Saturday morning for an appointment for follow-up. Return for worsening symptoms. Print Language: Frisian Coding Level of Care Code ED Horse Show Manager for Brian Francois
[2024-07-04 21:36] LABS: Basophils % 0.3 %; Eosinophils % 0.4 %; Hematocrit 38.8 % (36-47); Lymphocytes # 0.8 10^3/uL (0.8-4.8); Lymphocytes % 9.1 %; Mean Corpuscular HGB Conc 31.2 g/dL (30-55); Mean Corpuscular Hemoglobin 28.8 pg (27-33); Mean Corpuscular Volume 92.4 fl (85-98); Mean Platelet Volume 10.1 fL (7.4-10.4); Monocytes # 0.5 10^3/uL (0.2-0.9); Monocytes % 5.6 %; Neutrophils # 7.71 10^3/uL (1.8-7.7); Neutrophils % 84.3 %; Nucleated Red Blood Cells % 0 %; Platelet Count 307 10^3/cmm (157-399); Red Cell Distribution Width 13.3 % (12.1-15.1); White Blood Count 9.15 10^3/uL (3.29-11.43)
[2024-07-04 21:51] LABS: INR 0.97 (0.8-1.2); Partial Thromboplastin Time 24.8 SECONDS (23.9-36.7)
[2024-07-04 21:55] LABS: Troponin(5th) Baseline < 6 ng/L (0-10)
[2024-07-04] MEDS: iohexol 350 mg/mL 500 mL Btl (per mL) IV (21:55)
[2024-07-04 22:01] LABS: Alanine Aminotransferase 26 U/L (0-33); Albumin Level 4.2 g/dL (3.5-5.2); Alkaline Phosphatase 90 U/L (35-105); Anion Gap 15.5 (5-19); Aspartate Amino Transferase 27 U/L (0-32); Blood Urea Nitrogen 18 mg/dL (8-23); Calcium 8.9 mg/dL (8.5-10.5); Carbon Dioxide 24 mmol/L (22-29); Chloride 106 mmol/L (98-107); Creatine Phosphokinase 66 U/L (26-192); Globulin 2.8 g/dL (1.3-4.6); Glomerular Filtration Rate 62.1 mL/min (90-130); Glucose 107 mg/dL (65-115); Lipase 39 U/L (13-60); NT Pro B Type Natriuretic Pept 436 pg/mL (0-125); Osmolality Calculated 294 mOsm/kg (285-295); Potassium 4.5 mmol/L (3.5-5.1); Sodium 141 mmol/L (136-145); Total Bilirubin 0.4 mg/dL (0.15-1.2)
[2024-07-04 22:52] LABS: Influenza A NEGATIVE (Negative); Influenza B NEGATIVE (Negative); Respiratory Syncytial Virus Ce NEGATIVE (Negative); SARS-CoV-2 PCR NEGATIVE (Negative)
[2024-07-04] MEDS: ondansetron 2 mg/ML SDV 2 mL 4 MG IVP (22:53)
[2024-07-04] MEDS: sodium chloride 0.9% 1,000 ML 999 ML IV (22:54)
[2024-07-04] MEDS: metoclopramide 5 mg/mL SDV 2 mL 10 MG IVP (22:54)
[2024-07-04 23:31] LABS: Troponin 5 2HR Delta 0.00001 ABS# (0-10)
[2024-07-05] MEDS: dexamethasone 4 mg/mL INJ 8 MG IVP (00:11)
[2024-07-05 00:49] VITALS: BP 125/65; PULSE 98; RESP 18; O2SAT 97
== END 2024-07-05 00:41 | disposition home or self-care (01) ==
PROVIDERS: Emergency Provider Emergency Medicine; PCP Family Medicine
DX: K52.9 Noninfective gastroenteritis and colitis, unspecified (principal); Z11.52 Encounter for screening for COVID-19; Z79.82 Long term (current) use of aspirin; Z87.891 Personal history of nicotine dependence; E78.5 Hyperlipidemia, unspecified; I10 Essential (primary) hypertension; Z86.73 Personal history of transient ischemic attack (TIA), and cerebral infarction without residual deficits
CPT/HCPCS: 36415; 71045; 74177; 80053; 82550; 83690; 83880; 84484; 85025; 85610; 85730; 87637; 93005; 96374; 96375; 99285; J1100; J2405; J2765; J7030

== ENCOUNTER 2024-07-13 03:55 | Emergency (ER) | payer MEDICARE, SELFPAY ==
[2024-07-13 03:57] VITALS: BP 186/76; PULSE 71; RESP 18; TEMP 36.9; O2SAT 98; BMI 37.3
--- NOTE | 2024-07-13 04:03 | ECG_ITS ---
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
--- NOTE | 2024-07-13 04:22 | ED_ITS ---
HPI - Abdominal Pain 2 General: Chief Complaint: Abdominal Pain Stated Complaint: ABD PAIN Time Seen by Provider: 07/13/24 04:09 History of Present Illness: 68-year-old female presenting with abdom inal pain, radiating into her chest. She is nauseated. She is not short of breath. She had similar symptoms a week ago, and was treated here. She notes that she was fine until this morning, when symptoms returned. No fever. No vomiting. No diarrhea at this time. She had the symptoms prior. Related Data Home Medications ?Medication ?Instructions ?Recorded ?Confirmed diphenhydramine 25 1 tab PO BEDTIME 08/23/20 mg-acetaminophen 500 mg tablet (Tylenol PM Extra Strength) Previous Rx's ?Medication ?Instructions ?Recorded Pulse oximetry #1 ea 12/05/20 nebulizer accessories #1 ea 12/22/20 compressor, for nebulizer #1 ea 12/23/20 aspirin 81 mg tablet,delayed 81 mg PO DAILY #30 tabs 0 11/06/21 release albuterol sulfate 90 mcg/actuation 2 puff inhalation Q 6H PRN 04/26/22 aerosol inhaler (Ventolin HFA) shortness of breath or wheezing #8.5 grams CPAP 14cm #1 ea 09/10/22 CPAP mask, tubing, supplies #1 ea 09/10/22 ergocalciferol (vitamin D2) 1,250 1,250 mcg PO .qweekl y 8 weeks #8 09/10/22 mcg (50,000 unit) capsule (Vitamin caps D2) mometasone-formoterol HFA 100 2 puff inhalation BID #8 .8 grams 01/20/24 mcg-5 mcg/actuation aerosol inhaler (Dulera) omeprazole 40 mg capsule,delayed See Rx Instructions . Route 03/16/24 release .COMPLEX #90 caps ezetimibe 10 mg tablet See Rx Instructions .Route 0 05/14/24 .COMPLEX #30 tabs furosemide 20 mg tablet (Lasix) 20 mg PO QAM #30 tabs 05/14/24 lisinopril 20 mg tablet 20 mg PO BID #60 tabs ondansetron 4 mg disintegrating 4 mg PO Q8H PRN nausea and 07/04/24 tablet vomiting #30 tabs sucralfate 1 gram tablet 1 g PO TID 4 weeks #84 tabs 07/13/24 Allergies Allergy/AdvReac Type Severity Reaction Status Date / Time ibuprofen Allergy Mild ADR-Vomitin Verified 07/13/24 04:02 g codeine Allergy Unknown Verified 07/13/24 04:02 Penicillins Allergy Unknown Verified 07/13/24 04:02 cholecalciferol (vitamin D3) AdvReac Severe ADR-Nausea Verified 07/13/24 04:02 (From Vitamin D3) PFSH ED 2 PFSH: Medical History Seborrheic dermatitis [place] (obstructive sleep apnea) Vitamin D deficiency Lung nodule < 6cm on CT History of COVID-19 12/01/20 WILFRIDO (generalized anxiety disorder) History of DVT of lower extremity Status migrainosus HLD (hyperlipidemia) HTN (hypertension) Headache TIA (transient ischemic attack) Surgical History History of hysterectomy Family History Mother Cancer breast->bone Other Chronic kidney disease (CKD) Diabetes Heart disease Hypertension Lung disease Psychiatric illness Stroke Denies family history of Clotting disorder Dementia Hyperlipidemia Anesthesia complication Bleeding disorder Social History Smoking and tobacco/nicotine status: former use of tobacco/nicotine Second hand smoke exposure: No Alcohol intake: never Substance/Drug Use: never Adopted: No Caregiver/support person: No Lives independently: Yes Household members: spouse Housing: House Marital status: Number of children: 3 service: No Current occupational status: unemployed Do you think of yourself as: Straight/Heterosexual Current gender identity: Female Special perla needs: No Agree to transfusion: Yes Physical Exam 2 Const: COMMON NORMALS: no acute distress GENERAL APPEARANCE: cooperative; not ill appearing and not frail appearing HENMT: COMMON NORMALS: normocephalic, atraumatic and Normal external nose present HEAD & SCALP: normocephalic and atraumatic FACE & SINUS: normal facial exam and face symmetric NOSE: Normal external nose present Eye: COMMON NORMALS: Equal, round and reactive pupils present and EOMs intact bilaterally PUPIL: Yes Equal, round and reactive pupils present Neck/C-Spine: GENERAL: Yes trachea midline Chest: CHEST: Yes Symmetrical chest wall rise Resp: COMMON NORMALS: normal respiratory effort, No retractions, No use of accessory muscles and clear to auscultation bilaterally AUSCULTATION: clear to auscultation bilaterally Cardio: COMMON NORMALS: regular rate and regular rhythm RATE: regular rate RHYTHM: regular rhythm GI: INSPECTION: Yes abdominal distension PALPATION: Yes Tenderness to palpation present (GI) (Diffuse) and Yes Guarding due to palpation present (GI) Extremity: COMMON NORMALS: no pedal edema Neuro: MARISSA COMA SCALE: document GCS findings [place] coma scale eye opening: Spontaneous [place] coma scale verbal response: Orientated [place] coma scale motor response: Obey commands [place] coma scale total score: 15 S ENSORY EXAM: Yes extremities (intact) Psych: COMMON NORMALS: speech normal SPEECH: Yes normal speech Skin: COMMON NORMALS: no rashes or lesions noted GENERAL SKIN EXAM: no rashes or lesions noted Course 2 Vital Signs: Vital signs: Vital Signs Temperature 98.5 F 07/13/24 03:57 Pulse Rate 75 07/13/24 06:15 Respiratory Rate 18 07/13/24 06:00 Blood Pressure 165/86 07/13/24 06:15 Pulse Oximetry 95 07/13/24 06:15 Oxygen Delivery Me thod Room Air 07/13/24 03:57 MDM - Abdominal Pain Medical Decision Making Discomfort is significantly improved after GI cocktail here. She has minimal elevation of her liver enzymes, with normal bilirubin, and mildly elevated lipase. As CT was done 1 week ago, and there is no leukocytosis present, repeat CT scan felt not warranted. With relief in her symptoms, she will be discharged. She had stopped taking her omeprazole. We will restart her on this, twice daily for the next month as well as Carafate. She is to follow-up as an outpatient. She is to return for worsening symptoms despite treatment. Lab Data 07/13/24 04:16 07/13/24 04:16 Labs/Radiology: Laboratory Results WBC 8.56 10^3/uL (3.29-11.43) 07/13/24 04:16 RBC 4.09 10^6/uL (3.85-5.65) 07/13/24 04:16 Hgb 11.90 g/dL (11.27-16.99) 07/13/24 04:16 Hct 37.9 % (36-47) 07/13/24 04:16 MCV 92.7 fl (85-98) 07/13/24 04:16 MCH 29.1 pg (27-33) 07/13/24 04:16 MCHC 31.4 g/dL (30-55) 07/13/24 04:16 RDW 13.3 % (12.1-15.1) 07/13/24 04:16 Plt Count 331 10^3/cmm (157-399) 07/13/24 04:16 MPV 9.9 fL (7.4-10.4) 07/13/24 04:16 Neut % (Auto) 58.5 % 07/13/24 04:16 Lymph % (Auto) 29.6 % 07/13/24 04:16 [place] % (Auto) 7.5 % 07/13/24 04:16 Eos % (Auto) 3.4 % 07/13/24 04:16 Baso % (Auto) 0.6 % 07/13/24 04:16 Neut # (Auto) 5.02 10^3/uL (1.8-7.7) 07/13/24 04:16 Lymph # (Auto) 2.5 10^3/uL (0.8-4.8) 07/13/24 04:16 [place] # (Auto) 0.6 10^3/uL (0.2-0.9) 07/13/24 04:16 Eos # (Auto) 0.3 10^3/uL (0.0-0.8) 07/13/24 04:16 Baso # (Auto) 0.1 10^3/uL (0.0-0.1) 07/13/24 04:16 Nucleated RBC % (auto) 0 % 07/13/24 04:16 Nucleated RBCs # 0.0 /100WBC 07/13/24 04:16 Sodium 141 mmol/L (136-145) 07/13/24 04:16 Potassium 3.5 mmol/L (3.5-5.1) 07/13/24 04:16 Chloride 102 mmol/L (98-107) 07/13/24 04:16 Carbon Dioxide 27 mmol/L (22-29) 07/13/24 04:16 Anion Gap 15.5 (5-19) 07/13/24 04:16 BUN 18 mg/dL (8-23) 07/13/24 04:16 Creatinine 1.0 mg/dL (0.5-0.9) H 07/13/24 04:16 GFR Calculation 55.0 mL/min (90-130) L 07/13/24 04:16 Glucose 118 mg/dL (65-115) H 07/13/24 04:16 Calculated Osmolality 295 mOsm/kg (285-295) 07/13/24 04:16 Lactic Acid 1.3 mmol/L (0.5-2.2) 07/13/24 04:16 Calcium 9.1 mg/dL (8.5-10.5) 07/13/24 04:16 Total Bilirubin 0.3 mg/dL (0.15-1.2) 07/13/24 04:16 AST 54 U/L (0-32) H 07/13/24 04:16 ALT 39 U/L (0-33) H 07/13/24 04:16 Alkaline Phosphatase 107 U/L (35-105) H 07/13/24 04:16 C-Reactive Protein 7.7 mg/L (0.0-4.9) H 07/13/24 04:16 Total Protein 7.2 g/dL (6.6-8.7) 07/13/24 04:16 Albumin 4.0 g/dL (3.5-5.2) 07/13/24 04:16 Globulin 3.2 g/dL (1.3-4.6) 07/13/24 04:16 Lipase 67 U/L (13-60) H 07/13/24 04:16 All radiology interpretation(s) finalized by discharge Discharge Plan Discharge Patient Disposition: Home Clinical Impression: GERD (gastroesophageal reflux disease) Condition: Stable Prescriptions: New sucralfate 1 gram tablet 1 g PO TID 28 Days Qty: 84 0RF No Action (DME) Pulse oximetry See Rx Instructions .Route .MEDSUPPLY Qty: 1 0RF Rx Instructions: As directed (DME) nebulizer accessories Kit See Rx Instructions .Route Qty: 1 0RF Rx Instructions: As directed aspirin 81 mg tablet,delayed release (DR/EC) 81 mg PO DAILY Qty: 30 2RF albuterol sulfate [Ventolin HFA] 90 mcg/actuation HFA aerosol inhaler 2 puff inhalation Q6H PRN (Reason: shortness of breath or wheezing) Qty: 8.5 2RF ergocalciferol (vitamin D2) [Vitamin D2] 1,250 mcg (50,000 unit) capsule 1,250 mcg PO .qweekly 56 Days Qty: 8 0RF Dulera 100-5 mcg/actuation HFA aerosol inhaler 2 puff inhalation BID Qty: 8.8 1RF (DME) compressor, for nebulizer Device See Rx Instructions .Route Qty: 1 0RF Rx Instructions: As directed (DME) CPAP 14cm See Rx Instructions .Route .MEDSUPPLY Qty: 1 0RF Rx Instructions: As directed (DME) CPAP mask, tubing, supplies See Rx Instructions .Route .MEDSUPPLY Qty: 1 1RF Rx Instructions: As directed omeprazole 40 mg capsule,delayed release(DR/EC) See Rx Instructions .ROUTE .COMPLEX Qty: 90 0RF Dose Instruction: Take 1 capsule by mouth once daily Rx Instructions: Take 1 capsule by mouth once daily lisinopril 20 mg tablet 20 mg PO BID Qty: 60 0RF ezetimibe 10 mg tablet See Rx Instructions .ROUTE .COMPLEX Qty: 30 0RF Dose Instruction: Take 1 tablet by mouth once daily Rx Instructions: Take 1 tablet by mouth once daily furosemide [Lasix] 20 mg tablet 20 mg PO QAM Qty: 30 0RF Tylenol PM Extra Strength 25-500 mg Tablet 1 tab PO BEDTIME ondansetron 4 mg tablet,disintegrating 4 mg PO Q8H PRN (Reason: nausea and vomiting) Qty: 30 0RF Discharge Orders: Discharge ED (Routine); Ordered 07/13/24 Ordered By: Spenser Segal Referrals: Rik Trotter MD [Primary Care Provider] - 1-3 days Patient Instructions: Esophagitis (ED), Opioid Safety, Pain Management Activity Restrictions/Additional Instructions: Increase your omeprazole to twice daily instead of once daily for the next 30 days. Use medication prescribed this morning 30 minutes before meals 3 times a day. Call your doctor later this morning for a follow-up appointment. Return for problems. Print Language: Djiboutian Coding Level of Care Code ED Account Manager B2B for Brian Francois
[2024-07-13] MEDS: ondansetron 2 mg/ML SDV 2 mL 4 MG IVP (04:27)
[2024-07-13] MEDS: lidocaine 2% viscous 15 ML, aluminum-mag hydrox-simethicon 30 ML, sucralfate oral liq 1 GM PO (04:27)
[2024-07-13] MEDS: morphine 4 mg/mL SDV 1 mL IVP (04:27)
[2024-07-13 04:33] LABS: Basophils # 0.1 10^3/uL (0.0-0.1); Basophils % 0.6 %; Eosinophils # 0.3 10^3/uL (0.0-0.8); Eosinophils % 3.4 %; Hematocrit 37.9 % (36-47); Lymphocytes # 2.5 10^3/uL (0.8-4.8); Lymphocytes % 29.6 %; Mean Corpuscular HGB Conc 31.4 g/dL (30-55); Mean Corpuscular Hemoglobin 29.1 pg (27-33); Mean Corpuscular Volume 92.7 fl (85-98); Mean Platelet Volume 9.9 fL (7.4-10.4); Monocytes # 0.6 10^3/uL (0.2-0.9); Monocytes % 7.5 %; Neutrophils # 5.02 10^3/uL (1.8-7.7); Neutrophils % 58.5 %; Nucleated Red Blood Cells % 0 %; Platelet Count 331 10^3/cmm (157-399); Red Blood Count 4.09 10^6/uL (3.85-5.65); Red Cell Distribution Width 13.3 % (12.1-15.1); White Blood Count 8.56 10^3/uL (3.29-11.43)
[2024-07-13 04:48] LABS: Alanine Aminotransferase 39 U/L (0-33); Alkaline Phosphatase 107 U/L (35-105); Anion Gap 15.5 (5-19); Aspartate Amino Transferase 54 U/L (0-32); Blood Urea Nitrogen 18 mg/dL (8-23); C Reactive Protein 7.7 mg/L (0.0-4.9); Calcium 9.1 mg/dL (8.5-10.5); Carbon Dioxide 27 mmol/L (22-29); Chloride 102 mmol/L (98-107); Creatinine Clr Calc Pharmacy 70.3371; Globulin 3.2 g/dL (1.3-4.6); Glucose 118 mg/dL (65-115); Lipase 67 U/L (13-60); Osmolality Calculated 295 mOsm/kg (285-295); Potassium 3.5 mmol/L (3.5-5.1); Sodium 141 mmol/L (136-145); Total Bilirubin 0.3 mg/dL (0.15-1.2); Total Protein 7.2 g/dL (6.6-8.7)
[2024-07-13 04:49] LABS: Lactic Sepsis W/Reflex 1.3 mmol/L (0.5-2.2)
[2024-07-13 05:02] VITALS: PULSE 61; RESP 19; O2SAT 93
--- NOTE | 2024-07-13 05:31 | ECG_ITS ---
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
[2024-07-13 06:00] VITALS: BP 165/86; PULSE 75; RESP 18; O2SAT 95
[2024-07-13 06:15] VITALS: BP 165/86; PULSE 75; O2SAT 95
== END 2024-07-13 06:17 | disposition home or self-care (01) ==
PROVIDERS: Emergency Provider Emergency Medicine; PCP Family Medicine
DX: K21.9 Gastro-esophageal reflux disease without esophagitis (principal); Z79.82 Long term (current) use of aspirin; Z87.891 Personal history of nicotine dependence; Z86.73 Personal history of transient ischemic attack (TIA), and cerebral infarction without residual deficits; E78.5 Hyperlipidemia, unspecified; I10 Essential (primary) hypertension
CPT/HCPCS: 36415; 80053; 83605; 83690; 85025; 86140; 93005; 96374; 96375; 99284; J2270; J2405; J9999

== ENCOUNTER → 2024-09-03 12:35 | Outpatient (BNVA) | payer MEDICARE, SELFPAY | PROVIDERS: PCP Family Medicine; Visit Provider Student in an Organized Health Care Education/Training Program | DX: K21.9 Gastro-esophageal reflux disease without esophagitis (principal) | CPT/HCPCS: 99204 ==